=== PATIENT | female | born 1985 | race Caucasian/White ===

== ENCOUNTER 2016-12-08 17:37 | Emergency (ER) | payer MEDICAID ==
[~2016-12-08] VITALS: Ht 160 cm; Wt 86.2 kg
[~2016-12-08 17:37] MED LIST: ALPR0.5T96 PO; NAPR-688 PO; TRAM50TA92 PO
[2016-12-08 17:40] VITALS: BP 120/86; PULSE 65; RESP 16; TEMP 97.2; O2SAT 100
--- NOTE | 2016-12-08 17:49 | NUR ---
Patient to ER bed 3 to [facility] for evaluation. Side rails up. Report given to RADHA INTERIANO. Addendum: 12/08/16 at 1754 by GENESIS report given to Uma INTERIAON
--- NOTE | 2016-12-08 17:55 | NUR ---
Patient in stable condition, alert and oriented x4. Patient was in parking lot last night when tripped on curb in between cars and caught self on cars but left arm swung back due to catching on car. States has pain to left foot and left shoulder. Active range of motion to left foot ankle. Patient can not move left arm without pain. No deformites/bruising/swelling noted. No other complaints/injuries per patient or noted. Addendum: 12/08/16 at 1810 by AYDEE Active range of motion to left foot/ankle.
--- NOTE | 2016-12-08 17:58 | NUR ---
Jimena MEDIA ASSISTANT at bedside examining patient.
[2016-12-08] MEDS ORDERED: KETOROLAC TROMETHAMINE 60 MG/2 ML VIAL IM ONE (18:00)
[2016-12-08 19:10] VITALS: BP 122/76; PULSE 66; RESP 16; TEMP 97.2; O2SAT 100
--- NOTE | 2016-12-08 19:10 | NUR ---
Patient given written and verbal discharge instructions and verbalizes understanding. ER MD Ramirez discussed with patient the results and treatment provided. Patient in stable condition. ID arm band removed. Rx of tramadol, motrin given. Patient educated on pain management and to follow up with PMD. Pain Scale 0/10 Opportunity for questions provided and answered.
== END 2016-12-08 19:10 | disposition home or self-care (01) ==
LOC: SED 17:37
DX: S43.402A Unspecified sprain of left shoulder joint, initial encounter (principal); C53.9 Malignant neoplasm of cervix uteri, unspecified; Z90.710 Acquired absence of both cervix and uterus; Z98.890 Other specified postprocedural states; W19.XXXA Unspecified fall, initial encounter; Y93.89 Activity, other specified; Y99.8 Other external cause status; Y92.89 Other specified places as the place of occurrence of the external cause
CPT/HCPCS: 73030; 81025; 96372; 99284; J1885

== ENCOUNTER 2016-12-13 08:21 | Inpatient (IN) | payer MEDICAID ==
[~2016-12-13] VITALS: Ht 160 cm; Wt 86.2 kg
[2016-12-13 08:30] VITALS: BP 126/75; PULSE 91; RESP 14; TEMP 97.8; O2SAT 100
[2016-12-13] MEDS ORDERED: HYDROmorphone 1 MG INJ. 1 MG/ML AMPUL IVP ONE ×2 (09:15→11:15)
[2016-12-13] MEDS ORDERED: ONDANSETRON HCL 4 MG/2 ML VIAL IVP ONE (09:15)
[2016-12-13 09:29] LABS: BASOPHILS % (AUTO) 0.5 % (0.0-2.0); EOSINOPHILS # (AUTO) 0.1 K/uL (0.0-0.4); EOSINOPHILS % (AUTO) 2.6 % (0.0-4.0); HEMATOCRIT 34.6 % (36-48); HEMOGLOBIN 11.7 g/dL (12.0-16.0); LYMPHOCYTES # (AUTO) 1.8 K/uL (1.0-5.5); LYMPHOCYTES % (AUTO) 35.5 % (20.5-51.5); MEAN CORPUSCULAR HEMOGLOBIN 31 pg (27-31); MEAN CORPUSCULAR HGB CONC 34 % (32-36); MEAN CORPUSCULAR VOLUME 92 fL (79.0-98.0); MONOCYTES # (AUTO) 0.4 K/uL (0.0-1.0); MONOCYTES % (AUTO) 7.5 % (1.7-9.3); NEUTROPHILS # (AUTO) 2.7 K/uL (1.8-7.7); NEUTROPHILS % (AUTO) 53.9 % (40.0-70.0); PLATELET COUNT (AUTO) 282 K/uL (130-430); RED BLOOD CELL COUNT(AUTO) 3.75 MIL/uL (4.2-6.2); RED CELL DISTRIBUTION WIDTH 11.9 % (9.0-15.0)
[2016-12-13 09:49] LABS: CALCIUM 8.9 mg/dL (8.4-11.0); CREATININE 0.74 mg/dL (0.55-1.30); POTASSIUM 3.6 mmol/L (3.5-5.1)
[2016-12-13 10:02] LABS: TOTAL BILIRUBIN 0.4 mg/dL (0.0-1.0)
[2016-12-13 11:17] LABS: BILIRUBIN,URINE NEGATIVE (NEGATIVE); CLARITY/URINE CLEAR (CLEAR); COLOR,URINE YELLOW (YELLOW); GLUCOSE,URINE NEGATIVE (NEGATIVE); KETONES,URINE NEGATIVE (NEGATIVE); LEUKOCYTE ESTERASE ,URINE NEGATIVE (NEGATIVE); NITRITE, URINE NEGATIVE (NEGATIVE); PH,URINE 5.5 (5.0-8.0); PROTEIN URINE NEGATIVE (NEGATIVE); UROBILINOGEN,URINE 0.2 (0.2-1.0)
[2016-12-13 11:39] LABS: BLOOD, URINE TRACE (NEGATIVE)
[2016-12-13 11:58] LABS: BACTERIA,URINE RARE /HPF (None Seen); MUCUS,URINE 1+ /LPF (None Seen); RBC,URINE 0-3 /HPF (0-3)
[2016-12-13 12:10] LABS: PROTHROMBIN TIME 11.2 SECS (9.5-12.5)
[2016-12-13 13:28] VITALS: BP 118/96; PULSE 80; RESP 17; TEMP 98.1; O2SAT 97
[2016-12-13] MEDS ORDERED: IPRATROPIUM BROM 0.5 MG/2.5 ML VIAL.NEB (ATROVENT) INH PRN (13:30)
[2016-12-13] MEDS ORDERED: ACETAMINOPHEN 325 MG TABLET PO PRN (13:30)
[2016-12-13] MEDS ORDERED: ALBUTEROL SULFATE 0.083% 2.5 MG/3 ML VIAL.NEB INH PRN (13:30)
[2016-12-13] MEDS: MORPHINE 4 MG/ML INJ. SYRINGE IVP PRN ×2 (13:42→21:06)
[2016-12-13] MEDS ORDERED: PANTOPRAZOLE SODIUM 40 MG/VIAL (PROTONIX) IVP ONE (13:45)
[2016-12-13] MEDS: D5NS 1,000 ML IV SCH (13:53)
[2016-12-13 14:27] LABS: HEMATOCRIT 32.9 % (36-48); HEMOGLOBIN 11.2 g/dL (12.0-16.0)
[2016-12-13] MEDS ORDERED: IPRATROPIUM BROM 0.5 MG/2.5 ML VIAL.NEB (ATROVENT) INH SCH (15:00)
[2016-12-13] MEDS ORDERED: ALBUTEROL SULFATE 0.083% 2.5 MG/3 ML VIAL.NEB INH SCH (15:00)
[2016-12-13 15:50] VITALS: BP 115/73; PULSE 70
[2016-12-13] MEDS: ONDANSETRON HCL 4 MG/2 ML VIAL IVP PRN ×2 (16:11→22:20)
[2016-12-13] MEDS: MORPHINE 2 MG/ML INJ. SYRINGE IVP PRN (16:12)
[2016-12-13 16:30] VITALS: BP 115/73; PULSE 66; RESP 16; TEMP 97; O2SAT 97
[2016-12-13] MEDS ORDERED: BISACODYL 5 MG TABLET.DR (DULCOLAX) PO ONE (17:00)
[2016-12-13] MEDS ORDERED: GOLYTELY / COLYTE SOLUTION 4 LITERS PO ONE (18:00)
[2016-12-13 19:10] VITALS: BP 134/82; PULSE 74; RESP 19; TEMP 98.2; O2SAT 98
[2016-12-13] MEDS: PANTOPRAZOLE SODIUM 40 MG/VIAL (PROTONIX) IVP SCH (21:02)
[2016-12-13 21:57] LABS: HEMATOCRIT 31.8 % (36-48)
[2016-12-13 22:01] LABS: HEMOGLOBIN 10.7 g/dL (12.0-16.0)
[2016-12-14 00:28] VITALS: BP 120/58; PULSE 63; RESP 16; TEMP 97.3; O2SAT 98
[2016-12-14] MEDS: D5NS 1,000 ML IV SCH ×2 (02:31→11:23)
[2016-12-14] MEDS: ONDANSETRON HCL 4 MG/2 ML VIAL IVP PRN ×2 (04:37→11:13)
[2016-12-14] MEDS: MORPHINE 2 MG/ML INJ. SYRINGE IVP PRN ×2 (04:38→11:14)
[2016-12-14 04:51] VITALS: BP 126/82; PULSE 78; RESP 17; TEMP 98; O2SAT 99
[2016-12-14 07:49] LABS: HEMATOCRIT 32.5 % (36-48)
[2016-12-14] MEDS: PANTOPRAZOLE SODIUM 40 MG/VIAL (PROTONIX) IVP SCH (08:31)
[2016-12-14] MEDS ORDERED: FERR-57 PO (11:41)
[2016-12-14] MEDS ORDERED: PRO40 PO (11:41)
[2016-12-14 12:00] VITALS: BP 118/76; PULSE 74; RESP 16; TEMP 98.9; O2SAT 95
[2016-12-14 12:12] VITALS: BP 118/74; PULSE 74; RESP 18; TEMP 98.9; O2SAT 95
== END 2016-12-14 13:40 | disposition home or self-care (01) | DRG 253 ==
LOC: SED 08:22 → SMU 12:39
PROVIDERS: ADMIT Internal Medicine Hospice and Palliative Medicine; ATTEND Internal Medicine Hospice and Palliative Medicine
DX: K92.2 Gastrointestinal hemorrhage, unspecified (principal); C53.9 Malignant neoplasm of cervix uteri, unspecified; F41.9 Anxiety disorder, unspecified; J45.909 Unspecified asthma, uncomplicated; Z93.3 Colostomy status; Z90.710 Acquired absence of both cervix and uterus
CPT/HCPCS: 36415; 80053; 81000-TC; 82150-TC; 82272; 83605; 83690-TC; 85018-TC; 85025; 85610-TC; 85730-TC; 86886; 86900; 86901; 87040-TC; 96374; 96375; 96376; 99291; C9113; J1170; J2270; J2405; J7030; J7042

== ENCOUNTER 2017-03-18 14:13 | Emergency (ER) | payer MEDICAID ==
[~2017-03-18] VITALS: Ht 160 cm; Wt 70.8 kg
[~2017-03-18 14:13] MED LIST changes: +FERR-57 PO; +PRO40 PO
[2017-03-18 14:16] VITALS: BP 155/56; PULSE 120; RESP 18; TEMP 98.3; O2SAT 98
--- NOTE | 2017-03-18 14:21 | NUR ---
Placed in room [address] on [address] monitor, blood pressure machine and pulse oximeter. To gown for exam. Side rails up. Report given to Patricio
--- NOTE | 2017-03-18 14:22 | NUR ---
Dr Wild at bedside exmaining patient
[2017-03-18] MEDS ORDERED: HYDROmorphone 2 MG/ML VIAL IVP ONE (14:30)
[2017-03-18] MEDS ORDERED: DIPHENHYDRAMINE INJ 50 MG/ML VIAL IVP ONE (14:30)
[2017-03-18] MEDS ORDERED: ONDANSETRON HCL 4 MG/2 ML VIAL IVP ONE (14:30)
--- NOTE | 2017-03-18 14:30 | NUR ---
Pt presenst to Ed c/o SOB. Pt appears anxious and nonrebreather applied for pt's hyperventilation.#20 gauge angiocath placed to . Use of asceptic technique. Opsite placed over site. Blood return noted. Blood for lab drawn from site. Flushed with 10 cc of normal saline. No evidence of infiltration noted. Patient tolerated well.
[2017-03-18 14:51] LABS: BASOPHILS % (AUTO) 0.4 % (0.0-2.0); EOSINOPHILS # (AUTO) 0.4 K/uL (0.0-0.4); EOSINOPHILS % (AUTO) 4.7 % (0.0-4.0); HEMATOCRIT 38.9 % (36-48); HEMOGLOBIN 12.5 g/dL (12.0-16.0); LYMPHOCYTES # (AUTO) 3.8 K/uL (1.0-5.5); LYMPHOCYTES % (AUTO) 44.2 % (20.5-51.5); MEAN CORPUSCULAR HEMOGLOBIN 29 pg (27-31); MEAN CORPUSCULAR HGB CONC 32 % (32-36); MEAN CORPUSCULAR VOLUME 91 fL (79.0-98.0); MONOCYTES # (AUTO) 0.9 K/uL (0.0-1.0); MONOCYTES % (AUTO) 9.9 % (1.7-9.3); NEUTROPHILS # (AUTO) 3.6 K/uL (1.8-7.7); NEUTROPHILS % (AUTO) 40.8 % (40.0-70.0); PLATELET COUNT (AUTO) 321 K/uL (130-430); RED CELL DISTRIBUTION WIDTH 12.8 % (9.0-15.0); WHITE BLOOD COUNT (AUTO) 8.7 K/uL (4.8-10.8)
--- NOTE | 2017-03-18 15:00 | NUR ---
Urine specimen collected and sent.
[2017-03-18 15:25] LABS: ANION GAP 8 (5-15); CALCIUM 8.9 mg/dL (8.4-11.0); CHLORIDE 102 mmol/L (98-107); CREATININE 0.77 mg/dL (0.55-1.30); GLUCOSE 99 mg/dL (70-99); POTASSIUM 3.8 mmol/L (3.5-5.1); SODIUM SERUM 135 mmol/L (136-145); UREA NITROGEN, BLOOD 16 mg/dL (8-21)
[2017-03-18 15:26] LABS: INR 0.9 (0.8-1.2); PROTHROMBIN TIME 10.3 SECS (9.5-12.5)
[2017-03-18 15:29] LABS: ALANINE AMINOTRANSFERASE 20 U/L (12-78); ALBUMIN 4.1 g/dL (3.4-4.8); ASPARTATE AMINOTRANSFERASE 17 U/L (10-37); TOTAL BILIRUBIN 0.3 mg/dL (0.0-1.0); TOTAL PROTEIN, SERUM 8.7 g/dL (6.4-8.3)
[2017-03-18 15:30] LABS: GFR AFRICAN AMERICAN 112 mL/min (>90)
[2017-03-18 15:31] LABS: ALCOHOL, BLOOD < 3 mg/dL (<10)
--- NOTE | 2017-03-18 15:32 | NUR ---
Pt has family at bedside helping to keep pot calm.
[2017-03-18 15:36] LABS: BILIRUBIN,URINE NEGATIVE (NEGATIVE); CLARITY/URINE HAZY (CLEAR); COLOR,URINE YELLOW (YELLOW); GLUCOSE,URINE NEGATIVE (NEGATIVE); KETONES,URINE NEGATIVE (NEGATIVE); LEUKOCYTE ESTERASE ,URINE NEGATIVE (NEGATIVE); NITRITE, URINE NEGATIVE (NEGATIVE); PROTEIN URINE NEGATIVE (NEGATIVE); UROBILINOGEN,URINE 0.2 (0.2-1.0)
[2017-03-18 15:38] LABS: BLOOD, URINE TRACE (NEGATIVE)
--- NOTE | 2017-03-18 15:40 | NUR ---
Pt reports h/o seizures. Pt taking dilantin and
--- NOTE | 2017-03-18 15:40 | NUR ---
seizure pads applied
--- NOTE | 2017-03-18 15:42 | NUR ---
Dr. Wild informed, Dilantin level addwds to labs.
[2017-03-18 15:59] LABS: BACTERIA,URINE FEW /HPF (None Seen); MUCUS,URINE None Seen /LPF (None Seen); RBC,URINE 0-3 /HPF (0-3)
--- NOTE | 2017-03-18 16:20 | NUR ---
Patient given written and verbal discharge instructions and verbalizes understanding. ER MD discussed with patient the results and treatment provided. Patient in stable condition. ID arm band removed. IV catheter removed intact and dressing applied, no active bleeding. Rx of dilantin given. Patient educated on pain management and to follow up with PMD. Pain Scale 2 Opportunity for questions provided and answered.
[2017-03-18 16:30] VITALS: BP 140/62; PULSE 86; RESP 18; TEMP 98.2; O2SAT 98
[2017-03-18 16:35] LABS: BARBITURATE, URINE NEGATIVE (NEG <=200); BENZODIAZEPINE, URINE POSITIVE (NEG <=150); CANNABINOID, URINE NEGATIVE (NEG <=50); COCAINE, URINE NEGATIVE (NEG <=150); METHAMPHETAMINES SCREEN,URINE NEGATIVE (NEG <=500); OPIATE, URINE POSITIVE (NEG <=100); PHENCYCLIDINE SCREEN,URINE NEGATIVE (NEG <=25); UR TRICYCLIC ANTIDEPRESSANTS NEGATIVE (NEG <=300); URINE AMPHETAMINE NEGATIVE (NEG <=500); URINE METHADONE NEGATIVE (NEG <=200); URINE OXYCODONE SCREEN NEGATIVE (NEG <=100); URINE PROPOXYPHENE SCREEN NEGATIVE (NEG <=300)
== END 2017-03-18 16:30 | disposition home or self-care (01) ==
LOC: SED 14:13
DX: S29.012A Strain of muscle and tendon of back wall of thorax, initial encounter (principal); F41.9 Anxiety disorder, unspecified; J44.9 Chronic obstructive pulmonary disease, unspecified; Z85.41 Personal history of malignant neoplasm of cervix uteri; X58.XXXA Exposure to other specified factors, initial encounter; Y93.E1 Activity, personal bathing and showering; Y92.002 Bathroom of unspecified non-institutional (private) residence as the place of occurrence of the external cause; Y99.8 Other external cause status
CPT/HCPCS: 36415; 71010; 80053; 80185; 80307; 81000; 83880; 84484; 85025; 85379; 85610; 93005; 96374; 96375; 99285; G0482; J1170; J1200; J2405

== ENCOUNTER 2017-06-16 08:30 | Emergency (ER) | payer MEDICAID ==
[~2017-06-16] VITALS: Ht 160 cm; Wt 81.6 kg
[~2017-06-16 08:30] MED LIST changes: -NAPR-688 PO
[2017-06-16 08:39] VITALS: BP_SYST 131
--- NOTE | 2017-06-16 08:50 | NUR ---
Patient to ER bed 3 to gown for evaluation. Side rails up. Report given to Patricio INTERIANO.
--- NOTE | 2017-06-16 08:51 | NUR ---
CHALO Leon at bedside examining patient.
--- NOTE | 2017-06-16 08:53 | NUR ---
urine specimen collected and sent.
--- NOTE | 2017-06-16 09:00 | NUR ---
Pt presents to Ed c/o L flank, arm,leg pain x 4 days worsening this AM with c/o nausea. Pt h/o bowel resection and colon ca. No acute distress noted at this time. Will continue monitor.
--- NOTE | 2017-06-16 09:33 | NUR ---
Patient transported to radiology via gurney, accompanied by rad staff.
[2017-06-16 09:37] LABS: BILIRUBIN,URINE NEGATIVE (NEGATIVE); CLARITY/URINE SL HAZY (CLEAR); COLOR,URINE YELLOW (YELLOW); GLUCOSE,URINE NEGATIVE (NEGATIVE); KETONES,URINE NEGATIVE (NEGATIVE); LEUKOCYTE ESTERASE ,URINE NEGATIVE (NEGATIVE); NITRITE, URINE NEGATIVE (NEGATIVE); PROTEIN URINE NEGATIVE (NEGATIVE); UROBILINOGEN,URINE 0.2 (0.2-1.0)
[2017-06-16] MEDS ORDERED: ONDANSETRON 4 MG ODT TAB PO ONE (09:45)
[2017-06-16 09:53] LABS: BLOOD, URINE TRACE (NEGATIVE)
[2017-06-16 09:53] LABS: BASOPHILS % (AUTO) 0.3 % (0.0-2.0); EOSINOPHILS # (AUTO) 0.1 K/uL (0.0-0.4); EOSINOPHILS % (AUTO) 1.8 % (0.0-4.0); HEMOGLOBIN 11.7 g/dL (12.0-16.0); LYMPHOCYTES # (AUTO) 1.4 K/uL (1.0-5.5); LYMPHOCYTES % (AUTO) 32.2 % (20.5-51.5); MEAN CORPUSCULAR HEMOGLOBIN 31 pg (27-31); MEAN CORPUSCULAR HGB CONC 34 % (32-36); MEAN CORPUSCULAR VOLUME 91 fL (79.0-98.0); MONOCYTES # (AUTO) 0.3 K/uL (0.0-1.0); MONOCYTES % (AUTO) 8.1 % (1.7-9.3); NEUTROPHILS # (AUTO) 2.5 K/uL (1.8-7.7); NEUTROPHILS % (AUTO) 57.6 % (40.0-70.0); PLATELET COUNT (AUTO) 275 K/uL (130-430); RED BLOOD CELL COUNT(AUTO) 3.74 MIL/uL (4.2-6.2); RED CELL DISTRIBUTION WIDTH 12.7 % (9.0-15.0); WHITE BLOOD COUNT (AUTO) 4.3 K/uL (4.8-10.8)
[2017-06-16 09:55] LABS: RBC,URINE 0-3 /HPF (0-3); WBC,URINE 0-3 /HPF (0-3)
[2017-06-16 09:56] LABS: BACTERIA,URINE RARE /HPF (None Seen)
[2017-06-16 09:58] LABS: BARBITURATE, URINE POSITIVE (NEG <=200); BENZODIAZEPINE, URINE POSITIVE (NEG <=150); CANNABINOID, URINE NEGATIVE (NEG <=50); COCAINE, URINE NEGATIVE (NEG <=150); METHAMPHETAMINES SCREEN,URINE NEGATIVE (NEG <=500); OPIATE, URINE NEGATIVE (NEG <=100); PHENCYCLIDINE SCREEN,URINE NEGATIVE (NEG <=25); UR TRICYCLIC ANTIDEPRESSANTS NEGATIVE (NEG <=300); URINE AMPHETAMINE NEGATIVE (NEG <=500); URINE METHADONE NEGATIVE (NEG <=200); URINE OXYCODONE SCREEN NEGATIVE (NEG <=100); URINE PROPOXYPHENE SCREEN NEGATIVE (NEG <=300)
[2017-06-16 10:02] LABS: CALCIUM 8.8 mg/dL (8.4-11.0); CREATININE 0.68 mg/dL (0.55-1.30); POTASSIUM 3.8 mmol/L (3.5-5.1)
--- NOTE | 2017-06-16 10:05 | NUR ---
Pt medicated for nausea tolerated well.
[2017-06-16 10:17] LABS: ALBUMIN 3.6 g/dL (3.4-4.8); THYROID STIMULATING HORMONE 0.8 uIu/mL (0.34-4.82); TOTAL BILIRUBIN 0.5 mg/dL (0.0-1.0); TOTAL PROTEIN, SERUM 7.7 g/dL (6.4-8.3)
[2017-06-16 10:55] VITALS: BP_SYST 132
--- NOTE | 2017-06-16 10:55 | NUR ---
Patient given written and verbal discharge instructions and verbalizes understanding. ER MD discussed with patient the results and treatment provided. Patient in stable condition. ID arm band removed. No Rx given. Patient educated on pain management and to follow up with PMD. Pain Scale 0 Opportunity for questions provided and answered.
== END 2017-06-16 10:55 | disposition home or self-care (01) ==
LOC: SED 08:30
DX: R20.0 Anesthesia of skin (principal); R53.1 Weakness; J44.9 Chronic obstructive pulmonary disease, unspecified; Z85.41 Personal history of malignant neoplasm of cervix uteri; Z79.899 Other long term (current) drug therapy
CPT/HCPCS: 36415; 70450; 80053; 80307; 81000; 81025; 84443; 85025; 93005; 99285; Q0162

== ENCOUNTER 2017-10-29 09:23 | Emergency (ER) | payer MEDICAID ==
[~2017-10-29] VITALS: Ht 160 cm; Wt 83.9 kg
[2017-10-29 09:51] VITALS: BP_SYST 149
[2017-10-29 10:21] LABS: BILIRUBIN,URINE NEGATIVE (NEGATIVE); BLOOD, URINE NEGATIVE (NEGATIVE); CLARITY/URINE CLEAR (CLEAR); COLOR,URINE YELLOW (YELLOW); GLUCOSE,URINE NEGATIVE (NEGATIVE); KETONES,URINE NEGATIVE (NEGATIVE); LEUKOCYTE ESTERASE ,URINE NEGATIVE (NEGATIVE); NITRITE, URINE NEGATIVE (NEGATIVE); PH,URINE 5.5 (5.0-8.0); PROTEIN URINE NEGATIVE (NEGATIVE); UROBILINOGEN,URINE 0.2 (0.2-1.0)
[2017-10-29 10:48] LABS: BASOPHILS % (AUTO) 0.5 % (0.0-2.0); EOSINOPHILS # (AUTO) 0.2 K/uL (0.0-0.4); EOSINOPHILS % (AUTO) 3.2 % (0.0-4.0); HEMATOCRIT 39.2 % (36-48); HEMOGLOBIN 12.9 g/dL (12.0-16.0); LYMPHOCYTES # (AUTO) 2.2 K/uL (1.0-5.5); LYMPHOCYTES % (AUTO) 39.4 % (20.5-51.5); MEAN CORPUSCULAR HEMOGLOBIN 30 pg (27-31); MEAN CORPUSCULAR HGB CONC 33 % (32-36); MEAN CORPUSCULAR VOLUME 92 fL (79.0-98.0); MONOCYTES # (AUTO) 0.3 K/uL (0.0-1.0); MONOCYTES % (AUTO) 6.1 % (1.7-9.3); NEUTROPHILS # (AUTO) 2.8 K/uL (1.8-7.7); NEUTROPHILS % (AUTO) 50.8 % (40.0-70.0); PLATELET COUNT (AUTO) 305 K/uL (130-430); RED BLOOD CELL COUNT(AUTO) 4.26 MIL/uL (4.2-6.2); RED CELL DISTRIBUTION WIDTH 12.2 % (9.0-15.0); WHITE BLOOD COUNT (AUTO) 5.5 K/uL (4.8-10.8)
[2017-10-29 11:06] LABS: CREATININE 0.56 mg/dL (0.55-1.30); POTASSIUM 4.2 mmol/L (3.5-5.1)
[2017-10-29 11:12] LABS: ALBUMIN 3.6 g/dL (3.4-4.8); TOTAL BILIRUBIN 0.5 mg/dL (0.0-1.0)
[2017-10-29 11:57] VITALS: BP_SYST 148
== END 2017-10-29 11:57 | disposition home or self-care (01) ==
LOC: SED 09:23
DX: J06.9 Acute upper respiratory infection, unspecified (principal); R10.32 Left lower quadrant pain; J44.9 Chronic obstructive pulmonary disease, unspecified; Z85.41 Personal history of malignant neoplasm of cervix uteri; Z79.899 Other long term (current) drug therapy
CPT/HCPCS: 36415; 80053; 81003; 83690-TC; 85025; 86403; 86710; 87081; 99284

== ENCOUNTER 2017-12-14 09:47 | Emergency (ER) | payer MEDICAID ==
[~2017-12-14] VITALS: Ht 160 cm; Wt 83.9 kg
[2017-12-14 09:47] VITALS: BP_SYST 125
[2017-12-14] MEDS ORDERED: NACL 0.9% 1,000 ML IV ONE (10:05)
[2017-12-14] MEDS ORDERED: MORPHINE 4 MG/ML INJ. SYRINGE IVP ONE (10:15)
[2017-12-14] MEDS ORDERED: ONDANSETRON HCL 4 MG/2 ML VIAL IVP ONE (10:15)
[2017-12-14] MEDS ORDERED: ASPIRIN 325 MG TABLET PO ONE (10:15)
[2017-12-14 10:35] LABS: BILIRUBIN,URINE NEGATIVE (NEGATIVE); BLOOD, URINE 1+ (NEGATIVE); CLARITY/URINE CLEAR (CLEAR); COLOR,URINE YELLOW (YELLOW); GLUCOSE,URINE NEGATIVE (NEGATIVE); KETONES,URINE NEGATIVE (NEGATIVE); LEUKOCYTE ESTERASE ,URINE NEGATIVE (NEGATIVE); NITRITE, URINE NEGATIVE (NEGATIVE); PROTEIN URINE NEGATIVE (NEGATIVE); UROBILINOGEN,URINE 0.2 (0.2-1.0)
[2017-12-14 10:46] LABS: BACTERIA,URINE FEW /HPF (None Seen); MUCUS,URINE 1+ /LPF (None Seen); WBC,URINE 0-3 /HPF (0-3)
[2017-12-14 11:03] LABS: EOSINOPHILS # (AUTO) 0.1 K/uL (0.0-0.4); MEAN CORPUSCULAR VOLUME 92 fL (79.0-98.0); RED CELL DISTRIBUTION WIDTH 11.9 % (9.0-15.0)
[2017-12-14 11:10] LABS: BASOPHILS % (AUTO) 0.7 % (0.0-2.0); EOSINOPHILS % (AUTO) 2.2 % (0.0-4.0); HEMATOCRIT 37.8 % (36-48); HEMOGLOBIN 12.9 g/dL (12.0-16.0); LYMPHOCYTES # (AUTO) 1.5 K/uL (1.0-5.5); LYMPHOCYTES % (AUTO) 35.6 % (20.5-51.5); MEAN CORPUSCULAR HEMOGLOBIN 31 pg (27-31); MEAN CORPUSCULAR HGB CONC 34 % (32-36); MONOCYTES # (AUTO) 0.4 K/uL (0.0-1.0); MONOCYTES % (AUTO) 8.5 % (1.7-9.3); NEUTROPHILS # (AUTO) 2.3 K/uL (1.8-7.7); PLATELET COUNT (AUTO) 300 K/uL (130-430); RED BLOOD CELL COUNT(AUTO) 4.09 MIL/uL (4.2-6.2); WHITE BLOOD COUNT (AUTO) 4.3 K/uL (4.8-10.8)
[2017-12-14 11:18] LABS: CREATININE 0.65 mg/dL (0.55-1.30); POTASSIUM 3.8 mmol/L (3.5-5.1)
[2017-12-14 11:21] LABS: PROTHROMBIN TIME 10.4 SECS (9.5-12.5)
[2017-12-14 11:24] LABS: ALBUMIN 3.6 g/dL (3.4-4.8); TOTAL BILIRUBIN 0.6 mg/dL (0.0-1.0)
[2017-12-14 11:49] VITALS: BP_SYST 115
== END 2017-12-14 11:49 | disposition home or self-care (01) ==
LOC: SED 09:47
DX: R10.32 Left lower quadrant pain (principal); R11.0 Nausea; R51 Headache; J45.909 Unspecified asthma, uncomplicated; Z90.710 Acquired absence of both cervix and uterus; Z85.41 Personal history of malignant neoplasm of cervix uteri; Z98.890 Other specified postprocedural states; Z79.899 Other long term (current) drug therapy
CPT/HCPCS: 36415; 74176; 80053; 81000; 82150; 83690; 84484; 85025; 85610; 85730; 93005; 96361; 96374; 96375; 99285; J2270; J2405; J7030

== ENCOUNTER 2018-01-03 08:58 | Emergency (ER) | payer MEDICAID ==
[~2018-01-03] VITALS: Ht 160 cm; Wt 84.8 kg
[2018-01-03 09:15] VITALS: BP_SYST 125
[2018-01-03 09:38] LABS: BASOPHILS % (AUTO) 0.5 % (0.0-2.0); EOSINOPHILS # (AUTO) 0.1 K/uL (0.0-0.4); EOSINOPHILS % (AUTO) 1.8 % (0.0-4.0); HEMATOCRIT 37.8 % (36-48); HEMOGLOBIN 12.8 g/dL (12.0-16.0); LYMPHOCYTES # (AUTO) 1.8 K/uL (1.0-5.5); MEAN CORPUSCULAR HEMOGLOBIN 31 pg (27-31); MEAN CORPUSCULAR HGB CONC 34 % (32-36); MEAN CORPUSCULAR VOLUME 92 fL (79.0-98.0); MONOCYTES # (AUTO) 0.3 K/uL (0.0-1.0); MONOCYTES % (AUTO) 6.2 % (1.7-9.3); NEUTROPHILS # (AUTO) 3.1 K/uL (1.8-7.7); NEUTROPHILS % (AUTO) 56.5 % (40.0-70.0); PLATELET COUNT (AUTO) 355 K/uL (130-430); RED BLOOD CELL COUNT(AUTO) 4.11 MIL/uL (4.2-6.2); RED CELL DISTRIBUTION WIDTH 12.1 % (9.0-15.0); WHITE BLOOD COUNT (AUTO) 5.3 K/uL (4.8-10.8)
[2018-01-03 09:50] LABS: CALCIUM 9.1 mg/dL (8.4-11.0); CREATININE 0.64 mg/dL (0.55-1.30); POTASSIUM 3.5 mmol/L (3.5-5.1)
--- NOTE | 2018-01-03 10:21 | NUR ---
[facility] ER [facility] Side rails up. Report given to Stephani INTERIANO.
--- NOTE | 2018-01-03 10:28 | NUR ---
ER Dr. Carrasquillo at bedside examining patient.
--- NOTE | 2018-01-03 10:35 | NUR ---
Patient given written and verbal discharge instructions and verbalizes understanding. ER MD discussed with patient the results and treatment provided. Patient in stable condition. ID arm band removed. Rx of Prednisone, tylenol, Robitussin given. Patient educated on pain management and to follow up with PMD. Pain Scale 0/10. Opportunity for questions provided and answered. Medication side effect fact sheet provided.
== END 2018-01-03 10:35 | disposition home or self-care (01) ==
LOC: SED 08:58
DX: J40 Bronchitis, not specified as acute or chronic (principal); R10.30 Lower abdominal pain, unspecified; R03.0 Elevated blood-pressure reading, without diagnosis of hypertension; Z85.41 Personal history of malignant neoplasm of cervix uteri; Z79.899 Other long term (current) drug therapy
CPT/HCPCS: 36415; 71046-TC; 80048; 85025; 99285

== ENCOUNTER 2018-05-08 23:33 | Emergency (ER) | payer MEDICAID ==
[~2018-05-08] VITALS: Ht 160 cm; Wt 83.9 kg
[2018-05-08 23:45] VITALS: BP_SYST 124
[2018-05-09] MEDS ORDERED: NACL 0.9% 1,000 ML IV ONE ×2 (00:37→03:00)
[2018-05-09] MEDS ORDERED: MORPHINE 4 MG/ML INJ. SYRINGE IVP ONE ×2 (00:45→03:00)
[2018-05-09] MEDS ORDERED: ONDANSETRON HCL 4 MG/2 ML VIAL IVP ONE (00:45)
[2018-05-09 01:18] LABS: BASOPHILS % (AUTO) 0.4 % (0.0-2.0); EOSINOPHILS % (AUTO) 0.9 % (0.0-4.0); HEMATOCRIT 34.5 % (36-48); HEMOGLOBIN 11.9 g/dL (12.0-16.0); MEAN CORPUSCULAR HEMOGLOBIN 32 pg (27-31); MEAN CORPUSCULAR HGB CONC 34 % (32-36); MEAN CORPUSCULAR VOLUME 94 fL (79.0-98.0); MONOCYTES # (AUTO) 0.5 K/uL (0.0-1.0); MONOCYTES % (AUTO) 10.1 % (1.7-9.3); NEUTROPHILS # (AUTO) 2.8 K/uL (1.8-7.7); NEUTROPHILS % (AUTO) 50.6 % (40.0-70.0); PLATELET COUNT (AUTO) 274 K/uL (130-430); RED BLOOD CELL COUNT(AUTO) 3.67 MIL/uL (4.2-6.2); RED CELL DISTRIBUTION WIDTH 12.2 % (9.0-15.0); WHITE BLOOD COUNT (AUTO) 5.3 K/uL (4.8-10.8)
[2018-05-09 01:21] LABS: CALCIUM 8.7 mg/dL (8.4-11.0); CREATININE 0.81 mg/dL (0.55-1.30); POTASSIUM 4.3 mmol/L (3.5-5.1)
[2018-05-09 01:26] LABS: ALBUMIN 3.6 g/dL (3.4-4.8); TOTAL BILIRUBIN 0.2 mg/dL (0.0-1.0)
[2018-05-09 01:39] LABS: BILIRUBIN,URINE NEGATIVE (NEGATIVE); BLOOD, URINE 1+ (NEGATIVE); CLARITY/URINE CLEAR (CLEAR); COLOR,URINE YELLOW (YELLOW); GLUCOSE,URINE NEGATIVE (NEGATIVE); KETONES,URINE NEGATIVE (NEGATIVE); LEUKOCYTE ESTERASE ,URINE NEGATIVE (NEGATIVE); NITRITE, URINE NEGATIVE (NEGATIVE); PROTEIN URINE NEGATIVE (NEGATIVE); UROBILINOGEN,URINE 0.2 (0.2-1.0)
[2018-05-09 01:53] LABS: BACTERIA,URINE FEW /HPF (None Seen); WBC,URINE 0-3 /HPF (0-3)
[2018-05-09] MEDS ORDERED: KETOROLAC TROMETHAMINE 30 MG VIAL IVP ONE (03:00)
[2018-05-09] MEDS ORDERED: DIPHENHYDRAMINE INJ 50 MG/ML VIAL IVP ONE (03:00)
[2018-05-09 04:32] VITALS: BP_SYST 112
== END 2018-05-09 04:32 | disposition home or self-care (01) ==
LOC: SED 23:33
DX: N83.201 Unspecified ovarian cyst, right side (principal); R10.32 Left lower quadrant pain; J45.909 Unspecified asthma, uncomplicated; Z90.710 Acquired absence of both cervix and uterus; Z85.41 Personal history of malignant neoplasm of cervix uteri; Z79.899 Other long term (current) drug therapy
CPT/HCPCS: 36415; 74176; 80053; 81000; 85025; 96361; 96374; 96375; 96376; 99285; J1200; J1885; J2270; J2405; J7030 ×2

== ENCOUNTER 2018-05-09 11:50 | Emergency (ER) | payer MEDICAID ==
[~2018-05-09] VITALS: Ht 160 cm; Wt 83.9 kg
[2018-05-09 11:50] VITALS: BP_SYST 117
[2018-05-09] MEDS ORDERED: MORPHINE 4 MG/ML INJ. SYRINGE IM ONE (12:15)
[2018-05-09] MEDS ORDERED: ONDANSETRON 4 MG ODT TAB PO ONE (12:15)
[2018-05-09 13:35] VITALS: BP_SYST 100
== END 2018-05-09 13:30 | disposition home or self-care (01) ==
LOC: SED 11:50
DX: N83.201 Unspecified ovarian cyst, right side (principal); J45.909 Unspecified asthma, uncomplicated; Z85.41 Personal history of malignant neoplasm of cervix uteri; Z90.710 Acquired absence of both cervix and uterus; Z79.899 Other long term (current) drug therapy
CPT/HCPCS: 96372; 99283; J2270; Q0162

== ENCOUNTER 2018-05-16 18:56 | Emergency (ER) | payer MEDICAID ==
[~2018-05-16] VITALS: Ht 160 cm; Wt 83.9 kg
[~2018-05-16 18:56] MED LIST changes: +ALPR0.5T PO; -ALPR0.5T96 PO
[2018-05-16 19:15] VITALS: BP_SYST 123
[2018-05-16] MEDS ORDERED: NACL 0.9% 1,000 ML IV ONE (19:41)
[2018-05-16] MEDS ORDERED: MORPHINE 4 MG/ML INJ. SYRINGE IVP ONE ×2 (19:45→22:00)
[2018-05-16] MEDS ORDERED: ONDANSETRON HCL 4 MG/2 ML VIAL IVP ONE (19:45)
[2018-05-16] MEDS ORDERED: KETOROLAC TROMETHAMINE 30 MG VIAL IVP ONE (19:45)
[2018-05-16 20:23] LABS: BILIRUBIN,URINE NEGATIVE (NEGATIVE); CLARITY/URINE CLEAR (CLEAR); COLOR,URINE YELLOW (YELLOW); GLUCOSE,URINE NEGATIVE (NEGATIVE); KETONES,URINE NEGATIVE (NEGATIVE); LEUKOCYTE ESTERASE ,URINE NEGATIVE (NEGATIVE); NITRITE, URINE NEGATIVE (NEGATIVE); PH,URINE 5.5 (5.0-8.0); PROTEIN URINE NEGATIVE (NEGATIVE); UROBILINOGEN,URINE 0.2 (0.2-1.0)
[2018-05-16 20:25] LABS: CALCIUM 8.4 mg/dL (8.4-11.0); CREATININE 0.73 mg/dL (0.55-1.30); POTASSIUM 3.8 mmol/L (3.5-5.1)
[2018-05-16 20:26] LABS: BASOPHILS % (AUTO) 0.3 % (0.0-2.0); EOSINOPHILS % (AUTO) 0.7 % (0.0-4.0); HEMATOCRIT 33.4 % (36-48); HEMOGLOBIN 11.8 g/dL (12.0-16.0); LYMPHOCYTES # (AUTO) 2.5 K/uL (1.0-5.5); LYMPHOCYTES % (AUTO) 45.6 % (20.5-51.5); MEAN CORPUSCULAR HEMOGLOBIN 33 pg (27-31); MEAN CORPUSCULAR HGB CONC 35 % (32-36); MEAN CORPUSCULAR VOLUME 94 fL (79.0-98.0); MONOCYTES # (AUTO) 0.5 K/uL (0.0-1.0); MONOCYTES % (AUTO) 8.9 % (1.7-9.3); NEUTROPHILS # (AUTO) 2.4 K/uL (1.8-7.7); NEUTROPHILS % (AUTO) 44.5 % (40.0-70.0); PLATELET COUNT (AUTO) 262 K/uL (130-430); RED BLOOD CELL COUNT(AUTO) 3.57 MIL/uL (4.2-6.2); RED CELL DISTRIBUTION WIDTH 12.1 % (9.0-15.0); WHITE BLOOD COUNT (AUTO) 5.4 K/uL (4.8-10.8)
[2018-05-16 20:27] LABS: BLOOD, URINE TRACE (NEGATIVE)
[2018-05-16 20:30] LABS: ALBUMIN 3.5 g/dL (3.4-4.8); TOTAL BILIRUBIN 0.3 mg/dL (0.0-1.0)
[2018-05-16 20:43] LABS: BACTERIA,URINE RARE /HPF (None Seen); WBC,URINE 0-3 /HPF (0-3)
[2018-05-16 22:55] VITALS: BP_SYST 118
== END 2018-05-16 22:55 | disposition home or self-care (01) ==
LOC: SED 18:56
DX: N83.209 Unspecified ovarian cyst, unspecified side (principal); K59.00 Constipation, unspecified; J45.909 Unspecified asthma, uncomplicated; Z90.710 Acquired absence of both cervix and uterus; Z85.41 Personal history of malignant neoplasm of cervix uteri; Z79.899 Other long term (current) drug therapy
CPT/HCPCS: 36415; 74176; 76856; 80053; 81000; 81025; 83690; 85025; 96361; 96374; 96375; 99285; J1885; J2270; J2405; J7030

== ENCOUNTER 2018-09-02 00:34 | Emergency (ER) | payer MEDICAID ==
[2018-09-02] MEDS ORDERED: fentaNYL CITRATE/PF 100 MCG/2 ML AMP IVP ONE (01:20)
[2018-09-02] MEDS ORDERED: methylPREDNISolone SOD SUCC/PF 62.5 MG/ML VIAL IVP ONE (01:20)
[2018-09-02] MEDS ORDERED: methylPREDNISolone SOD SUCC/PF 62.5 MG/ML VIAL ONE (01:34)
[2018-09-02] MEDS ORDERED: fentaNYL CITRATE/PF 100 MCG/2 ML AMP ONE (01:35)
== END 2018-09-02 02:25 | disposition home or self-care (01) ==
LOC: SED 00:34
DX: M79.602 Pain in left arm (principal)
CPT/HCPCS: 96374; 96375; 99284; J2930; J3010; 99281

== ENCOUNTER 2018-09-28 10:18 | Emergency (ER) | payer MEDICAID ==
[~2018-09-28] VITALS: Ht 160 cm; Wt 83.9 kg
[2018-09-28 10:38] VITALS: BP_SYST 126
[2018-09-28] MEDS ORDERED: KETOROLAC TROMETHAMINE 15 MG VIAL IVP ONE (11:00)
[2018-09-28 11:20] LABS: BASOPHILS % (AUTO) 0.9 % (0.0-2.0); EOSINOPHILS % (AUTO) 0.9 % (0.0-4.0); HEMATOCRIT 39.4 % (36-48); HEMOGLOBIN 12.6 g/dL (12.0-16.0); LYMPHOCYTES # (AUTO) 1.9 K/uL (1.0-5.5); LYMPHOCYTES % (AUTO) 35.4 % (20.5-51.5); MEAN CORPUSCULAR HEMOGLOBIN 30 pg (27-31); MEAN CORPUSCULAR HGB CONC 32 % (32-36); MEAN CORPUSCULAR VOLUME 94 fL (79.0-98.0); MONOCYTES # (AUTO) 0.4 K/uL (0.0-1.0); MONOCYTES % (AUTO) 7.4 % (1.7-9.3); NEUTROPHILS % (AUTO) 55.4 % (40.0-70.0); PLATELET COUNT (AUTO) 352 K/uL (130-430); RED BLOOD CELL COUNT(AUTO) 4.17 MIL/uL (4.2-6.2); RED CELL DISTRIBUTION WIDTH 12.1 % (9.0-15.0); WHITE BLOOD COUNT (AUTO) 5.3 K/uL (4.8-10.8)
[2018-09-28] MEDS ORDERED: fentaNYL CITRATE/PF 100 MCG/2 ML AMP IVP ONE (12:30)
[2018-09-28 12:34] LABS: BILIRUBIN,URINE NEGATIVE (NEGATIVE); BLOOD, URINE 1+ (NEGATIVE); CLARITY/URINE CLEAR (CLEAR); COLOR,URINE YELLOW (YELLOW); GLUCOSE,URINE NEGATIVE (NEGATIVE); KETONES,URINE NEGATIVE (NEGATIVE); LEUKOCYTE ESTERASE ,URINE NEGATIVE (NEGATIVE); NITRITE, URINE NEGATIVE (NEGATIVE); PROTEIN URINE NEGATIVE (NEGATIVE); UROBILINOGEN,URINE 0.2 (0.2-1.0)
[2018-09-28] MEDS ORDERED: ONDANSETRON HCL 4 MG/2 ML VIAL IVP ONE (12:45)
[2018-09-28 13:05] VITALS: BP_SYST 126
[2018-09-28 13:09] LABS: BACTERIA,URINE FEW /HPF (None Seen); WBC,URINE 0-3 /HPF (0-3)
[2018-09-30 00:49] LABS: CHLAMYDIA TRACHOMATIS NAA Negative (Negative); NEISSERIA GONORRHOEAE NAA Negative (Negative)
== END 2018-09-28 13:05 | disposition home or self-care (01) ==
LOC: SED 10:18
DX: O34.81 Maternal care for other abnormalities of pelvic organs, first trimester (principal); O26.891 Other specified pregnancy related conditions, first trimester; R10.2 Pelvic and perineal pain; R03.0 Elevated blood-pressure reading, without diagnosis of hypertension; J45.909 Unspecified asthma, uncomplicated; Z85.41 Personal history of malignant neoplasm of cervix uteri; Z90.710 Acquired absence of both cervix and uterus; Z79.899 Other long term (current) drug therapy; Z3A.01 Less than 8 weeks gestation of pregnancy
CPT/HCPCS: 36415; 74176; 81000; 81025; 84702; 85025; 87491; 87591; 96374; 96375; 99284; J1885; J3010

== ENCOUNTER 2018-10-02 20:27 | Emergency (ER) | payer MEDICAID ==
[~2018-10-02] VITALS: Ht 160 cm; Wt 83.9 kg
[2018-10-02 20:45] VITALS: BP_SYST 128
[2018-10-02] MEDS ORDERED: NACL 0.9% 1,000 ML IV ONE (21:44)
[2018-10-02] MEDS ORDERED: DIPHENHYDRAMINE INJ 50 MG/ML VIAL IVP ONE (21:45)
[2018-10-02] MEDS ORDERED: KETOROLAC TROMETHAMINE 30 MG VIAL IVP ONE (21:45)
[2018-10-02 21:56] LABS: BILIRUBIN,URINE NEGATIVE (NEGATIVE); BLOOD, URINE 1+ (NEGATIVE); CLARITY/URINE CLEAR (CLEAR); COLOR,URINE YELLOW (YELLOW); GLUCOSE,URINE NEGATIVE (NEGATIVE); KETONES,URINE 1+ (NEGATIVE); LEUKOCYTE ESTERASE ,URINE NEGATIVE (NEGATIVE); NITRITE, URINE NEGATIVE (NEGATIVE); PROTEIN URINE NEGATIVE (NEGATIVE); UROBILINOGEN,URINE 0.2 (0.2-1.0)
[2018-10-02 22:05] LABS: BACTERIA,URINE FEW /HPF (None Seen); MUCUS,URINE 1+ /LPF (None Seen); RBC,URINE 0-3 /HPF (0-3); WBC,URINE 0-3 /HPF (0-3)
[2018-10-02] MEDS ORDERED: ONDANSETRON HCL 4 MG/2 ML VIAL ONE (22:05)
[2018-10-02 22:06] LABS: BASOPHILS # (AUTO) 0.1 K/uL (0.0-0.2); BASOPHILS % (AUTO) 0.8 % (0.0-2.0); EOSINOPHILS # (AUTO) 0.1 K/uL (0.0-0.4); EOSINOPHILS % (AUTO) 0.8 % (0.0-4.0); HEMATOCRIT 36.1 % (36-48); HEMOGLOBIN 11.2 g/dL (12.0-16.0); LYMPHOCYTES # (AUTO) 2.4 K/uL (1.0-5.5); LYMPHOCYTES % (AUTO) 36.3 % (20.5-51.5); MEAN CORPUSCULAR HEMOGLOBIN 29 pg (27-31); MEAN CORPUSCULAR HGB CONC 31 % (32-36); MEAN CORPUSCULAR VOLUME 95 fL (79.0-98.0); MONOCYTES # (AUTO) 0.5 K/uL (0.0-1.0); MONOCYTES % (AUTO) 8.1 % (1.7-9.3); NEUTROPHILS # (AUTO) 3.5 K/uL (1.8-7.7); PLATELET COUNT (AUTO) 335 K/uL (130-430); RED BLOOD CELL COUNT(AUTO) 3.81 MIL/uL (4.2-6.2); WHITE BLOOD COUNT (AUTO) 6.6 K/uL (4.8-10.8)
[2018-10-02 22:14] LABS: CALCIUM 8.7 mg/dL (8.4-11.0); CREATININE 0.6 mg/dL (0.55-1.30); POTASSIUM 3.6 mmol/L (3.5-5.1)
[2018-10-02] MEDS ORDERED: ONDANSETRON HCL 4 MG/2 ML VIAL IVP ONE (22:15)
[2018-10-02 22:19] LABS: ALBUMIN 3.5 g/dL (3.4-4.8); TOTAL BILIRUBIN 0.4 mg/dL (0.0-1.0)
[2018-10-02] MEDS ORDERED: MORPHINE 4 MG/ML INJ. SYRINGE IVP ONE (23:00)
[2018-10-03 01:15] VITALS: BP_SYST 125
== END 2018-10-03 04:05 | disposition home or self-care (01) ==
LOC: SED 20:27
DX: N83.201 Unspecified ovarian cyst, right side (principal); Z85.41 Personal history of malignant neoplasm of cervix uteri; Z90.710 Acquired absence of both cervix and uterus; Z79.899 Other long term (current) drug therapy
CPT/HCPCS: 76830; 36415; 76857; 80053; 81000; 81025; 85025; 96361; 96374; 96375; 99284; J1200; J1885; J2270; J2405; J7030; 99285

== ENCOUNTER 2019-01-21 20:56 | Inpatient (IN) | payer MEDICAID ==
[~2019-01-21] VITALS: Ht 160 cm; Wt 89.5 kg
[2019-01-21 21:04] VITALS: BP_SYST 130
[2019-01-21] MEDS ORDERED: NACL 0.9% 1,000 ML IV ONE (21:19)
[2019-01-21] MEDS ORDERED: ONDANSETRON HCL 4 MG/2 ML VIAL IVP ONE (21:30)
[2019-01-21] MEDS ORDERED: MORPHINE 4 MG/ML INJ. SYRINGE IVP ONE ×2 (21:30→23:15)
[2019-01-21] MEDS ORDERED: DIPHENHYDRAMINE INJ 50 MG/ML VIAL IVP ONE ×2 (21:30→23:15)
[2019-01-21 21:35] LABS: BILIRUBIN,URINE NEGATIVE (NEGATIVE); BLOOD, URINE 1+ (NEGATIVE); CLARITY/URINE CLEAR (CLEAR); COLOR,URINE YELLOW (YELLOW); GLUCOSE,URINE NEGATIVE (NEGATIVE); KETONES,URINE NEGATIVE (NEGATIVE); LEUKOCYTE ESTERASE ,URINE NEGATIVE (NEGATIVE); NITRITE, URINE NEGATIVE (NEGATIVE); PH,URINE 5.5 (5.0-8.0); PROTEIN URINE NEGATIVE (NEGATIVE); UROBILINOGEN,URINE 0.2 (0.2-1.0)
[2019-01-21] MEDS ORDERED: IOHEXOL 350 mgI/mL, 150 ML INFUS..BTL IV ONE (21:37)
[2019-01-21] MEDS ORDERED: IOHEXOL 100 ML IV ONE (21:37)
[2019-01-21 21:40] LABS: BACTERIA,URINE FEW /HPF (None Seen); WBC,URINE 0-3 /HPF (0-3)
[2019-01-21 22:01] LABS: HEMATOCRIT 37.4 % (36-48); HEMOGLOBIN 12.6 g/dL (12.0-16.0); RED BLOOD CELL COUNT(AUTO) 4.03 MIL/uL (4.2-6.2); WHITE BLOOD COUNT (AUTO) 6.5 K/uL (4.8-10.8)
[2019-01-21 22:02] LABS: BASOPHILS % (AUTO) 0.3 % (0.0-2.0); CALCIUM 9.2 mg/dL (8.4-11.0); CREATININE 0.68 mg/dL (0.55-1.30); MEAN CORPUSCULAR HEMOGLOBIN 31 pg (27-31); MEAN CORPUSCULAR HGB CONC 34 % (32-36); MEAN CORPUSCULAR VOLUME 93 fL (79.0-98.0); MONOCYTES % (AUTO) 9.4 % (1.7-9.3); NEUTROPHILS % (AUTO) 52.7 % (40.0-70.0); PLATELET COUNT (AUTO) 326 K/uL (130-430); POTASSIUM 3.4 mmol/L (3.5-5.1); RED CELL DISTRIBUTION WIDTH 12.8 % (9.0-15.0)
[2019-01-21 22:03] LABS: EOSINOPHILS # (AUTO) 0.1 K/uL (0.0-0.4); LYMPHOCYTES # (AUTO) 2.4 K/uL (1.0-5.5); LYMPHOCYTES % (AUTO) 36.6 % (20.5-51.5); MONOCYTES # (AUTO) 0.6 K/uL (0.0-1.0); NEUTROPHILS # (AUTO) 3.4 K/uL (1.8-7.7)
[2019-01-21 22:06] LABS: ALBUMIN 3.7 g/dL (3.4-4.8); TOTAL BILIRUBIN 0.4 mg/dL (0.0-1.0)
[2019-01-21] MEDS ORDERED: KETOROLAC TROMETHAMINE 30 MG VIAL IVP ONE (23:15)
[2019-01-21] MEDS ORDERED: CYCL-10 PO (23:43)
[2019-01-21] MEDS ORDERED: AMIT10TA6 PO (23:43)
[2019-01-21] MEDS ORDERED: ALPR0.5T PO (23:43)
[2019-01-22 00:47] VITALS: BP_SYST 125
[2019-01-22] MEDS: D5NS 1,000 ML IV SCH ×3 (01:01→22:40)
[2019-01-22] MEDS: MORPHINE 4 MG/ML INJ. SYRINGE IVP PRN ×5 (03:39→22:41)
[2019-01-22 06:59] VITALS: BP_SYST 128
[2019-01-22 08:00] VITALS: BP_SYST 95
[2019-01-22 13:02] VITALS: BP_SYST 105
[2019-01-22 16:47] VITALS: BP_SYST 106
[2019-01-22 20:37] VITALS: BP_SYST 124
[2019-01-22] MEDS: ONDANSETRON HCL 4 MG/2 ML VIAL IVP PRN (22:41)
[2019-01-23 03:26] VITALS: BP_SYST 107
[2019-01-23 05:07] LABS: BILIRUBIN,URINE NEGATIVE (NEGATIVE); BLOOD, URINE NEGATIVE (NEGATIVE); CLARITY/URINE CLEAR (CLEAR); COLOR,URINE YELLOW (YELLOW); GLUCOSE,URINE NEGATIVE (NEGATIVE); KETONES,URINE NEGATIVE (NEGATIVE); LEUKOCYTE ESTERASE ,URINE NEGATIVE (NEGATIVE); NITRITE, URINE NEGATIVE (NEGATIVE); PROTEIN URINE NEGATIVE (NEGATIVE); UROBILINOGEN,URINE 0.2 (0.2-1.0)
[2019-01-23 07:46] LABS: ALBUMIN 2.8 g/dL (3.4-4.8); CALCIUM 8.4 mg/dL (8.4-11.0); CREATININE 0.72 mg/dL (0.55-1.30); POTASSIUM 3.8 mmol/L (3.5-5.1); TOTAL BILIRUBIN 0.4 mg/dL (0.0-1.0)
[2019-01-23 07:58] VITALS: BP_SYST 105
[2019-01-23] MEDS: MORPHINE 4 MG/ML INJ. SYRINGE IVP PRN (08:09)
[2019-01-23] MEDS: ONDANSETRON HCL 4 MG/2 ML VIAL IVP PRN (08:10)
[2019-01-23 08:51] LABS: HEMATOCRIT 34.7 % (36-48); HEMOGLOBIN 11.7 g/dL (12.0-16.0); MEAN CORPUSCULAR HEMOGLOBIN 32 pg (27-31); MEAN CORPUSCULAR VOLUME 93 fL (79.0-98.0); RED BLOOD CELL COUNT(AUTO) 3.72 MIL/uL (4.2-6.2); WHITE BLOOD COUNT (AUTO) 6.1 K/uL (4.8-10.8)
[2019-01-23 08:52] LABS: BASOPHILS % (AUTO) 0.4 % (0.0-2.0); EOSINOPHILS # (AUTO) 0.1 K/uL (0.0-0.4); EOSINOPHILS % (AUTO) 1.2 % (0.0-4.0); LYMPHOCYTES % (AUTO) 32.3 % (20.5-51.5); MEAN CORPUSCULAR HGB CONC 34 % (32-36); MONOCYTES # (AUTO) 0.6 K/uL (0.0-1.0); MONOCYTES % (AUTO) 9.5 % (1.7-9.3); NEUTROPHILS # (AUTO) 3.4 K/uL (1.8-7.7); NEUTROPHILS % (AUTO) 56.6 % (40.0-70.0); PLATELET COUNT (AUTO) 283 K/uL (130-430); RED CELL DISTRIBUTION WIDTH 12.9 % (9.0-15.0)
[2019-01-23 10:33] VITALS: BP_SYST 108
== END 2019-01-23 11:32 | disposition home or self-care (01) | DRG 532 ==
LOC: SED 20:56 → SMU 01-22 00:15
PROVIDERS: ADMIT Internal Medicine Hospice and Palliative Medicine; ATTEND Internal Medicine Hospice and Palliative Medicine
DX: N83.202 Unspecified ovarian cyst, left side (principal); F41.9 Anxiety disorder, unspecified; M79.7 Fibromyalgia; J45.909 Unspecified asthma, uncomplicated; Z85.41 Personal history of malignant neoplasm of cervix uteri; Z90.710 Acquired absence of both cervix and uterus; Z90.49 Acquired absence of other specified parts of digestive tract
CPT/HCPCS: 36415; 80053; 81000-TC; 81003; 83605; 83690-TC; 84702-TC; 85025; 87040-TC; 96361; 96374; 96375; 96376; 99285; J1200; J1885; J2270; J2405; J7030; J7042; Q9967

== ENCOUNTER 2019-03-21 10:45 | Emergency (ER) | payer MEDICAID ==
[~2019-03-21] VITALS: Ht 160 cm; Wt 90.7 kg
[~2019-03-21 10:45] MED LIST changes: +AMIT10TA6 PO; +CYCL-10 PO
[2019-03-21 10:50] VITALS: BP_SYST 119
[2019-03-21] MEDS ORDERED: NACL 0.9% 1,000 ML IV ONE (11:13)
[2019-03-21 11:24] LABS: BILIRUBIN,URINE NEGATIVE (NEGATIVE); BLOOD, URINE 1+ (NEGATIVE); CLARITY/URINE CLEAR (CLEAR); COLOR,URINE YELLOW (YELLOW); GLUCOSE,URINE NEGATIVE (NEGATIVE); KETONES,URINE NEGATIVE (NEGATIVE); LEUKOCYTE ESTERASE ,URINE TRACE (NEGATIVE); NITRITE, URINE NEGATIVE (NEGATIVE); PROTEIN URINE TRACE (NEGATIVE); UROBILINOGEN,URINE 0.2 (0.2-1.0)
[2019-03-21 11:32] LABS: BASOPHILS % (AUTO) 0.4 % (0.0-2.0); EOSINOPHILS % (AUTO) 0.3 % (0.0-4.0); HEMATOCRIT 38.1 % (36-48); LYMPHOCYTES # (AUTO) 2.5 K/uL (1.0-5.5); LYMPHOCYTES % (AUTO) 31.1 % (20.5-51.5); MEAN CORPUSCULAR HEMOGLOBIN 31 pg (27-31); MEAN CORPUSCULAR HGB CONC 34 % (32-36); MEAN CORPUSCULAR VOLUME 92 fL (79.0-98.0); MONOCYTES # (AUTO) 0.7 K/uL (0.0-1.0); MONOCYTES % (AUTO) 8.2 % (1.7-9.3); NEUTROPHILS # (AUTO) 4.8 K/uL (1.8-7.7); PLATELET COUNT (AUTO) 346 K/uL (130-430); RED BLOOD CELL COUNT(AUTO) 4.14 MIL/uL (4.2-6.2); RED CELL DISTRIBUTION WIDTH 13.2 % (9.0-15.0)
[2019-03-21 11:37] LABS: BACTERIA,URINE FEW /HPF (None Seen); MUCUS,URINE 1+ /LPF (None Seen)
[2019-03-21 12:00] LABS: CALCIUM 8.6 mg/dL (8.4-11.0); CREATININE 0.7 mg/dL (0.55-1.30); POTASSIUM 3.8 mmol/L (3.5-5.1)
[2019-03-21 12:06] LABS: ALBUMIN 3.4 g/dL (3.4-4.8); TOTAL BILIRUBIN 0.2 mg/dL (0.0-1.0)
[2019-03-21] MEDS ORDERED: MORPHINE 4 MG/ML INJ. SYRINGE IVP ONE ×3 (12:30→15:45)
[2019-03-21] MEDS ORDERED: cefTRIAXone 1 GM in D5W 50 ML IV ONE (12:30)
[2019-03-21] MEDS ORDERED: VANCOMYCIN HCL 1,000 MG in NS 250 ML IV ONE (12:45)
[2019-03-21] MEDS ORDERED: cefTRIAXone 1 GM VIAL ONE ×2 (13:00→13:03)
[2019-03-21] MEDS ORDERED: KETOROLAC TROMETHAMINE 30 MG VIAL IVP ONE (14:00)
[2019-03-21 16:25] VITALS: BP_SYST 120
== END 2019-03-21 16:25 | disposition home or self-care (01) ==
LOC: SED 10:45
DX: N83.201 Unspecified ovarian cyst, right side (principal); J45.909 Unspecified asthma, uncomplicated; F41.9 Anxiety disorder, unspecified; M79.7 Fibromyalgia; Z85.41 Personal history of malignant neoplasm of cervix uteri; Z90.710 Acquired absence of both cervix and uterus; Z79.899 Other long term (current) drug therapy
CPT/HCPCS: 36415; 74176; 76830; 76857; 80053; 81000; 83690; 85025; 87040; 87086; 96365; 96375; 96376; 99284; J0696; J1885; J2270; J7030

== ENCOUNTER 2019-04-12 08:59 | Emergency (ER) | payer MEDICAID ==
[~2019-04-12] VITALS: Ht 160 cm; Wt 92.5 kg
[2019-04-12 09:00] VITALS: BP_SYST 133
--- NOTE | 2019-04-12 09:00 | NUR ---
BROUGHT BACK TO BED #8 AND TRIAGED. REPORT GIVEN TO DWIGHT
--- NOTE | 2019-04-12 09:20 | NUR ---
Pt presents to ED c/o pelvic pain and flank pain since this AM.
--- NOTE | 2019-04-12 09:31 | NUR ---
ER at bedside examining patient.
[2019-04-12] MEDS ORDERED: KETOROLAC TROMETHAMINE 60 MG/2 ML VIAL IM ONE (09:45)
[2019-04-12 10:11] LABS: BASOPHILS % (AUTO) 0.4 % (0.0-2.0); EOSINOPHILS # (AUTO) 0.1 K/uL (0.0-0.4); EOSINOPHILS % (AUTO) 0.7 % (0.0-4.0); HEMOGLOBIN 12.1 g/dL (12.0-16.0); MEAN CORPUSCULAR HEMOGLOBIN 31 pg (27-31); MEAN CORPUSCULAR HGB CONC 34 % (32-36); MEAN CORPUSCULAR VOLUME 93 fL (79.0-98.0); MONOCYTES # (AUTO) 0.6 K/uL (0.0-1.0); MONOCYTES % (AUTO) 7.3 % (1.7-9.3); NEUTROPHILS # (AUTO) 4.3 K/uL (1.8-7.7); NEUTROPHILS % (AUTO) 53.6 % (40.0-70.0); PLATELET COUNT (AUTO) 304 K/uL (130-430); RED BLOOD CELL COUNT(AUTO) 3.88 MIL/uL (4.2-6.2)
[2019-04-12 10:21] LABS: CALCIUM 8.4 mg/dL (8.4-11.0); CREATININE 0.7 mg/dL (0.55-1.30); POTASSIUM 3.7 mmol/L (3.5-5.1)
[2019-04-12 10:26] LABS: ALBUMIN 3.2 g/dL (3.4-4.8); TOTAL BILIRUBIN 0.4 mg/dL (0.0-1.0)
--- NOTE | 2019-04-12 10:35 | NUR ---
Patient transported to radiology via gurney, accompanied by rad staff.
--- NOTE | 2019-04-12 10:45 | NUR ---
Returned from radiology, back to [facility].
--- NOTE | 2019-04-12 11:31 | NUR ---
Patient given written and verbal discharge instructions and verbalizes understanding. ER MD Antoine discussed with patient the results and treatment provided. Patient in stable condition. ID arm band removed. IV catheter removed intact and dressing applied, no active bleeding. Rx of Lactulose given. Patient educated on pain management and to follow up with PMD. Pain Scale 0. Opportunity for questions provided and answered. Medication side effect fact sheet provided.
[2019-04-12 11:32] VITALS: BP_SYST 138
== END 2019-04-12 11:32 | disposition home or self-care (01) ==
LOC: SED 08:59
DX: K59.00 Constipation, unspecified (principal); J45.909 Unspecified asthma, uncomplicated; F41.9 Anxiety disorder, unspecified; M79.7 Fibromyalgia; Z85.41 Personal history of malignant neoplasm of cervix uteri; Z79.899 Other long term (current) drug therapy
CPT/HCPCS: 36415; 74021; 80053; 81002; 83690; 85025; 96372; 99284; J1885

== ENCOUNTER 2019-05-04 20:31 | Emergency (ER) | payer MEDICAID ==
[~2019-05-04] VITALS: Ht 160 cm; Wt 95.3 kg
[2019-05-04] MEDS ORDERED: NACL 0.9% 1,000 ML IV ONE (20:35)
[2019-05-04 20:38] VITALS: BP_SYST 120
[2019-05-04] MEDS ORDERED: MORPHINE 4 MG/ML INJ. SYRINGE IVP ONE ×2 (20:45→22:15)
[2019-05-04] MEDS ORDERED: ONDANSETRON HCL 4 MG/2 ML VIAL IVP ONE (20:45)
[2019-05-04 21:01] LABS: BASOPHILS % (AUTO) 0.4 % (0.0-2.0); EOSINOPHILS # (AUTO) 0.1 K/uL (0.0-0.4); EOSINOPHILS % (AUTO) 1.1 % (0.0-4.0); HEMATOCRIT 37.7 % (36-48); HEMOGLOBIN 12.7 g/dL (12.0-16.0); LYMPHOCYTES # (AUTO) 1.9 K/uL (1.0-5.5); LYMPHOCYTES % (AUTO) 34.6 % (20.5-51.5); MEAN CORPUSCULAR HEMOGLOBIN 32 pg (27-31); MEAN CORPUSCULAR HGB CONC 34 % (32-36); MEAN CORPUSCULAR VOLUME 94 fL (79.0-98.0); MONOCYTES # (AUTO) 0.6 K/uL (0.0-1.0); MONOCYTES % (AUTO) 11.6 % (1.7-9.3); NEUTROPHILS # (AUTO) 2.9 K/uL (1.8-7.7); NEUTROPHILS % (AUTO) 52.3 % (40.0-70.0); PLATELET COUNT (AUTO) 324 K/uL (130-430); RED BLOOD CELL COUNT(AUTO) 4.03 MIL/uL (4.2-6.2); RED CELL DISTRIBUTION WIDTH 12.8 % (9.0-15.0); WHITE BLOOD COUNT (AUTO) 5.5 K/uL (4.8-10.8)
[2019-05-04 21:13] LABS: CALCIUM 8.9 mg/dL (8.4-11.0); CREATININE 0.64 mg/dL (0.55-1.30); POTASSIUM 3.9 mmol/L (3.5-5.1)
[2019-05-04 21:16] LABS: INR 0.9 (0.8-1.2); PROTHROMBIN TIME 9.7 SECS (9.5-12.5)
[2019-05-04 21:18] LABS: ALBUMIN 3.2 g/dL (3.4-4.8); TOTAL BILIRUBIN 0.2 mg/dL (0.0-1.0)
[2019-05-04 21:34] LABS: BILIRUBIN,URINE NEGATIVE (NEGATIVE); BLOOD, URINE NEGATIVE (NEGATIVE); CLARITY/URINE CLEAR (CLEAR); COLOR,URINE YELLOW (YELLOW); GLUCOSE,URINE NEGATIVE (NEGATIVE); KETONES,URINE TRACE (NEGATIVE); LEUKOCYTE ESTERASE ,URINE NEGATIVE (NEGATIVE); NITRITE, URINE NEGATIVE (NEGATIVE); PROTEIN URINE NEGATIVE (NEGATIVE); UROBILINOGEN,URINE 0.2 (0.2-1.0)
[2019-05-04] MEDS ORDERED: metroNIDAZOLE 500 MG TABLET PO ONE (22:30)
[2019-05-04] MEDS ORDERED: CIPROFLOXACIN HCL 500 MG TABLET PO ONE (22:30)
[2019-05-04 22:55] VITALS: BP_SYST 106
== END 2019-05-04 22:55 | disposition home or self-care (01) ==
LOC: SED 20:31
DX: R10.32 Left lower quadrant pain (principal); F41.9 Anxiety disorder, unspecified; M79.7 Fibromyalgia; Z87.19 Personal history of other diseases of the digestive system; Z93.3 Colostomy status; J45.909 Unspecified asthma, uncomplicated; Z85.41 Personal history of malignant neoplasm of cervix uteri; Z79.899 Other long term (current) drug therapy
CPT/HCPCS: 36415; 71045; 80053; 81003; 82150; 82550; 83605; 83690; 85025; 85610; 85730; 87040; 93005; 96361; 96374; 96375; 96376; 99284; J2270; J2405; J7030

== ENCOUNTER 2019-05-06 23:24 | Emergency (ER) | payer MEDICAID ==
[~2019-05-06] VITALS: Ht 160 cm; Wt 95.3 kg
[2019-05-06 23:30] VITALS: BP_SYST 112
--- NOTE | 2019-05-06 23:35 | NUR ---
Patient to ER bed 3 to gown for evaluation. Side rails up. Report given to PORTIA INTERIANO.
--- NOTE | 2019-05-06 23:40 | NUR ---
Pt complains of abdominal pain for the past week. Pt states she was seen in ED a few days ago for same problem. Pt reports diarrhea and vomiting. No fever. No other injuries/complaints per patient or noted.
--- NOTE | 2019-05-06 23:52 | NUR ---
CHALO Leon at bedside examining patient.
[2019-05-07] MEDS ORDERED: LACTULOSE 20 GM/30 ML UDC PO ONE (00:45)
[2019-05-07] MEDS ORDERED: KETOROLAC TROMETHAMINE 15 MG VIAL IM ONE (00:45)
--- NOTE | 2019-05-07 01:02 | NUR ---
Per Dr. Leon, hold off on the lactulose until CT results come back.
[2019-05-07 01:31] VITALS: BP_SYST 118
--- NOTE | 2019-05-07 01:31 | NUR ---
Patient given written and verbal discharge instructions and verbalizes understanding. ER MD discussed with patient the results and treatment provided. Patient in stable condition. ID arm band removed.IV catheter removed intact and dressing applied, no active bleeding. Rx of Lactulose given. Patient educated on pain management and to follow up with PMD. Pain Scale 0. Opportunity for questions provided and answered. Medication side effect fact sheet provided.
== END 2019-05-07 01:31 | disposition home or self-care (01) ==
LOC: SED 23:24
DX: K59.00 Constipation, unspecified (principal); M79.7 Fibromyalgia; F41.9 Anxiety disorder, unspecified; J45.909 Unspecified asthma, uncomplicated; Z85.41 Personal history of malignant neoplasm of cervix uteri; Z79.899 Other long term (current) drug therapy
CPT/HCPCS: 74176; 96372; 99284; J1885

== ENCOUNTER 2019-05-08 18:32 | Emergency (ER) | payer MEDICAID ==
[~2019-05-08] VITALS: Ht 160 cm; Wt 95.3 kg
[2019-05-08 18:37] VITALS: BP_SYST 121
[2019-05-08] MEDS ORDERED: NACL 0.9% 1,000 ML IV ONE (18:50)
[2019-05-08] MEDS ORDERED: KETOROLAC TROMETHAMINE 30 MG VIAL IVP ONE (19:00)
[2019-05-08] MEDS ORDERED: ONDANSETRON HCL 4 MG/2 ML VIAL IVP ONE (19:00)
[2019-05-08] MEDS ORDERED: MORPHINE 4 MG/ML INJ. SYRINGE IVP ONE (19:00)
[2019-05-08 19:15] LABS: BILIRUBIN,URINE NEGATIVE (NEGATIVE); BLOOD, URINE NEGATIVE (NEGATIVE); CLARITY/URINE SL HAZY (CLEAR); COLOR,URINE YELLOW (YELLOW); GLUCOSE,URINE NEGATIVE (NEGATIVE); KETONES,URINE NEGATIVE (NEGATIVE); LEUKOCYTE ESTERASE ,URINE NEGATIVE (NEGATIVE); NITRITE, URINE NEGATIVE (NEGATIVE); PH,URINE 7.5 (5.0-8.0); PROTEIN URINE NEGATIVE (NEGATIVE); UROBILINOGEN,URINE 0.2 (0.2-1.0)
[2019-05-08 19:24] LABS: EOSINOPHILS # (AUTO) 0.1 K/uL (0.0-0.4); EOSINOPHILS % (AUTO) 1.3 % (0.0-4.0); LYMPHOCYTES # (AUTO) 1.9 K/uL (1.0-5.5); MEAN CORPUSCULAR HEMOGLOBIN 32 pg (27-31); MONOCYTES # (AUTO) 0.6 K/uL (0.0-1.0); NEUTROPHILS # (AUTO) 3.3 K/uL (1.8-7.7); NEUTROPHILS % (AUTO) 55.7 % (40.0-70.0); RED BLOOD CELL COUNT(AUTO) 4.23 MIL/uL (4.2-6.2); WHITE BLOOD COUNT (AUTO) 5.9 K/uL (4.8-10.8)
[2019-05-08 19:29] LABS: BASOPHILS % (AUTO) 0.4 % (0.0-2.0); HEMATOCRIT 39.8 % (36-48); HEMOGLOBIN 13.4 g/dL (12.0-16.0); LYMPHOCYTES % (AUTO) 32.3 % (20.5-51.5); MEAN CORPUSCULAR HGB CONC 34 % (32-36); MEAN CORPUSCULAR VOLUME 94 fL (79.0-98.0); MONOCYTES % (AUTO) 10.3 % (1.7-9.3); PLATELET COUNT (AUTO) 326 K/uL (130-430)
[2019-05-08 19:29] LABS: BENZODIAZEPINE, URINE POSITIVE (NEG <=150); OPIATE, URINE POSITIVE (NEG <=100); UR TRICYCLIC ANTIDEPRESSANTS POSITIVE (NEG <=300)
[2019-05-08 19:37] LABS: CREATININE 0.77 mg/dL (0.55-1.30); POTASSIUM 3.7 mmol/L (3.5-5.1)
[2019-05-08 19:42] LABS: ALBUMIN 3.6 g/dL (3.4-4.8); TOTAL BILIRUBIN 0.3 mg/dL (0.0-1.0)
[2019-05-08] MEDS ORDERED: IOHEXOL 100 ML IV ONE (19:42)
[2019-05-08 19:49] LABS: BARBITURATE, URINE NEGATIVE (NEG <=200); CANNABINOID, URINE NEGATIVE (NEG <=50); COCAINE, URINE NEGATIVE (NEG <=150); METHAMPHETAMINES SCREEN,URINE NEGATIVE (NEG <=500); PHENCYCLIDINE SCREEN,URINE NEGATIVE (NEG <=25); URINE AMPHETAMINE NEGATIVE (NEG <=500); URINE METHADONE NEGATIVE (NEG <=200); URINE OXYCODONE SCREEN NEGATIVE (NEG <=100); URINE PROPOXYPHENE SCREEN NEGATIVE (NEG <=300)
[2019-05-08] MEDS ORDERED: ACETAMINOPHEN 500 MG TABLET PO ONE (20:30)
[2019-05-08] MEDS ORDERED: MORPHINE 2 MG/ML INJ. SYRINGE IVP ONE (21:00)
[2019-05-08 22:13] VITALS: BP_SYST 126
== END 2019-05-08 22:13 | disposition home or self-care (01) ==
LOC: SED 18:32
DX: N83.202 Unspecified ovarian cyst, left side (principal); F41.9 Anxiety disorder, unspecified; M79.7 Fibromyalgia; J45.909 Unspecified asthma, uncomplicated; Z85.41 Personal history of malignant neoplasm of cervix uteri; Z79.899 Other long term (current) drug therapy
CPT/HCPCS: 36415; 74177; 80053; 80307; 81003; 83690; 85025; 96361; 96374; 96375; 96376; 99284; J1885; J2270 ×2; J2405; J7030; Q9967

== ENCOUNTER 2019-06-06 10:10 | Emergency (ER) | payer MEDICAID ==
[~2019-06-06] VITALS: Ht 160 cm; Wt 95.3 kg
[2019-06-06] MEDS ORDERED: NACL 0.9% 1,000 ML IV ONE (10:16)
[2019-06-06 10:21] VITALS: BP_SYST 126
[2019-06-06] MEDS ORDERED: ONDANSETRON HCL 4 MG/2 ML VIAL IVP ONE (10:30)
[2019-06-06] MEDS ORDERED: MORPHINE 4 MG/ML INJ. SYRINGE IVP ONE ×2 (10:30→12:45)
[2019-06-06 11:00] LABS: BASOPHILS % (AUTO) 0.4 % (0.0-2.0); EOSINOPHILS % (AUTO) 0.6 % (0.0-4.0); HEMATOCRIT 40.3 % (36-48); HEMOGLOBIN 13.8 g/dL (12.0-16.0); LYMPHOCYTES # (AUTO) 1.9 K/uL (1.0-5.5); LYMPHOCYTES % (AUTO) 37.1 % (20.5-51.5); MEAN CORPUSCULAR HEMOGLOBIN 32 pg (27-31); MEAN CORPUSCULAR HGB CONC 34 % (32-36); MEAN CORPUSCULAR VOLUME 93 fL (79.0-98.0); MONOCYTES # (AUTO) 0.4 K/uL (0.0-1.0); MONOCYTES % (AUTO) 8.7 % (1.7-9.3); NEUTROPHILS # (AUTO) 2.7 K/uL (1.8-7.7); NEUTROPHILS % (AUTO) 53.2 % (40.0-70.0); PLATELET COUNT (AUTO) 315 K/uL (130-430); RED BLOOD CELL COUNT(AUTO) 4.33 MIL/uL (4.2-6.2); RED CELL DISTRIBUTION WIDTH 13.1 % (9.0-15.0); WHITE BLOOD COUNT (AUTO) 5.1 K/uL (4.8-10.8)
[2019-06-06 11:06] LABS: BILIRUBIN,URINE NEGATIVE (NEGATIVE); BLOOD, URINE TRACE (NEGATIVE); CLARITY/URINE SL CLOUDY (CLEAR); COLOR,URINE YELLOW (YELLOW); GLUCOSE,URINE NEGATIVE (NEGATIVE); KETONES,URINE NEGATIVE (NEGATIVE); LEUKOCYTE ESTERASE ,URINE TRACE (NEGATIVE); NITRITE, URINE NEGATIVE (NEGATIVE); PH,URINE 6.5 (5.0-8.0); PROTEIN URINE NEGATIVE (NEGATIVE); UROBILINOGEN,URINE 0.2 (0.2-1.0)
[2019-06-06 11:10] LABS: BACTERIA,URINE FEW /HPF (None Seen)
[2019-06-06 11:10] LABS: INR 0.9 (0.8-1.2); PROTHROMBIN TIME 9.6 SECS (9.5-12.5)
[2019-06-06 11:11] LABS: ANION GAP 9 (5-15); CALCIUM 8.6 mg/dL (8.4-11.0); CHLORIDE 100 mmol/L (98-107); CREATININE 0.72 mg/dL (0.55-1.30); GLUCOSE 85 mg/dL (70-99); POTASSIUM 3.6 mmol/L (3.5-5.1); SODIUM SERUM 137 mmol/L (136-145); UREA NITROGEN, BLOOD 17 mg/dL (8-21)
[2019-06-06 11:11] LABS: BARBITURATE, URINE NEGATIVE (NEG <=200); BENZODIAZEPINE, URINE POSITIVE (NEG <=150); CANNABINOID, URINE NEGATIVE (NEG <=50); COCAINE, URINE NEGATIVE (NEG <=150); METHAMPHETAMINES SCREEN,URINE NEGATIVE (NEG <=500); OPIATE, URINE NEGATIVE (NEG <=100); PHENCYCLIDINE SCREEN,URINE NEGATIVE (NEG <=25); UR TRICYCLIC ANTIDEPRESSANTS POSITIVE (NEG <=300); URINE AMPHETAMINE NEGATIVE (NEG <=500); URINE METHADONE NEGATIVE (NEG <=200); URINE OXYCODONE SCREEN NEGATIVE (NEG <=100); URINE PROPOXYPHENE SCREEN NEGATIVE (NEG <=300)
[2019-06-06 11:13] LABS: GFR AFRICAN AMERICAN 119 mL/min (>90)
[2019-06-06 11:16] LABS: ALANINE AMINOTRANSFERASE 31 U/L (12-78); ALBUMIN 3.8 g/dL (3.4-4.8); AMYLASE 61 U/L (0-100); ASPARTATE AMINOTRANSFERASE 23 U/L (10-37); LIPASE 97 U/L (73-393); TOTAL BILIRUBIN 0.4 mg/dL (0.0-1.0)
[2019-06-06 11:18] LABS: ACETAMINOPHEN < 1 ug/mL (1-30); ALCOHOL, BLOOD < 3 mg/dL (<10)
[2019-06-06 13:36] VITALS: BP_SYST 116
== END 2019-06-06 13:36 | disposition home or self-care (01) ==
LOC: SED 10:10
DX: N83.201 Unspecified ovarian cyst, right side (principal); R11.2 Nausea with vomiting, unspecified; J45.909 Unspecified asthma, uncomplicated; F41.9 Anxiety disorder, unspecified; M79.7 Fibromyalgia; Z90.710 Acquired absence of both cervix and uterus; Z79.899 Other long term (current) drug therapy; Z85.41 Personal history of malignant neoplasm of cervix uteri
CPT/HCPCS: 36415; 74176; 80053; 80307; 81000; 81025; 82150; 82272; 83605; 83690; 85025; 85610; 85730; 87040; 96361; 96374; 96375; 96376; 99284; G0480; G0481; G0482; J2270; J2405; J7030

== ENCOUNTER 2019-06-19 00:28 | Emergency (ER) | payer MEDICAID ==
[~2019-06-19] VITALS: Ht 160 cm; Wt 93.9 kg
[2019-06-19 00:34] VITALS: BP_SYST 122
--- NOTE | 2019-06-19 00:45 | NUR ---
Patient to ER bed 5 to gown for evaluation. Side rails up. Report given to BRENNA INTERIANO.
[2019-06-19] MEDS ORDERED: KETOROLAC TROMETHAMINE 60 MG/2 ML VIAL IM ONE (01:00)
--- NOTE | 2019-06-19 01:00 | NUR ---
ER at bedside examining patient.
[2019-06-19] MEDS ORDERED: MORPHINE 4 MG/ML INJ. SYRINGE IM ONE (01:15)
[2019-06-19] MEDS ORDERED: ONDANSETRON 4 MG ODT TAB PO ONE (01:15)
--- NOTE | 2019-06-19 01:44 | NUR ---
patient AOx4 from home with complaint of abd paint 08/05 since last night. patient denies vomiting. patient states she has had this problem in the past and does not treat it with anything at home. patient is nontender to abd at this time. patient denies loose stool, painful urination or changes in eating habits. no other complatin or injury at this time.
[2019-06-19 01:59] VITALS: BP_SYST 122
--- NOTE | 2019-06-19 02:01 | NUR ---
Patient given written and verbal discharge instructions and verbalizes understanding. ER MD discussed with patient the results and treatment provided. Patient in stable condition. ID arm band removed. Rx of Zofran, Motrin, [place] given. Patient educated on pain management and to follow up with PMD. Pain Scale 0/10. Opportunity for questions provided and answered. Medication side effect fact sheet provided.
== END 2019-06-19 02:01 | disposition home or self-care (01) ==
LOC: SED 00:28
DX: M25.512 Pain in left shoulder (principal); R03.0 Elevated blood-pressure reading, without diagnosis of hypertension; F41.9 Anxiety disorder, unspecified; M79.7 Fibromyalgia; Z90.710 Acquired absence of both cervix and uterus; Z79.899 Other long term (current) drug therapy
CPT/HCPCS: 81002; 81025; 96372; 99283; J2270; Q0162

== ENCOUNTER 2019-06-20 02:31 | Emergency (ER) | payer MEDICAID ==
[~2019-06-20] VITALS: Ht 160 cm; Wt 93.9 kg
[2019-06-20 02:55] VITALS: BP_SYST 126
--- NOTE | 2019-06-20 03:00 | NUR ---
Pt placed to ER bed 06, to chava, report given to JAYDON Bourgeois.
--- NOTE | 2019-06-20 03:20 | NUR ---
Dr. Tello bedside for Pt eval
[2019-06-20 03:24] LABS: BASOPHILS % (AUTO) 0.5 % (0.0-2.0); EOSINOPHILS % (AUTO) 0.1 % (0.0-4.0); HEMATOCRIT 37.1 % (36-48); LYMPHOCYTES # (AUTO) 0.9 K/uL (1.0-5.5); LYMPHOCYTES % (AUTO) 9.1 % (20.5-51.5); MEAN CORPUSCULAR HEMOGLOBIN 32 pg (27-31); MEAN CORPUSCULAR HGB CONC 35 % (32-36); MEAN CORPUSCULAR VOLUME 93 fL (79.0-98.0); MONOCYTES # (AUTO) 0.5 K/uL (0.0-1.0); MONOCYTES % (AUTO) 5.5 % (1.7-9.3); NEUTROPHILS # (AUTO) 7.9 K/uL (1.8-7.7); NEUTROPHILS % (AUTO) 84.8 % (40.0-70.0); PLATELET COUNT (AUTO) 272 K/uL (130-430); RED BLOOD CELL COUNT(AUTO) 4.01 MIL/uL (4.2-6.2); RED CELL DISTRIBUTION WIDTH 13.1 % (9.0-15.0); WHITE BLOOD COUNT (AUTO) 9.4 K/uL (4.8-10.8)
--- NOTE | 2019-06-20 03:30 | NUR ---
Pt BIB family to ED C/O LLQ abdominal and diarrhea x 1 hour and Nausea and Vomiting since 2229. Pt tried self medicating without relief. No other complaints and or injuries noted. VSS no s/s of acute distress. Resting on gurney with rails up
[2019-06-20 03:35] LABS: CALCIUM 8.8 mg/dL (8.4-11.0); CREATININE 0.74 mg/dL (0.55-1.30); POTASSIUM 3.8 mmol/L (3.5-5.1)
[2019-06-20 03:40] LABS: ALBUMIN 3.4 g/dL (3.4-4.8); TOTAL BILIRUBIN 0.4 mg/dL (0.0-1.0)
[2019-06-20] MEDS ORDERED: NACL 0.9% 1,000 ML IV ONE (04:26)
[2019-06-20] MEDS ORDERED: KETOROLAC TROMETHAMINE 30 MG VIAL IVP ONE (04:30)
--- NOTE | 2019-06-20 04:49 | NUR ---
Pt to CT via stretcher in stable condition.
--- NOTE | 2019-06-20 04:55 | NUR ---
Pt returns from CT.
[2019-06-20 05:20] LABS: BILIRUBIN,URINE 1+ (NEGATIVE); BLOOD, URINE 1+ (NEGATIVE); CLARITY/URINE CLEAR (CLEAR); COLOR,URINE ORANGE (YELLOW); GLUCOSE,URINE NEGATIVE (NEGATIVE); KETONES,URINE 1+ (NEGATIVE); LEUKOCYTE ESTERASE ,URINE NEGATIVE (NEGATIVE); NITRITE, URINE NEGATIVE (NEGATIVE); PROTEIN URINE NEGATIVE (NEGATIVE); UROBILINOGEN,URINE 0.2 (0.2-1.0)
[2019-06-20 05:35] LABS: BACTERIA,URINE FEW /HPF (None Seen); WBC,URINE 0-3 /HPF (0-3)
--- NOTE | 2019-06-20 05:35 | NUR ---
# 22 gauge angiocath placed to RT Forearm. Use of asceptic technique. Opsite placed over site. Blood return noted. Blood for lab drawn from site. Flushed with 10 cc of normal saline. No evidence of infiltration noted. Patient tolerated well.
--- NOTE | 2019-06-20 06:34 | NUR ---
Patient given written and verbal discharge instructions and verbalizes understanding. ER MD discussed with patient the results and treatment provided. Patient in stable condition. ID arm band removed. IV catheter removed intact and dressing applied, no active bleeding. Rx of tramadol,reglan given. Patient educated on pain management and to follow up with PMD. Pain Scale 0/10. Opportunity for questions provided and answered. Medication side effect fact sheet provided.
[2019-06-20 06:35] VITALS: BP_SYST 120
== END 2019-06-20 06:35 | disposition home or self-care (01) ==
LOC: SED 02:31
DX: R10.32 Left lower quadrant pain (principal); R19.7 Diarrhea, unspecified; R11.2 Nausea with vomiting, unspecified; J45.909 Unspecified asthma, uncomplicated; Z79.899 Other long term (current) drug therapy
CPT/HCPCS: 36415; 74176; 80053; 81000; 81025; 85025; 96361; 96374; 99284; J1885; J7030

== ENCOUNTER 2019-08-27 07:18 | Emergency (ER) | payer MEDICAID ==
[~2019-08-27] VITALS: Ht 160 cm; Wt 84.8 kg
[2019-08-27] MEDS ORDERED: NACL 0.9% 1,000 ML IV ONE (08:30)
[2019-08-27] MEDS ORDERED: ONDANSETRON HCL 4 MG/2 ML VIAL IVP ONE (08:30)
[2019-08-27] MEDS ORDERED: MORPHINE 2 MG/ML INJ. SYRINGE IVP ONE ×2 (08:30→09:30)
--- NOTE | 2019-08-27 08:30 | NUR ---
Patient to ER bed 8 to gown for evaluation. Side rails up
[2019-08-27 08:39] LABS: BASOPHILS % (AUTO) 0.5 % (0.0-2.0); EOSINOPHILS # (AUTO) 0.1 K/uL (0.0-0.4); EOSINOPHILS % (AUTO) 1.1 % (0.0-4.0); HEMATOCRIT 38.8 % (36-48); HEMOGLOBIN 13.4 g/dL (12.0-16.0); LYMPHOCYTES % (AUTO) 35.2 % (20.5-51.5); MEAN CORPUSCULAR HEMOGLOBIN 32 pg (27-31); MEAN CORPUSCULAR HGB CONC 35 % (32-36); MEAN CORPUSCULAR VOLUME 92 fL (79.0-98.0); MONOCYTES # (AUTO) 0.4 K/uL (0.0-1.0); NEUTROPHILS # (AUTO) 3.3 K/uL (1.8-7.7); NEUTROPHILS % (AUTO) 56.2 % (40.0-70.0); PLATELET COUNT (AUTO) 346 K/uL (130-430); RED CELL DISTRIBUTION WIDTH 13.3 % (9.0-15.0); WHITE BLOOD COUNT (AUTO) 5.8 K/uL (4.8-10.8)
--- NOTE | 2019-08-27 08:40 | NUR ---
Patient transported to radiology via gurney, accompanied by froilan.
[2019-08-27 08:42] VITALS: BP_SYST 115
--- NOTE | 2019-08-27 08:50 | NUR ---
ER at bedside examining patient.
[2019-08-27 08:54] LABS: CALCIUM 9.3 mg/dL (8.4-11.0); CREATININE 0.72 mg/dL (0.55-1.30); POTASSIUM 3.8 mmol/L (3.5-5.1)
[2019-08-27 09:00] LABS: PROTHROMBIN TIME 9.9 SECS (9.5-12.5)
--- NOTE | 2019-08-27 09:00 | NUR ---
# 20 gauge angiocath placed to LAC. Use of asceptic technique. Opsite placed over site. Blood return noted. Blood for lab drawn from site. Flushed with 10 cc of normal saline. No evidence of infiltration noted. Patient tolerated well.
[2019-08-27 09:01] LABS: ALBUMIN 3.7 g/dL (3.4-4.8); TOTAL BILIRUBIN 0.4 mg/dL (0.0-1.0)
--- NOTE | 2019-08-27 09:23 | NUR ---
medicated the pt w/ Morphine per MD order
[2019-08-27 09:51] LABS: BILIRUBIN,URINE NEGATIVE (NEGATIVE); CLARITY/URINE CLEAR (CLEAR); COLOR,URINE YELLOW (YELLOW); GLUCOSE,URINE NEGATIVE (NEGATIVE); KETONES,URINE NEGATIVE (NEGATIVE); LEUKOCYTE ESTERASE ,URINE 2+ (NEGATIVE); NITRITE, URINE NEGATIVE (NEGATIVE); PROTEIN URINE NEGATIVE (NEGATIVE); UROBILINOGEN,URINE 0.2 (0.2-1.0)
[2019-08-27 09:54] LABS: BLOOD, URINE TRACE (NEGATIVE)
[2019-08-27 10:03] LABS: BACTERIA,URINE FEW /HPF (None Seen)
--- NOTE | 2019-08-27 11:00 | NUR ---
pt taken to US accompanied by tech
--- NOTE | 2019-08-27 11:57 | NUR ---
pt returned from US.
[2019-08-27] MEDS ORDERED: LORazepam 2 MG/ML VIAL IVP ONE (12:45)
--- NOTE | 2019-08-27 12:50 | NUR ---
medicated the pt w/ Moprphine per MD order.
--- NOTE | 2019-08-27 13:00 | NUR ---
pt reports feeling better
[2019-08-27 13:30] VITALS: BP_SYST 115
--- NOTE | 2019-08-27 13:30 | NUR ---
Patient given written and verbal discharge instructions and verbalizes understanding. ER MD discussed with patient the results and treatment provided. Patient in stable condition. ID arm band removed. IV catheter removed intact and dressing applied, no active bleeding. Rx of mineral oil given. Patient educated on pain management and to follow up with PMD. Pain Scale . Opportunity for questions provided and answered. Medication side effect fact sheet provided.
== END 2019-08-27 13:30 | disposition home or self-care (01) ==
LOC: SED 07:18
DX: K59.00 Constipation, unspecified (principal); N94.89 Other specified conditions associated with female genital organs and menstrual cycle; J45.909 Unspecified asthma, uncomplicated; Z79.899 Other long term (current) drug therapy; Z90.89 Acquired absence of other organs
CPT/HCPCS: 36415; 71045; 74176; 76830; 76857; 80053; 81000; 83605; 85025; 85610; 85730; 87040; 87086; 96374; 96375; 96376; 99284; J2270; J2405; J7030

== ENCOUNTER 2019-11-04 07:18 | Inpatient (IN) | payer MEDICAID ==
[~2019-11-04] VITALS: Ht 160 cm; Wt 97.5 kg
[2019-11-04 07:18] VITALS: BP_SYST 108
[2019-11-04] MEDS ORDERED: NACL 0.9% 1,000 ML IV ONE (07:51)
[2019-11-04] MEDS ORDERED: ASPIRIN 81 MG TAB.CHEW PO ONE (08:00)
[2019-11-04] MEDS ORDERED: ONDANSETRON HCL 4 MG/2 ML VIAL IVP ONE (08:00)
[2019-11-04] MEDS ORDERED: MORPHINE 4 MG/ML INJ. SYRINGE IVP ONE ×2 (08:00→11:30)
[2019-11-04 08:22] LABS: BASOPHILS % (AUTO) 0.5 % (0.0-2.0); EOSINOPHILS % (AUTO) 0.3 % (0.0-4.0); HEMATOCRIT 35.9 % (36-48); HEMOGLOBIN 12.3 g/dL (12.0-16.0); LYMPHOCYTES % (AUTO) 32.5 % (20.5-51.5); MEAN CORPUSCULAR HEMOGLOBIN 32 pg (27-31); MEAN CORPUSCULAR HGB CONC 34 % (32-36); MEAN CORPUSCULAR VOLUME 93 fL (79.0-98.0); MONOCYTES # (AUTO) 0.4 K/uL (0.0-1.0); MONOCYTES % (AUTO) 6.5 % (1.7-9.3); NEUTROPHILS # (AUTO) 3.8 K/uL (1.8-7.7); NEUTROPHILS % (AUTO) 60.2 % (40.0-70.0); PLATELET COUNT (AUTO) 286 K/uL (130-430); RED BLOOD CELL COUNT(AUTO) 3.86 MIL/uL (4.2-6.2); RED CELL DISTRIBUTION WIDTH 13.2 % (9.0-15.0); WHITE BLOOD COUNT (AUTO) 6.3 K/uL (4.8-10.8)
[2019-11-04 08:33] LABS: CALCIUM 8.7 mg/dL (8.4-11.0); CREATININE 0.55 mg/dL (0.55-1.30); POTASSIUM 3.7 mmol/L (3.5-5.1)
[2019-11-04 08:38] LABS: PROTHROMBIN TIME 9.9 SECS (9.5-12.5)
[2019-11-04 08:47] LABS: ALBUMIN 3.7 g/dL (3.4-4.8); TOTAL BILIRUBIN 0.3 mg/dL (0.0-1.0)
[2019-11-04 09:10] LABS: BILIRUBIN,URINE NEGATIVE (NEGATIVE); CLARITY/URINE CLEAR (CLEAR); COLOR,URINE YELLOW (YELLOW); GLUCOSE,URINE NEGATIVE (NEGATIVE); KETONES,URINE NEGATIVE (NEGATIVE); LEUKOCYTE ESTERASE ,URINE TRACE (NEGATIVE); NITRITE, URINE NEGATIVE (NEGATIVE); PROTEIN URINE NEGATIVE (NEGATIVE); UROBILINOGEN,URINE 0.2 (0.2-1.0)
[2019-11-04 09:16] LABS: BLOOD, URINE TRACE (NEGATIVE)
[2019-11-04 09:21] LABS: BACTERIA,URINE RARE /HPF (None Seen)
[2019-11-04] MEDS: D5/0.45 NS 1,000 ML IV SCH ×2 (12:29→22:28)
[2019-11-04] MEDS: HYDROmorphone 2 MG/ML VIAL IVP PRN ×2 (15:13→20:35)
[2019-11-04] MEDS: ONDANSETRON HCL 4 MG/2 ML VIAL IVP SCH ×3 (15:15→23:39)
[2019-11-04] MEDS ORDERED: LEVE500T9 PO (15:39)
[2019-11-04] MEDS ORDERED: GABA-776 PO (15:39)
[2019-11-04] MEDS ORDERED: CARI350T27 PO (15:39)
[2019-11-04] MEDS ORDERED: LISI1TAB28 PO (15:39)
[2019-11-04 15:57] VITALS: BP_SYST 116
[2019-11-04 20:36] VITALS: BP_SYST 103
[2019-11-04] MEDS ORDERED: KETOROLAC TROMETHAMINE 30 MG VIAL IVP PRN (20:45)
[2019-11-04] MEDS ORDERED: CIPROFLOXACIN LACT 200 MG/D5W 100 ML IV SCH (21:00)
[2019-11-05 00:06] VITALS: BP_SYST 113
[2019-11-05] MEDS ORDERED: metroNIDAZOLE 500 mg/NS 200 ML IV ONE (00:45)
[2019-11-05] MEDS ORDERED: CIPROFLOXACIN LACT 400 MG/D5W 200 ML IV ONE (00:45)
[2019-11-05] MEDS: HYDROmorphone 2 MG/ML VIAL IVP PRN ×4 (01:17→13:06)
[2019-11-05] MEDS: metroNIDAZOLE 500 mg/NS 100 ML IV SCH ×4 (01:20→21:29)
[2019-11-05] MEDS: ONDANSETRON HCL 4 MG/2 ML VIAL IVP SCH ×6 (03:43→22:01)
[2019-11-05 08:26] VITALS: BP_SYST 116
[2019-11-05] MEDS ORDERED: DIPHENHYDRAMINE INJ 50 MG/ML VIAL IVP ONE (09:15)
[2019-11-05] MEDS ORDERED: DIPHENHYDRAMINE HCL 50 MG CAPSULE PO PRN (09:15)
[2019-11-05] MEDS: D5/0.45 NS 1,000 ML IV SCH (09:17)
[2019-11-05 12:25] VITALS: BP_SYST 109
[2019-11-05 16:15] VITALS: BP_SYST 99
[2019-11-05] MEDS ORDERED: TEMAZEPAM 15 MG CAPSULE PO PRN (20:00)
[2019-11-05 20:33] VITALS: BP_SYST 121
[2019-11-05] MEDS: LORazepam 1 MG TABLET PO PRN (20:35)
[2019-11-05] MEDS: CIPROFLOXACIN LACT 200 MG/D5W 100 ML IV SCH (20:36)
[2019-11-06 00:14] VITALS: BP_SYST 101
[2019-11-06] MEDS: ONDANSETRON HCL 4 MG/2 ML VIAL IVP SCH ×2 (03:00→06:23)
[2019-11-06] MEDS: metroNIDAZOLE 500 mg/NS 100 ML IV SCH (05:16)
[2019-11-06 08:00] VITALS: BP_SYST 104
[2019-11-06] MEDS: LORazepam 1 MG TABLET PO PRN (09:57)
[2019-11-06] MEDS: CIPROFLOXACIN LACT 200 MG/D5W 100 ML IV SCH (09:57)
[2019-11-06 12:13] VITALS: BP_SYST 105
== END 2019-11-06 12:00 | disposition home or self-care (01) | DRG 244 ==
LOC: SED 07:18 → SMU 11:23
PROVIDERS: ADMIT Specialist; ATTEND Specialist
DX: K57.92 Diverticulitis of intestine, part unspecified, without perforation or abscess without bleeding (principal); R65.10 Systemic inflammatory response syndrome (SIRS) of non-infectious origin without acute organ dysfunction; E87.1 Hypo-osmolality and hyponatremia; F17.210 Nicotine dependence, cigarettes, uncomplicated; N83.292 Other ovarian cyst, left side; I10 Essential (primary) hypertension; M79.7 Fibromyalgia; F41.9 Anxiety disorder, unspecified; Z85.41 Personal history of malignant neoplasm of cervix uteri; Z90.49 Acquired absence of other specified parts of digestive tract; Z90.710 Acquired absence of both cervix and uterus; Z93.3 Colostomy status; Z79.899 Other long term (current) drug therapy; Z80.8 Family history of malignant neoplasm of other organs or systems; Z82.49 Family history of ischemic heart disease and other diseases of the circulatory system
CPT/HCPCS: 36415; 71045; 80053; 81000-TC; 82550-TC; 83605; 83690-TC; 84484; 85025; 85610-TC; 85730-TC; 87040-TC; 93005; 96374; 96375; 96376; 99285; J0744; J1170; J1200; J1885; J2270; J2405; J3490; J7030

== ENCOUNTER 2019-12-04 09:09 | Emergency (ER) | payer MEDICAID ==
[~2019-12-04] VITALS: Ht 160 cm; Wt 97.5 kg
[~2019-12-04 09:09] MED LIST changes: -AMIT10TA6 PO; +CARI350T27 PO; -CYCL-10 PO; -FERR-57 PO; +GABA-776 PO; +LEVE500T9 PO; +LISI1TAB28 PO; -PRO40 PO; -TRAM50TA92 PO
[2019-12-04 09:15] VITALS: BP_SYST 111
--- NOTE | 2019-12-04 09:20 | NUR ---
Patient to ER bed 3 to gown for evaluation. Side rails up. Report given to Palmira INTERIANO.
--- NOTE | 2019-12-04 09:32 | NUR ---
ER at bedside examining patient.
--- NOTE | 2019-12-04 09:35 | NUR ---
Patient arrived via POV, AAOx4, and ambulatory with steady gait. Patient c/c of left anterior lower abdominal pain. Patient states pain onset was yesterday, and patient has had nausea. Patient states she was here last month with a diverticulitis and given antibiotics. Patient states she followed up with her oncologist because on the CT scan here it showed a mass to left lower abdomen, more than likely on the lymphnode. Patient states her oncologist stated that if her abdominal pain came back to return to ED for another CT. Patient states she is concerned regarding the pain and where it is located. Patient states she still has her gallbladder and appendix. Patient states pain is 10/10, and sharp and pressure pain. Patient states she has been watching her diet and has not ate anything that could potentially cause another flair up. Will continue to follow up and monitor.
[2019-12-04 09:43] LABS: BILIRUBIN,URINE NEGATIVE (NEGATIVE); BLOOD, URINE TRACE (NEGATIVE); CLARITY/URINE CLEAR (CLEAR); COLOR,URINE YELLOW (YELLOW); GLUCOSE,URINE NEGATIVE (NEGATIVE); KETONES,URINE NEGATIVE (NEGATIVE); LEUKOCYTE ESTERASE ,URINE 2+ (NEGATIVE); NITRITE, URINE NEGATIVE (NEGATIVE); PH,URINE 6.5 (5.0-8.0); PROTEIN URINE NEGATIVE (NEGATIVE); UROBILINOGEN,URINE 0.2 (0.2-1.0)
[2019-12-04] MEDS ORDERED: ONDANSETRON HCL 4 MG/2 ML VIAL IVP ONE ×2 (09:45→11:45)
[2019-12-04] MEDS ORDERED: MORPHINE 4 MG/ML INJ. SYRINGE IVP ONE ×2 (09:45→11:45)
[2019-12-04 09:48] LABS: BACTERIA,URINE MODERATE /HPF (None Seen)
[2019-12-04 10:16] LABS: EOSINOPHILS % (AUTO) 0.9 % (0.0-4.0); HEMATOCRIT 34.4 % (36-48); HEMOGLOBIN 11.7 g/dL (12.0-16.0); LYMPHOCYTES # (AUTO) 2.2 K/uL (1.0-5.5); LYMPHOCYTES % (AUTO) 45.3 % (20.5-51.5); MEAN CORPUSCULAR HEMOGLOBIN 32 pg (27-31); MEAN CORPUSCULAR HGB CONC 34 % (32-36); MEAN CORPUSCULAR VOLUME 94 fL (79.0-98.0); MONOCYTES # (AUTO) 0.5 K/uL (0.0-1.0); MONOCYTES % (AUTO) 9.4 % (1.7-9.3); NEUTROPHILS # (AUTO) 2.1 K/uL (1.8-7.7); NEUTROPHILS % (AUTO) 43.4 % (40.0-70.0); PLATELET COUNT (AUTO) 325 K/uL (130-430); RED BLOOD CELL COUNT(AUTO) 3.65 MIL/uL (4.2-6.2); RED CELL DISTRIBUTION WIDTH 13.1 % (9.0-15.0); WHITE BLOOD COUNT (AUTO) 4.9 K/uL (4.8-10.8)
[2019-12-04] MEDS ORDERED: cefTRIAXone 1 GM IVPB PREMIX 50 ML IV ONE (10:30)
[2019-12-04 10:31] LABS: CALCIUM 8.8 mg/dL (8.4-11.0); CREATININE 0.54 mg/dL (0.55-1.30); POTASSIUM 4.2 mmol/L (3.5-5.1)
[2019-12-04 10:35] LABS: ALBUMIN 3.7 g/dL (3.4-4.8); PROTHROMBIN TIME 9.9 SECS (9.5-12.5); TOTAL BILIRUBIN 0.5 mg/dL (0.0-1.0)
--- NOTE | 2019-12-04 10:35 | NUR ---
Patient taken to CT scan via gurney. Escorted by radiology staff. Will continue to follow up upon return.
--- NOTE | 2019-12-04 11:04 | NUR ---
Patient resting, on cardiac nurse practitioner. VSS. Patient needs are met at this time. Will continue to follow up and monitor.
--- NOTE | 2019-12-04 12:34 | NUR ---
Patient taken to ultrasound ambulatory. Patient in stable condition, medicated for pain and nausea prior to exam.
--- NOTE | 2019-12-04 13:00 | NUR ---
Patient returned from ultrasound ambulatory. Will continue to follow up and monitor.
--- NOTE | 2019-12-04 14:05 | NUR ---
Patient given written and verbal discharge instructions and verbalizes understanding. ER MD discussed with patient the results and treatment provided. Patient in stable condition. ID arm band removed. IV catheter removed intact and dressing applied, no active bleeding. Rx of Zofran, Cipro, Motrin, Tramadol, Flagyl given. Patient educated on pain management and to follow up with PMD. Pain Scale 0/10. Opportunity for questions provided and answered. Medication side effect fact sheet provided.
[2019-12-04 14:12] VITALS: BP_SYST 105
== END 2019-12-04 14:12 | disposition home or self-care (01) ==
LOC: SED 09:09
DX: N39.0 Urinary tract infection, site not specified (principal); R10.32 Left lower quadrant pain; J45.909 Unspecified asthma, uncomplicated; F41.9 Anxiety disorder, unspecified; Z93.3 Colostomy status; Z85.41 Personal history of malignant neoplasm of cervix uteri; Z79.899 Other long term (current) drug therapy
CPT/HCPCS: 36415; 74176; 76830; 76857; 80053; 81000; 83605; 83690; 84703; 85025; 85610; 85730; 87040; 87086; 96365; 96375; 96376; 99284; J0696; J2270; J2405

== ENCOUNTER 2019-12-08 08:53 | Emergency (ER) | payer MEDICAID ==
[~2019-12-08] VITALS: Ht 160 cm; Wt 99.8 kg
[2019-12-08 08:53] VITALS: BP_SYST 107
[2019-12-08] MEDS: MORPHINE 4 MG/ML INJ. SYRINGE IVP ONE (10:48)
[2019-12-08 10:50] LABS: BASOPHILS % (AUTO) 0.4 % (0.0-2.0); EOSINOPHILS # (AUTO) 0.1 K/uL (0.0-0.4); EOSINOPHILS % (AUTO) 1.2 % (0.0-4.0); HEMATOCRIT 35.2 % (36-48); HEMOGLOBIN 11.9 g/dL (12.0-16.0); LYMPHOCYTES # (AUTO) 2.2 K/uL (1.0-5.5); LYMPHOCYTES % (AUTO) 37.3 % (20.5-51.5); MEAN CORPUSCULAR HEMOGLOBIN 32 pg (27-31); MEAN CORPUSCULAR HGB CONC 34 % (32-36); MEAN CORPUSCULAR VOLUME 95 fL (79.0-98.0); MONOCYTES # (AUTO) 0.4 K/uL (0.0-1.0); MONOCYTES % (AUTO) 7.2 % (1.7-9.3); NEUTROPHILS # (AUTO) 3.2 K/uL (1.8-7.7); NEUTROPHILS % (AUTO) 53.9 % (40.0-70.0); PLATELET COUNT (AUTO) 319 K/uL (130-430); RED BLOOD CELL COUNT(AUTO) 3.71 MIL/uL (4.2-6.2); RED CELL DISTRIBUTION WIDTH 13.1 % (9.0-15.0); WHITE BLOOD COUNT (AUTO) 5.9 K/uL (4.8-10.8)
[2019-12-08] MEDS ORDERED: KETAMINE 30 MG/3 ML SYRINGE ONE (10:51)
[2019-12-08] MEDS: KETAMINE 30 MG/3 ML SYRINGE 30 MG in NS 100 ML IV ONE (10:55)
[2019-12-08 10:57] LABS: BILIRUBIN,URINE NEGATIVE (NEGATIVE); BLOOD, URINE NEGATIVE (NEGATIVE); CLARITY/URINE CLEAR (CLEAR); COLOR,URINE YELLOW (YELLOW); GLUCOSE,URINE NEGATIVE (NEGATIVE); KETONES,URINE NEGATIVE (NEGATIVE); LEUKOCYTE ESTERASE ,URINE 1+ (NEGATIVE); NITRITE, URINE NEGATIVE (NEGATIVE); PH,URINE 5.5 (5.0-8.0); PROTEIN URINE NEGATIVE (NEGATIVE); UROBILINOGEN,URINE 0.2 (0.2-1.0)
[2019-12-08 11:01] LABS: CALCIUM 8.8 mg/dL (8.4-11.0); CREATININE 1.11 mg/dL (0.55-1.30); POTASSIUM 3.8 mmol/L (3.5-5.1)
[2019-12-08 11:07] LABS: ALBUMIN 3.6 g/dL (3.4-4.8); TOTAL BILIRUBIN 0.2 mg/dL (0.0-1.0)
[2019-12-08 11:16] LABS: BACTERIA,URINE FEW /HPF (None Seen); RBC,URINE 0-3 /HPF (0-3)
[2019-12-08 11:17] LABS: MUCUS,URINE 1+ /LPF (None Seen)
[2019-12-08] MEDS: ONDANSETRON HCL 4 MG/2 ML VIAL IVP ONE (11:20)
[2019-12-08 13:10] VITALS: BP_SYST 95
== END 2019-12-08 09:50 | disposition home or self-care (01) ==
LOC: SED 08:53
DX: R10.84 Generalized abdominal pain (principal); J45.909 Unspecified asthma, uncomplicated; F41.9 Anxiety disorder, unspecified; Z85.41 Personal history of malignant neoplasm of cervix uteri; Z90.49 Acquired absence of other specified parts of digestive tract; Z90.710 Acquired absence of both cervix and uterus; Z79.899 Other long term (current) drug therapy
CPT/HCPCS: 36415; 74018; 80053; 81000; 83690; 85025; 87086; 96374; 96375; 99284; J2270; J2405

== ENCOUNTER 2019-12-28 15:08 | Inpatient (IN) | payer MEDICAID ==
[~2019-12-28] VITALS: Ht 160 cm; Wt 96.6 kg
[2019-12-28 15:22] VITALS: BP_SYST 100
--- NOTE | 2019-12-28 17:25 | NUR ---
Patient to ER bed 03 to gown for evaluation. Side rails up. Report given to Emy INTERIANO.
--- NOTE | 2019-12-28 17:30 | NUR ---
Patient arrived in the ED c/o abdominal pain that started 2 days ago. Patient denied any chest pain or shortness of breath. Denied any fevers, chills, nausea, or vomiting. Patient is alert and oriented x4, respirations even and unlabored, speaking in full sentences, ambulating with a steady gait. VSS, pain level 8/10. Informed of approximate wait time. Instructed to notify ED staff for any changes in condition or worsening of symptoms. Patient verbalized understanding.
[2019-12-28] MEDS ORDERED: NACL 0.9% 1,000 ML IV ONE (17:41)
--- NOTE | 2019-12-28 17:43 | NUR ---
ER Dr. Stephen at bedside examining patient.
[2019-12-28] MEDS ORDERED: KETOROLAC TROMETHAMINE 30 MG VIAL IVP ONE (17:45)
[2019-12-28] MEDS ORDERED: ONDANSETRON HCL 4 MG/2 ML VIAL IVP ONE (17:45)
--- NOTE | 2019-12-28 18:02 | NUR ---
ob tech at bedside as ordered by Dr. Stephen collecting blood specimen. Patient tolerated the procedure well.
[2019-12-28 18:07] LABS: BILIRUBIN,URINE NEGATIVE (NEGATIVE); BLOOD, URINE NEGATIVE (NEGATIVE); CLARITY/URINE CLEAR (CLEAR); COLOR,URINE YELLOW (YELLOW); GLUCOSE,URINE NEGATIVE (NEGATIVE); KETONES,URINE NEGATIVE (NEGATIVE); LEUKOCYTE ESTERASE ,URINE TRACE (NEGATIVE); NITRITE, URINE NEGATIVE (NEGATIVE); PH,URINE 6.5 (5.0-8.0); PROTEIN URINE NEGATIVE (NEGATIVE); UROBILINOGEN,URINE 0.2 (0.2-1.0)
[2019-12-28 18:31] LABS: BASOPHILS % (AUTO) 0.3 % (0.0-2.0); EOSINOPHILS % (AUTO) 0.4 % (0.0-4.0); HEMATOCRIT 34.2 % (36-48); HEMOGLOBIN 11.7 g/dL (12.0-16.0); LYMPHOCYTES # (AUTO) 1.7 K/uL (1.0-5.5); MEAN CORPUSCULAR HEMOGLOBIN 32 pg (27-31); MEAN CORPUSCULAR HGB CONC 34 % (32-36); MEAN CORPUSCULAR VOLUME 94 fL (79.0-98.0); MONOCYTES # (AUTO) 0.6 K/uL (0.0-1.0); MONOCYTES % (AUTO) 7.9 % (1.7-9.3); NEUTROPHILS # (AUTO) 5.2 K/uL (1.8-7.7); NEUTROPHILS % (AUTO) 68.4 % (40.0-70.0); PLATELET COUNT (AUTO) 276 K/uL (130-430); RED BLOOD CELL COUNT(AUTO) 3.62 MIL/uL (4.2-6.2); RED CELL DISTRIBUTION WIDTH 12.9 % (9.0-15.0); WHITE BLOOD COUNT (AUTO) 7.5 K/uL (4.8-10.8)
--- NOTE | 2019-12-28 18:40 | NUR ---
# 18 gauge angiocath placed to LAC. Use of asceptic technique. Opsite placed over site. Blood return noted. Blood for lab drawn from site. Flushed with 10 cc of normal saline. No evidence of infiltration noted. Patient tolerated well.
--- NOTE | 2019-12-28 18:44 | NUR ---
Administered Zofran and Toradol IVP as ordered by Dr. Stephen. Patient tolerated the medication well. See eMAR for details.
[2019-12-28 18:47] LABS: CREATININE 0.85 mg/dL (0.55-1.30); POTASSIUM 3.7 mmol/L (3.5-5.1)
[2019-12-28 18:51] LABS: ALBUMIN 3.7 g/dL (3.4-4.8); TOTAL BILIRUBIN 0.4 mg/dL (0.0-1.0)
--- NOTE | 2019-12-28 18:52 | NUR ---
Patient is taken to CT, in stable condition.
[2019-12-28 19:15] LABS: BACTERIA,URINE FEW /HPF (None Seen); RBC,URINE 0-3 /HPF (0-3)
[2019-12-28 19:16] LABS: MUCUS,URINE None Seen /LPF (None Seen)
--- NOTE | 2019-12-28 19:20 | NUR ---
Patient is back from CT in stable condition.
--- NOTE | 2019-12-28 19:34 | NUR ---
Report given and care transferred to JAYDON Bourgeois.
--- NOTE | 2019-12-28 20:23 | NUR ---
Portable X Ray bedside, well tolerated
--- NOTE | 2019-12-28 21:29 | NUR ---
VSS no s/s of acute distress Resting on gurney rails up
[2019-12-28] MEDS ORDERED: MORPHINE 4 MG/ML INJ. SYRINGE IVP ONE (21:45)
--- NOTE | 2019-12-28 22:45 | NUR ---
VSS no s/s of acute distress Remains in overall stable condition
--- NOTE | 2019-12-28 23:02 | NUR ---
ADMISSION NOTE Received patient from ER via corina, received report from gaston INTERIANO. Patient admitted with diagnosis of OVARIAN CYST. Patient oriented to hospital routine, call light, toileting and safety-patient verbalized understanding.
--- NOTE | 2019-12-28 23:02 | NUR ---
Patient will be admitted to care of Dr. Mccauley. Admitted to MedSurg unit. Will go to room 109A. Belongings list completed. Complete and up to date summary report printed. SBAR report to be given at bedside with opportunity for questions.
[2019-12-28 23:03] VITALS: BP_SYST 92
--- NOTE | 2019-12-28 23:30 | NUR ---
ADMISSION PHYSICAL ASSESSMENT NOTES; took over care from nurse Shelli admitting. came in fro c/o abdominal sharp pain mostly on the right side. DX Ovarian Cyst. pt. awake, alert and oriented. oriented to room, use of call light and bed control. IV lock on left antecubital. abdomen distended. no nausea nor vomiting, kept NPO. pt. said starting to have pain again, no medication prn order, will call MD and informed pt. moves all extremities. call light within reach.
--- NOTE | 2019-12-28 23:45 | NUR ---
NOTES: asked monitor unit control clerk to call Dr. Fl[employer] telecommunications officer, waiting to call back.
--- NOTE | 2019-12-28 23:46 | NUR ---
April Sam s/w Mindy
--- NOTE | 2019-12-28 23:55 | NUR ---
NOTES: Dr. Sam called back and informed her about pt. pain, will order pain med via computer.
--- NOTE | 2019-12-29 00:10 | NUR ---
NOTES: Dr. Sam came, seen pt. at bedside and will write orders for pt. pain and admission.
[2019-12-29] MEDS ORDERED: ACETAMINOPHEN 325 MG TABLET PO PRN (00:15)
[2019-12-29] MEDS ORDERED: ALBUTEROL SULFATE 0.083% 2.5 MG/3 ML VIAL.NEB INH PRN (00:15)
[2019-12-29] MEDS ORDERED: HYDROmorphone 1 MG INJ. 1 MG/ML AMPUL IVP PRN (00:15)
[2019-12-29] MEDS: levETIRAcetam 500 MG in NS 100 ML IV SCH ×3 (00:30→21:03)
[2019-12-29] MEDS: NACL 0.9% 1,000 ML IV SCH ×3 (01:04→21:03)
[2019-12-29] MEDS: HYDROmorphone 2 MG/ML VIAL IVP PRN ×4 (01:05→17:57)
--- NOTE | 2019-12-29 01:05 | NUR ---
NOTES: IV Dilaudid given for c/o rt sided abdominal pain. IV started with NS @ 100 cc/hr. seizure precautions observed, will have side rails padded. pt. needs attended.
[2019-12-29] MEDS ORDERED: PIPERACILLIN/TAZOBACTAM 3.375 GM/VIAL (ZOSYN) IV ONE (02:10)
[2019-12-29 02:19] VITALS: BP_SYST 92
[2019-12-29] MEDS: PIPERACILLIN/TAZO 3.375/DEX-IS 50 ML IV SCH ×5 (02:33→23:48)
--- NOTE | 2019-12-29 02:44 | NUR ---
NOTES: new IV antibiotic started, IV Keppra not available, pt. informed will start this am. call light within reach.
--- NOTE | 2019-12-29 05:04 | NUR ---
NOTES: pt. remain sleeping, condition observed, continue to monitor. IVF infusing.
--- NOTE | 2019-12-29 06:10 | NUR ---
NOTES: pt. went to restroom and noted pinkish urine output. medicated with IV Dilaudid for c/o rt. sided abdominal pain. due IV antibiotic started. photo lab specialist here for am blood draw. call light within reach.
[2019-12-29 07:16] LABS: BASOPHILS % (AUTO) 0.4 % (0.0-2.0); EOSINOPHILS % (AUTO) 0.8 % (0.0-4.0); HEMATOCRIT 34.8 % (36-48); LYMPHOCYTES # (AUTO) 2.1 K/uL (1.0-5.5); LYMPHOCYTES % (AUTO) 35.6 % (20.5-51.5); MEAN CORPUSCULAR HEMOGLOBIN 33 pg (27-31); MEAN CORPUSCULAR HGB CONC 34 % (32-36); MEAN CORPUSCULAR VOLUME 96 fL (79.0-98.0); MONOCYTES # (AUTO) 0.4 K/uL (0.0-1.0); MONOCYTES % (AUTO) 7.1 % (1.7-9.3); NEUTROPHILS # (AUTO) 3.3 K/uL (1.8-7.7); NEUTROPHILS % (AUTO) 56.1 % (40.0-70.0); PLATELET COUNT (AUTO) 277 K/uL (130-430); RED BLOOD CELL COUNT(AUTO) 3.65 MIL/uL (4.2-6.2); RED CELL DISTRIBUTION WIDTH 12.8 % (9.0-15.0); WHITE BLOOD COUNT (AUTO) 5.9 K/uL (4.8-10.8)
[2019-12-29 07:36] LABS: ALBUMIN 3.3 g/dL (3.4-4.8); CALCIUM 8.4 mg/dL (8.4-11.0); CREATININE 0.79 mg/dL (0.55-1.30); POTASSIUM 3.2 mmol/L (3.5-5.1)
[2019-12-29 07:54] LABS: TOTAL BILIRUBIN 0.7 mg/dL (0.0-1.0)
[2019-12-29 08:18] VITALS: BP_SYST 109
--- NOTE | 2019-12-29 08:20 | NUR ---
initial notes rec patient awake alert with ivf infusing well on the l ac. resp easy and unlabored. no osb noted. bed to the lowest position and side rails up and locked. call light within reached. seen by dr berry ob gyne at bedside.
[2019-12-29] MEDS: ONDANSETRON HCL 4 MG/2 ML VIAL IVP PRN ×3 (08:49→21:04)
--- NOTE | 2019-12-29 10:00 | NUR ---
rounds seen by dr august and with orders. sleeps at intervals.
[2019-12-29] MEDS ORDERED: POTASSIUM CHLORIDE 40 MEQ in NS 250 ML IV SCH (10:17)
--- NOTE | 2019-12-29 10:58 | NUR ---
WOOD GRINDER OPERATOR consult called: for Dr. Lee, regarding pelvic pain, ordered by Dr. Mccauley, spoke with
--- NOTE | 2019-12-29 11:55 | NUR ---
Can Filling Machine Operator: met with pt. to conduct a DCPA and Social Work interview. COTTON AGENT entered pts. room with Corina Gomez who was there for mediation management. COTTON AGENT noticed pt. was grimacing. She stated she was in a lot of pain. COTTON AGENT introduced self. Pt. stated she remembered COTTON AGENT from her last admission. COTTON AGENT told pt. the reason for her visit. Pt. said everyone was taking good care of her. COTTON AGENT stated she was sad to hear pt. was back and in so much pain. Pt. was alert and orientated. She was lying down and moaned and groaned throughout the interview. Pt. was able to confirm the demographics on the facesheet. One correction will be requested. Pts. , Adriel has the wrong phone number listed. It should be his cell phone at [phone]. Pt. stated she has a lot of health issues going on with her abdominal area. She stated she has been treated for cancer. She has 3 children at home, ages 19,14 and 9. She resides at home with her and all 3 children. Pt. expressed interest in the children's mental psyche and inquired about some mental health for them. COTTON AGENT shared with pt. a resource for mental health resources. COTTON AGENT asked pt. and to make some phone calls to see if they can make an appt. for their children. Pt. was grateful. At this time , arrived and was able to greet his . pt. stated he is a good source of support and help for her. At times she finds it very difficult to walk and her helps her. Pt. stated she suffers from Anxiety because of all her medical conditions. She takes the generic form of Xanax on a daily basis. Pt. stated she is goo with taking her meds. When asked if pt. feels she experiences depression, pt. said no only when she is away from her children. COTTON AGENT asked pt. if she has ever felt or is feeling suicidal. Pt. denied this. COTTON AGENT thanked pt for her input and will remain available as needed.
--- NOTE | 2019-12-29 12:42 | NUR ---
DC Planning: updated clinical info to [employer] protective services case worker: DIONNE US: ovarian cyst 2 cm and pending surgical consultation. CM to f/u POC.
--- NOTE | 2019-12-29 18:30 | NUR ---
closing notes pain med was given as requested. no sob noted. call light within reached.
[2019-12-29] MEDS: LORazepam 2 MG/ML VIAL IVP PRN (18:58)
--- NOTE | 2019-12-29 19:30 | NUR ---
Opening notes Received report. Patient is resting in bed. No signs of distress noted. Breathing even and unlabored. No complaints of pain or discomfort. IV patent and intact, no signs of infiltration noted. No needs. Call light with the patient. Safety precautions in place.
[2019-12-29 20:00] VITALS: BP_SYST 111
[2019-12-29] MEDS ORDERED: GABAPENTIN 300 MG CAPSULE PO SCH (21:00)
--- NOTE | 2019-12-29 21:00 | NUR ---
Medications given. Patient complain of nausea/vomiting. PRN medication given. Educated the action and side effects of medications. Patient verbalized understanding and tolerated well. No signs of allergic reaction noted. No other needs. Call light with the patient. Safety precautions in place.
--- NOTE | 2019-12-30 | NUR ---
Sleeping Patient sleeping. No signs of distress noted. Breathing even and unlabored. IV patent and intact, no signs of infiltration noted. No needs. Call light with the patient. Safety precautions in place.
[2019-12-30 01:14] VITALS: BP_SYST 100
--- NOTE | 2019-12-30 02:30 | NUR ---
Sleeping No signs of distress noted. Breathing even and unlabored. IVF infusing well. Call light with the patient. Safety precautions in place.
[2019-12-30] MEDS: PIPERACILLIN/TAZO 3.375/DEX-IS 50 ML IV SCH ×3 (05:28→17:49)
[2019-12-30] MEDS: HYDROmorphone 2 MG/ML VIAL IVP PRN (05:28)
[2019-12-30] MEDS: ONDANSETRON HCL 4 MG/2 ML VIAL IVP PRN (05:28)
[2019-12-30 05:38] VITALS: BP_SYST 122
--- NOTE | 2019-12-30 06:50 | NUR ---
Closing notes Patient resting in bed. No signs of distress noted. Breathing even and unlabored. No complaints of pain. IV patent and intact, infusing fluids. all needs met throughout the shift. Call light with the patient. Safety precautions in place. Will endorse care to day shift RN.
[2019-12-30 08:00] VITALS: BP_SYST 105
--- NOTE | 2019-12-30 08:00 | NUR ---
initial notes rec patient asleep but aorusable to stimuli. ivf infusing well on the l ac. no infiltration noted. resp easy and unlabored. no sob noted. bed to the lowest positon and side rails up and locked. call light within reached.
[2019-12-30 09:19] LABS: BASOPHILS % (AUTO) 0.3 % (0.0-2.0); EOSINOPHILS % (AUTO) 0.4 % (0.0-4.0); LYMPHOCYTES # (AUTO) 1.2 K/uL (1.0-5.5); LYMPHOCYTES % (AUTO) 25.1 % (20.5-51.5); MEAN CORPUSCULAR HEMOGLOBIN 33 pg (27-31); MEAN CORPUSCULAR HGB CONC 34 % (32-36); MEAN CORPUSCULAR VOLUME 95 fL (79.0-98.0); MONOCYTES # (AUTO) 0.4 K/uL (0.0-1.0); NEUTROPHILS # (AUTO) 3.3 K/uL (1.8-7.7); NEUTROPHILS % (AUTO) 66.2 % (40.0-70.0); PLATELET COUNT (AUTO) 255 K/uL (130-430); RED BLOOD CELL COUNT(AUTO) 3.38 MIL/uL (4.2-6.2); RED CELL DISTRIBUTION WIDTH 12.8 % (9.0-15.0); WHITE BLOOD COUNT (AUTO) 4.9 K/uL (4.8-10.8)
[2019-12-30] MEDS: levETIRAcetam 500 MG in NS 100 ML IV SCH (09:32)
[2019-12-30] MEDS: LORazepam 2 MG/ML VIAL IVP PRN ×2 (09:33→18:02)
[2019-12-30 09:36] LABS: ALBUMIN 3.1 g/dL (3.4-4.8); CALCIUM 8.2 mg/dL (8.4-11.0); CREATININE 0.67 mg/dL (0.55-1.30); POTASSIUM 3.7 mmol/L (3.5-5.1); TOTAL BILIRUBIN 0.7 mg/dL (0.0-1.0)
--- NOTE | 2019-12-30 10:00 | NUR ---
rounds due meds given as ordered. seen by dr berry at bedside. call light within reached.
--- NOTE | 2019-12-30 12:00 | NUR ---
rounds iv abx was infused. denies pain, ambulates to the br assisted by the . call light within reached.
[2019-12-30] MEDS: NACL 0.9% 1,000 ML IV SCH (12:03)
[2019-12-30 12:28] VITALS: BP_SYST 103
--- NOTE | 2019-12-30 14:00 | NUR ---
rounds seen by dr malloy in the room. call light within reached. pt sienna regular food. no nausea/vomiting noted.
--- NOTE | 2019-12-30 15:33 | NUR ---
dr Epifanio Marley here to see patient. 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 Patient was started on regular diet
[2019-12-30 16:28] VITALS: BP_SYST 98
--- NOTE | 2019-12-30 17:30 | NUR ---
rounds dr malloy was called since patient sienna diet. no nausea and vomiting noted. awaiting to call back since patient wants to go home.
--- NOTE | 2019-12-30 18:00 | NUR ---
rounds dr august called and stated to read notes of dr jeaneth up discharging the patient.
--- NOTE | 2019-12-30 20:10 | NUR ---
AMA: Patient does not wish to proceed with medical care recommended by Dr. Mccauley. Patient given information related to possible complications, up to and including , which could occur as a result of leaving hospital at this time. Patient verbalizes understanding of risks involved leaving against medical advice. Patient has signed AMA form.
== END 2019-12-30 20:10 | disposition left against medical advice (07) | DRG 532 ==
LOC: SED 15:08 → SMU 20:38
PROVIDERS: ADMIT Internal Medicine Hospice and Palliative Medicine; ATTEND Internal Medicine Hospice and Palliative Medicine
DX: N83.201 Unspecified ovarian cyst, right side (principal); E87.1 Hypo-osmolality and hyponatremia; R56.9 Unspecified convulsions; F41.9 Anxiety disorder, unspecified; I10 Essential (primary) hypertension; Z53.29 Procedure and treatment not carried out because of patient's decision for other reasons; Z80.49 Family history of malignant neoplasm of other genital organs; Z85.41 Personal history of malignant neoplasm of cervix uteri; Z90.49 Acquired absence of other specified parts of digestive tract; Z93.3 Colostomy status; Z90.710 Acquired absence of both cervix and uterus; Z79.899 Other long term (current) drug therapy
CPT/HCPCS: 36415; 76830-TC; 76857; 80053; 81000-TC; 83690-TC; 85025; 87086; 96361; 96374; 96375; 99285; J1170; J1885; J1953; J2060; J2270; J2405; J2543; J3480; J7030; J7050; J7060

== ENCOUNTER 2020-03-21 18:14 | Emergency (ER) | payer MEDICAID ==
[~2020-03-21] VITALS: Ht 160 cm; Wt 95.3 kg
[2020-03-21 19:02] LABS: BASOPHILS % (AUTO) 0.5 % (0.0-2.0); EOSINOPHILS # (AUTO) 0.1 K/uL (0.0-0.4); EOSINOPHILS % (AUTO) 1.1 % (0.0-4.0); HEMATOCRIT 37.7 % (36-48); HEMOGLOBIN 12.6 g/dL (12.0-16.0); LYMPHOCYTES # (AUTO) 3.7 K/uL (1.0-5.5); LYMPHOCYTES % (AUTO) 48.8 % (20.5-51.5); MEAN CORPUSCULAR HEMOGLOBIN 32 pg (27-31); MEAN CORPUSCULAR HGB CONC 33 % (32-36); MEAN CORPUSCULAR VOLUME 95 fL (79.0-98.0); MONOCYTES # (AUTO) 0.7 K/uL (0.0-1.0); MONOCYTES % (AUTO) 8.8 % (1.7-9.3); NEUTROPHILS # (AUTO) 3.1 K/uL (1.8-7.7); NEUTROPHILS % (AUTO) 40.8 % (40.0-70.0); PLATELET COUNT (AUTO) 367 K/uL (130-430); RED BLOOD CELL COUNT(AUTO) 3.98 MIL/uL (4.2-6.2); RED CELL DISTRIBUTION WIDTH 12.7 % (9.0-15.0); WHITE BLOOD COUNT (AUTO) 7.6 K/uL (4.8-10.8)
[2020-03-21 19:22] VITALS: BP_SYST 115
[2020-03-21 19:22] LABS: CALCIUM 8.8 mg/dL (8.4-11.0); CREATININE 1.22 mg/dL (0.55-1.30); POTASSIUM 3.7 mmol/L (3.5-5.1)
[2020-03-21] MEDS ORDERED: ONDA4TAB5 PO (19:22)
--- NOTE | 2020-03-21 19:28 | NUR ---
PATIENT RETURNED TO WAITING AREA PENDING BED ASSIGNMENT (WITH UX CUP)
[2020-03-21 19:34] LABS: ALBUMIN 3.6 g/dL (3.4-4.8); TOTAL BILIRUBIN 0.4 mg/dL (0.0-1.0)
--- NOTE | 2020-03-21 22:10 | NUR ---
Patient to ER bed 06 to gown for evaluation. Side rails up.
--- NOTE | 2020-03-21 22:16 | NUR ---
Pt brought in by family member. Pt awake, alert, oriented x4. Pt ambulates with steady gait. Pt states that she has has abdominal and bilateral flank/back pain for the past 48 hours with increasing severity Pt states that she has inguinal pain and back pain chronically from ovarian cysts and cancer. Pt states that she came in for pain control, stated that dilauded has worked for her in the past. Pt denies chest pain, nausea, vomiting, diarrhea, shortness of breath, fever, dizziness, blurred vision, any other complaint at this time. Pt resting in ed bed, mild distress.
--- NOTE | 2020-03-21 22:20 | NUR ---
ER at bedside examining patient.
[2020-03-21] MEDS ORDERED: MORPHINE 4 MG/ML INJ. SYRINGE IM ONE (22:30)
--- NOTE | 2020-03-21 23:15 | NUR ---
Pt off unit for ultrasound. Pt escorted by medical service technician in wheelchair.
[2020-03-21 23:35] LABS: BILIRUBIN,URINE NEGATIVE (NEGATIVE); BLOOD, URINE NEGATIVE (NEGATIVE); CLARITY/URINE CLEAR (CLEAR); COLOR,URINE YELLOW (YELLOW); GLUCOSE,URINE NEGATIVE (NEGATIVE); KETONES,URINE NEGATIVE (NEGATIVE); LEUKOCYTE ESTERASE ,URINE 1+ (NEGATIVE); NITRITE, URINE NEGATIVE (NEGATIVE); PH,URINE 5.5 (5.0-8.0); PROTEIN URINE NEGATIVE (NEGATIVE); UROBILINOGEN,URINE 0.2 (0.2-1.0)
[2020-03-21 23:44] LABS: BACTERIA,URINE FEW /HPF (None Seen); RBC,URINE 0-3 /HPF (0-3)
--- NOTE | 2020-03-22 | NUR ---
pt returned to ER bed by technical assistant, back to bed without incident.
--- NOTE | 2020-03-22 01:00 | NUR ---
Pt resting in ed bed watching movie on tablet device and texting on mobile phone. pt displaying no distress at this time. pt respiratory rate even, unlabored.
[2020-03-22] MEDS ORDERED: CEPHALEXIN 500 MG CAPSULE PO ONE (01:45)
[2020-03-22 02:10] VITALS: BP_SYST 118
--- NOTE | 2020-03-22 02:10 | NUR ---
Patient given written and verbal discharge instructions and verbalizes understanding. ER MD discussed with patient the results and treatment provided. Patient in stable condition. ID arm band removed. no IV. Rx of Cassoday and Keflex given. Patient educated on pain management and to follow up with PMD. Pain Scale 5/10. Opportunity for questions provided and answered. Medication side effect fact sheet provided.
== END 2020-03-22 02:10 | disposition home or self-care (01) ==
LOC: SED 18:14
DX: N39.0 Urinary tract infection, site not specified (principal); N83.201 Unspecified ovarian cyst, right side
CPT/HCPCS: 36415; 76830; 76857; 80053; 81000; 81025; 83690; 84702; 85025; 87086; 96372; 99284; J2270

== ENCOUNTER 2020-03-27 11:16 | Emergency (ER) | payer MEDICAID ==
[~2020-03-27] VITALS: Ht 162.6 cm; Wt 72.6 kg
[~2020-03-27 11:16] MED LIST changes: +ONDA4TAB5 PO
--- NOTE | 2020-03-27 11:20 | NUR ---
Patient to ER bed 07 to gown for evaluation. Side rails up.
--- NOTE | 2020-03-27 11:22 | NUR ---
Patient arrived in the ED c/o right lower abdominal pain that started 2 days ago. Denied any chest pain or shortness of breath. Denied any fevers, chills, or vomiting. Patient is alert and oriented x4, respirations even and unlabored, speaking in full sentences, and ambulating with a steady gait. VSS, pain level 10/10. Informed of the approximate wait time. Instructed to notify ED staff for any changes in condition or worsening of symptoms. Patient verbalized understanding.
[2020-03-27 11:31] VITALS: BP_SYST 130
--- NOTE | 2020-03-27 11:41 | NUR ---
ER Dr. Rosario at bedside examining patient.
[2020-03-27] MEDS ORDERED: ONDANSETRON HCL 4 MG/2 ML VIAL IVP ONE (12:00)
[2020-03-27] MEDS ORDERED: MORPHINE 4 MG/ML INJ. SYRINGE IVP ONE (12:00)
[2020-03-27 12:09] LABS: BASOPHILS % (AUTO) 0.6 % (0.0-2.0); EOSINOPHILS % (AUTO) 0.7 % (0.0-4.0); HEMATOCRIT 34.4 % (36-48); HEMOGLOBIN 11.8 g/dL (12.0-16.0); LYMPHOCYTES # (AUTO) 2.3 K/uL (1.0-5.5); LYMPHOCYTES % (AUTO) 43.5 % (20.5-51.5); MEAN CORPUSCULAR HEMOGLOBIN 32 pg (27-31); MEAN CORPUSCULAR HGB CONC 34 % (32-36); MEAN CORPUSCULAR VOLUME 93 fL (79.0-98.0); MONOCYTES # (AUTO) 0.3 K/uL (0.0-1.0); MONOCYTES % (AUTO) 6.3 % (1.7-9.3); NEUTROPHILS # (AUTO) 2.5 K/uL (1.8-7.7); NEUTROPHILS % (AUTO) 48.9 % (40.0-70.0); PLATELET COUNT (AUTO) 326 K/uL (130-430); RED CELL DISTRIBUTION WIDTH 12.5 % (9.0-15.0); WHITE BLOOD COUNT (AUTO) 5.2 K/uL (4.8-10.8)
[2020-03-27 12:19] LABS: CALCIUM 8.3 mg/dL (8.4-11.0); CREATININE 0.83 mg/dL (0.55-1.30); POTASSIUM 3.9 mmol/L (3.5-5.1)
[2020-03-27 12:25] LABS: ALBUMIN 3.4 g/dL (3.4-4.8); TOTAL BILIRUBIN 0.2 mg/dL (0.0-1.0)
--- NOTE | 2020-03-27 12:31 | NUR ---
Medication reconciliation done.
[2020-03-27 12:35] LABS: BILIRUBIN,URINE NEGATIVE (NEGATIVE); COLOR,URINE YELLOW (YELLOW); GLUCOSE,URINE NEGATIVE (NEGATIVE); KETONES,URINE NEGATIVE (NEGATIVE); LEUKOCYTE ESTERASE ,URINE 1+ (NEGATIVE); NITRITE, URINE NEGATIVE (NEGATIVE); PROTEIN URINE NEGATIVE (NEGATIVE); UROBILINOGEN,URINE 0.2 (0.2-1.0)
[2020-03-27 13:03] LABS: BLOOD, URINE TRACE (NEGATIVE); CLARITY/URINE SLIGHTLY HAZY (CLEAR)
[2020-03-27 13:08] LABS: BACTERIA,URINE MODERATE /HPF (None Seen); RBC,URINE 0-3 /HPF (0-3)
[2020-03-27 13:09] LABS: MUCUS,URINE 1+ /LPF (None Seen)
--- NOTE | 2020-03-27 14:28 | NUR ---
Patient given written and verbal discharge instructions and verbalizes understanding. ER MD discussed with patient the results and treatment provided. Patient in stable condition. ID arm band removed. IV catheter removed intact and dressing applied, no active bleeding. Rx of percocet given. Patient educated on pain management and to follow up with PMD. Pain Scale 0/10. Opportunity for questions provided and answered. Medication side effect fact sheet provided.
[2020-03-27 14:29] VITALS: BP_SYST 105
== END 2020-03-27 14:29 | disposition home or self-care (01) ==
LOC: SED 11:16
DX: R19.03 Right lower quadrant abdominal swelling, mass and lump (principal); J45.909 Unspecified asthma, uncomplicated; Z79.899 Other long term (current) drug therapy
CPT/HCPCS: 36415; 80053; 81000; 83690; 85025; 87086; 96374; 96375; 99284; J2270; J2405

== ENCOUNTER 2020-05-14 17:06 | Emergency (ER) | payer MEDICAID ==
[~2020-05-14] VITALS: Ht 160 cm; Wt 97.5 kg
[2020-05-14 17:25] VITALS: BP_SYST 129
[2020-05-14 18:01] LABS: BASOPHILS % (AUTO) 0.4 % (0.0-2.0); EOSINOPHILS % (AUTO) 0.3 % (0.0-4.0); HEMATOCRIT 36.3 % (36-48); LYMPHOCYTES # (AUTO) 2.4 K/uL (1.0-5.5); LYMPHOCYTES % (AUTO) 26.2 % (20.5-51.5); MEAN CORPUSCULAR HEMOGLOBIN 31 pg (27-31); MEAN CORPUSCULAR HGB CONC 33 % (32-36); MEAN CORPUSCULAR VOLUME 94 fL (79.0-98.0); MONOCYTES # (AUTO) 0.7 K/uL (0.0-1.0); MONOCYTES % (AUTO) 7.2 % (1.7-9.3); NEUTROPHILS # (AUTO) 6.1 K/uL (1.8-7.7); NEUTROPHILS % (AUTO) 65.9 % (40.0-70.0); PLATELET COUNT (AUTO) 364 K/uL (130-430); RED BLOOD CELL COUNT(AUTO) 3.86 MIL/uL (4.2-6.2); RED CELL DISTRIBUTION WIDTH 12.6 % (9.0-15.0); WHITE BLOOD COUNT (AUTO) 9.2 K/uL (4.8-10.8)
[2020-05-14 18:19] LABS: CALCIUM 8.9 mg/dL (8.4-11.0); CREATININE 0.89 mg/dL (0.55-1.30); POTASSIUM 3.6 mmol/L (3.5-5.1)
[2020-05-14 18:24] LABS: ALBUMIN 3.5 g/dL (3.4-4.8); TOTAL BILIRUBIN 0.3 mg/dL (0.0-1.0)
--- NOTE | 2020-05-14 21:53 | NUR ---
Patient ambulatory to bed 1 for evaluation
--- NOTE | 2020-05-14 22:00 | NUR ---
ER at bedside examining patient.
--- NOTE | 2020-05-14 22:20 | NUR ---
Pt presents to the ER c/o LLQ abdominal pain x today. Pt has nasuea and diarrhea due to the pain. Pt has taken motrin w/ no relief. Denies FEVER,CP, SOB. HX cervical cancer.
[2020-05-14] MEDS ORDERED: NACL 0.9% 1,000 ML IV ONE (22:55)
[2020-05-14] MEDS ORDERED: DIPHENHYDRAMINE INJ 50 MG/ML VIAL IVP ONE (23:00)
[2020-05-14] MEDS ORDERED: KETOROLAC TROMETHAMINE 30 MG VIAL IVP ONE (23:00)
[2020-05-14] MEDS ORDERED: MORPHINE 2 MG/ML INJ. SYRINGE IVP ONE (23:00)
[2020-05-14] MEDS ORDERED: ONDANSETRON HCL 4 MG/2 ML VIAL IVP ONE (23:00)
--- NOTE | 2020-05-14 23:30 | NUR ---
Patient resting, no complaints. Pain has decreased. AxOx4.
[2020-05-14 23:43] LABS: BILIRUBIN,URINE NEGATIVE (NEGATIVE); BLOOD, URINE NEGATIVE (NEGATIVE); CLARITY/URINE CLEAR (CLEAR); COLOR,URINE YELLOW (YELLOW); GLUCOSE,URINE NEGATIVE (NEGATIVE); KETONES,URINE NEGATIVE (NEGATIVE); LEUKOCYTE ESTERASE ,URINE NEGATIVE (NEGATIVE); NITRITE, URINE NEGATIVE (NEGATIVE); PH,URINE 5.5 (5.0-8.0); PROTEIN URINE NEGATIVE (NEGATIVE); UROBILINOGEN,URINE 0.2 (0.2-1.0)
[2020-05-15 00:30] VITALS: BP_SYST 129
--- NOTE | 2020-05-15 00:30 | NUR ---
Patient given written and verbal discharge instructions and verbalizes understanding. ER MD discussed with patient the results and treatment provided. Patient in stable condition. ID arm band removed. IV catheter removed intact and dressing applied, no active bleeding. Rx of ibuprofen and norco given. Patient educated on pain management and to follow up with PMD. Pain Scale 1/10. Opportunity for questions provided and answered. Medication side effect fact sheet provided.
== END 2020-05-15 00:30 | disposition home or self-care (01) ==
LOC: SED 17:06
DX: N83.202 Unspecified ovarian cyst, left side (principal); R11.2 Nausea with vomiting, unspecified; J45.909 Unspecified asthma, uncomplicated; Z79.899 Other long term (current) drug therapy
CPT/HCPCS: 36415; 74176; 76830; 76857; 80053; 81003; 83690; 85025; 96374; 96375; 99285; J1200; J1885; J2270; J2405; J7030

== ENCOUNTER 2020-08-22 20:21 | Inpatient (IN) | payer MEDICAID, SELFPAY ==
[~2020-08-22] VITALS: Ht 160 cm; Wt 99.3 kg
[~2020-08-22 20:21] MED LIST changes: -LISI1TAB28 PO; +LISI1TAB55 PO
[2020-08-22 20:25] VITALS: BP_SYST 123
--- NOTE | 2020-08-22 20:25 | NUR ---
Patient to ER bed 7 to gown for evaluation. Side rails up.
--- NOTE | 2020-08-22 20:30 | NUR ---
PT AAO AND AMBULATORY C/O ABDOMINAL PAIN FOR 2 WEEKS, RECTAL BLEEDING FOR THREE DAY, TWO EPISODES OF VOMITING, AND REPORTS WEAKNESS. PT REPORTS FAINT VAGINAL BLEEDING AND 10/10 PAIN SCALE. V/S STABLE CURRENTLY.
--- NOTE | 2020-08-22 21:55 | NUR ---
DR. TRIPLETT AT BEDSIDE TO EVALUATE PT STATUS. ASSISTED DR. TRIPLETT WITH PELVIC/RECTAL EXAMINATION
[2020-08-22] MEDS ORDERED: ONDANSETRON HCL 4 MG/2 ML VIAL IVP ONE ×2 (22:00→23:45)
[2020-08-22] MEDS ORDERED: MORPHINE 4 MG/ML INJ. SYRINGE IVP ONE ×2 (22:00→23:45)
[2020-08-22] MEDS ORDERED: NACL 0.9% 1,000 ML IV ONE (22:00)
[2020-08-22] MEDS ORDERED: DIPHENHYDRAMINE INJ 50 MG/ML VIAL IVP ONE (22:00)
[2020-08-22 22:30] LABS: BASOPHILS % (AUTO) 0.3 % (0.0-2.0); EOSINOPHILS % (AUTO) 0.5 % (0.0-4.0); HEMATOCRIT 35.3 % (36-48); HEMOGLOBIN 11.7 g/dL (12.0-16.0); LYMPHOCYTES # (AUTO) 2.4 K/uL (1.0-5.5); LYMPHOCYTES % (AUTO) 38.9 % (20.5-51.5); MEAN CORPUSCULAR HEMOGLOBIN 29 pg (27-31); MEAN CORPUSCULAR HGB CONC 33 % (32-36); MEAN CORPUSCULAR VOLUME 88 fL (79.0-98.0); MONOCYTES # (AUTO) 0.5 K/uL (0.0-1.0); MONOCYTES % (AUTO) 7.5 % (1.7-9.3); NEUTROPHILS # (AUTO) 3.3 K/uL (1.8-7.7); NEUTROPHILS % (AUTO) 52.8 % (40.0-70.0); PLATELET COUNT (AUTO) 346 K/uL (130-430); RED BLOOD CELL COUNT(AUTO) 4.03 MIL/uL (4.2-6.2); RED CELL DISTRIBUTION WIDTH 13.5 % (9.0-15.0); WHITE BLOOD COUNT (AUTO) 6.2 K/uL (4.8-10.8)
[2020-08-22 22:40] LABS: BILIRUBIN,URINE NEGATIVE (NEGATIVE); BLOOD, URINE NEGATIVE (NEGATIVE); CLARITY/URINE CLOUDY (CLEAR); COLOR,URINE YELLOW (YELLOW); GLUCOSE,URINE NEGATIVE (NEGATIVE); KETONES,URINE 1+ (NEGATIVE); LEUKOCYTE ESTERASE ,URINE 1+ (NEGATIVE); NITRITE, URINE NEGATIVE (NEGATIVE); PROTEIN URINE NEGATIVE (NEGATIVE); UROBILINOGEN,URINE 0.2 (0.2-1.0)
[2020-08-22 22:43] LABS: CALCIUM 8.5 mg/dL (8.4-11.0); CREATININE 0.65 mg/dL (0.55-1.30); POTASSIUM 3.5 mmol/L (3.5-5.1)
--- NOTE | 2020-08-22 22:45 | NUR ---
PT RESTING QUIETLY IN NO DISTRESS AWAITING U/S TO BE DONE
[2020-08-22 22:48] LABS: PROTHROMBIN TIME 10.4 SECS (9.5-12.5)
[2020-08-22 22:48] LABS: BACTERIA,URINE MANY /HPF (None Seen); RBC,URINE 0-3 /HPF (0-3)
[2020-08-22 22:49] LABS: MUCUS,URINE 2+ /LPF (None Seen)
[2020-08-22 22:49] LABS: ALBUMIN 3.6 g/dL (3.4-4.8); TOTAL BILIRUBIN 0.5 mg/dL (0.0-1.0)
--- NOTE | 2020-08-22 23:00 | NUR ---
U/S BEING DONE AT BEDSIDE
--- NOTE | 2020-08-22 23:25 | NUR ---
U/S COMPLETE, PT TOLERATED WELL.
[2020-08-22] MEDS ORDERED: KETOROLAC TROMETHAMINE 30 MG VIAL IVP ONE (23:45)
[2020-08-23] VITALS (7 sets, daily range): BP systolic 93–117
--- NOTE | 2020-08-23 01:00 | NUR ---
PT RESTING QUIETLY IN NO DISTRESS AWAITING DISPOSITION.
--- NOTE | 2020-08-23 01:25 | NUR ---
RECEIVED ADMIT ORDERS FROM DR. RUFF FOR JANDIAL ADMISSION. PT TO BE ADMITTED TO MED-SURG OBS.
[2020-08-23] MEDS ORDERED: NACL 0.9% 1,000 ML IV SCH (01:30)
--- NOTE | 2020-08-23 01:30 | NUR ---
CALLED FLOOR FOR MED-SURG BED, AWAITING CHRISTOFER BARRAGAN
--- NOTE | 2020-08-23 02:26 | NUR ---
ADMISSION NOTE: Received patient from ER via corina, received report from JAYDON VENTURA. Patient admitted with diagnosis of ABDOMINAL PAIN. Patient oriented to hospital routine, call light, toileting and safety-patient verbalized understanding.
--- NOTE | 2020-08-23 02:30 | NUR ---
Patient will be admitted to care of Dr. Dowd. Admitted to Med Surg unit. Will go to room 101. Belongings list completed. Complete and up to date summary report printed. SBAR report to be given at bedside with opportunity for questions.
--- NOTE | 2020-08-23 03:04 | NUR ---
SPOKE TO DR. RUFF, RECEIVED NEW ORDERS FOR ONE ORDER OF DILAUDID IVP AND KEPPRA 500 MG IV.
--- NOTE | 2020-08-23 03:05 | NUR ---
HIGH ALERT NOTE: Called Dr. RUFF back at [phone] identified within the medical roster to verify physician authenticity.
[2020-08-23] MEDS ORDERED: levETIRAcetam 500 MG in NS 100 ML IV ONE (03:15)
[2020-08-23] MEDS ORDERED: HYDROmorphone 1 MG INJ. 1 MG/ML AMPUL IVP ONE (03:15)
[2020-08-23] MEDS ORDERED: ALBUTEROL SULFATE 0.083% 2.5 MG/3 ML VIAL.NEB INH PRN (05:15)
[2020-08-23] MEDS ORDERED: ACETAMINOPHEN 325 MG TABLET PO PRN (05:15)
[2020-08-23] MEDS: NACL 0.9% 1,000 ML IV SCH ×3 (05:15→22:24)
[2020-08-23] MEDS ORDERED: carisoprodoL 350 MG TABLET PO PRN (05:15)
[2020-08-23] MEDS ORDERED: LORazepam 2 MG/ML VIAL IVP PRN (05:15)
--- NOTE | 2020-08-23 05:32 | NUR ---
CONSULT: CONSULT CALLED FOR DR. CARLOS THAYER MACHINE II COREMAKER AT THIS MOMENT I SPOKE TO JENNIFER ORDOÑEZ REASON FOR CONSULT: ABDOMINAL PAIN REQUESTING CONSULT: DR. LOZANO METAL HARDENER PHONE NUMBER: [phone]
[2020-08-23] MEDS: PANTOPRAZOLE SODIUM 40 MG/VIAL (PROTONIX) IVP SCH ×3 (06:12→20:38)
--- NOTE | 2020-08-23 06:16 | NUR ---
CLOSING NOTES Patient in pain, explained to patient unable to provide pain medication at this time, but provided IV antibiotics and Protonix IVP and Soma for muscle spasms. Call light within reach, bed alarm on, bed at lowest position. Seizure precautions in place. Warm blanket and ice chips provided to patient. All needs met throughout shift. Will endorse care to oncoming shift.
[2020-08-23] MEDS: cefTRIAXone 1 GM IVPB PREMIX 50 ML IV SCH (06:25)
[2020-08-23] MEDS ORDERED: cefTRIAXone 1 GM IVPB PREMIX 50 ML IV ONE (06:39)
--- NOTE | 2020-08-23 07:15 | NUR ---
HOME MEDICATIONS: Patient in possession of medications from home. Patient was informed that home medications cannot be present at bedside. Explained to patient that hospital pharmacy will store medications and return them upon discharge. Patient verbalized understanding. Medications were reviewed with patient and placed in home med envelope. Envelope was sealed. Accepted by hospital pharmacy at this time. Receipt placed in paper chart.
[2020-08-23 07:27] LABS: BASOPHILS % (AUTO) 0.3 % (0.0-2.0); EOSINOPHILS % (AUTO) 0.6 % (0.0-4.0); HEMATOCRIT 31.3 % (36-48); HEMOGLOBIN 10.5 g/dL (12.0-16.0); LYMPHOCYTES # (AUTO) 2.3 K/uL (1.0-5.5); LYMPHOCYTES % (AUTO) 47.9 % (20.5-51.5); MEAN CORPUSCULAR HEMOGLOBIN 30 pg (27-31); MEAN CORPUSCULAR HGB CONC 34 % (32-36); MEAN CORPUSCULAR VOLUME 88 fL (79.0-98.0); MONOCYTES # (AUTO) 0.5 K/uL (0.0-1.0); MONOCYTES % (AUTO) 9.4 % (1.7-9.3); NEUTROPHILS % (AUTO) 41.8 % (40.0-70.0); PLATELET COUNT (AUTO) 293 K/uL (130-430); RED BLOOD CELL COUNT(AUTO) 3.57 MIL/uL (4.2-6.2); RED CELL DISTRIBUTION WIDTH 13.8 % (9.0-15.0); WHITE BLOOD COUNT (AUTO) 4.8 K/uL (4.8-10.8)
[2020-08-23] MEDS: HYDROmorphone 1 MG INJ. 1 MG/ML AMPUL IVP PRN ×4 (08:07→20:40)
[2020-08-23 08:20] LABS: ALANINE AMINOTRANSFERASE 27 U/L (12-78); ANION GAP 6 (5-15); ASPARTATE AMINOTRANSFERASE 21 U/L (10-37); CALCIUM 7.8 mg/dL (8.4-11.0); CHLORIDE 104 mmol/L (98-107); CREATININE 0.58 mg/dL (0.55-1.30); GLUCOSE 91 mg/dL (70-99); POTASSIUM 3.6 mmol/L (3.5-5.1); SODIUM SERUM 136 mmol/L (136-145); TOTAL BILIRUBIN 0.5 mg/dL (0.0-1.0); UREA NITROGEN, BLOOD 15 mg/dL (8-21)
[2020-08-23 08:21] LABS: GFR AFRICAN AMERICAN 152 mL/min (>90)
--- NOTE | 2020-08-23 08:42 | NUR ---
Nutrition Update Jesus scale 18 noted. Pt admitted for abdominal pain Diet: NPO BMI: 38.8 kg/m2 RD to follow per nutrition care standards.
--- NOTE | 2020-08-23 09:00 | NUR ---
NURSE REPORT Report obtained from night nurse John and this nurse assumed care of patient until 193. Medicated for pain last at 0807 with Dilaudid 1 mg IVP with relief. VSS. Afeb. IV NS at 125 ml/hr. NPO except sips and ice chips. Hx of seizures. Given med for seizures.
[2020-08-23] MEDS: levETIRAcetam 500 MG TABLET PO SCH ×2 (09:14→20:38)
[2020-08-23] MEDS: ALPRAZolam 0.25 MG TABLET PO SCH ×2 (09:14→20:39)
[2020-08-23] MEDS: lisinopriL 20 MG TABLET PO SCH (09:15)
[2020-08-23] MEDS: ONDANSETRON HCL 4 MG/2 ML VIAL IVP PRN ×2 (12:38→20:51)
[2020-08-23] MEDS ORDERED: DIATR MEGLU/DIATRIZ SOD 30 ML SOLUTION PO ONE (12:45)
--- NOTE | 2020-08-23 19:20 | NUR ---
NURSE REPORT Report given to night nurse Gaby to assume care of patient. Last pain med- Dilaudid 1 mg given at 1641. Patient stated "not due yet." Night nurse will medicate patient for pain. CT scan of abd done with oral and IV contrast. No plan mentioned.
--- NOTE | 2020-08-23 19:30 | NUR ---
OPENING NOTE: PATIENT IS AWAKE, ALERT AN ORIENTED X 4. REPORTS PAIN IN LOWER LEFT ABDOMEN, RATING HER PAIN 5/10. VITAL SIGNS ARE WITH NORMAL LIMITS. IVF INFUSING ORDERED RATE. NO SIGN OF INFILTRATION NOTED. RESPIRATION IS EVEN AND UNLABORED ON RA. SAFETY,FALL, AND SEIZURE PRECAUTIONS ARE IN PLACE. CALL LIGHT IS WITH PATIENT. WILL CONTINUE TO MONITOR.
--- NOTE | 2020-08-23 20:38 | NUR ---
MED PASS: PATIENT GIVEN SCHEDULED MEDS AND PAIN MED. PATIENT REPORTS FEELING NAUSEAS, ZOFRAN GIVEN TO PATIENT. NO S/S ACUTE DISTRESS NOTED. SAFETY,FALL, AND SEIZURE PRECAUTIONS ARE IN PLACE. WILL CONTINUE TO MONITOR.
--- NOTE | 2020-08-23 23:00 | NUR ---
RN ROUNDS: PATIENT ASLEEP. RESPIRATION IS EVEN AND UNLABORED. IVF INFUSING ORDERED RATE. SAFETY,FALL, AND SEIZURE PRECAUTIONS ARE IN PLACE. CALL LIGHT IS WITH PATIENT. WILL CONTINUE TO MONITOR.
[2020-08-24 00:22] VITALS: BP_SYST 107
[2020-08-24] MEDS: HYDROmorphone 1 MG INJ. 1 MG/ML AMPUL IVP PRN ×4 (01:25→18:24)
--- NOTE | 2020-08-24 01:30 | NUR ---
PAIN MED: PATIENT REPORTS SHARP PAIN IN LOWER LEFT ABDOMEN, PAIN MED ADMINISTERED, MED INDICATION AND SIDE EFFECTS DISCUSSED WITH PATIENT. PATIENT VERBALIZED UNDERSTANDING. ALL SAFETY MEASURES MAINTAINED. CALL LIGHT IS WITH PATIENT. WILL REASSESS THE PAIN LEVEL.
[2020-08-24] MEDS: NACL 0.9% 1,000 ML IV SCH ×2 (05:56→15:08)
[2020-08-24] MEDS: cefTRIAXone 1 GM IVPB PREMIX 50 ML IV SCH (05:57)
[2020-08-24 06:14] LABS: BASOPHILS % (AUTO) 0.3 % (0.0-2.0); EOSINOPHILS % (AUTO) 0.5 % (0.0-4.0); HEMATOCRIT 31.5 % (36-48); HEMOGLOBIN 10.6 g/dL (12.0-16.0); LYMPHOCYTES % (AUTO) 33.9 % (20.5-51.5); MEAN CORPUSCULAR HEMOGLOBIN 30 pg (27-31); MEAN CORPUSCULAR HGB CONC 34 % (32-36); MEAN CORPUSCULAR VOLUME 88 fL (79.0-98.0); MONOCYTES # (AUTO) 0.5 K/uL (0.0-1.0); MONOCYTES % (AUTO) 8.3 % (1.7-9.3); NEUTROPHILS # (AUTO) 3.4 K/uL (1.8-7.7); PLATELET COUNT (AUTO) 282 K/uL (130-430); RED CELL DISTRIBUTION WIDTH 13.7 % (9.0-15.0); WHITE BLOOD COUNT (AUTO) 5.9 K/uL (4.8-10.8)
[2020-08-24 06:49] LABS: ALBUMIN 2.9 g/dL (3.4-4.8); CALCIUM 7.8 mg/dL (8.4-11.0); CREATININE 0.55 mg/dL (0.55-1.30); POTASSIUM 3.6 mmol/L (3.5-5.1); TOTAL BILIRUBIN 0.3 mg/dL (0.0-1.0)
--- NOTE | 2020-08-24 07:08 | NUR ---
CLOSING NOTE: PATIENT IS AWAKE, ALERT AND ORIENTED X4. BREATHING IS EVEN AND UNLABORED. IVF INFUSING ORDERED RATE. NO S/S ACUTE DISTRESS NOTED. ALL NEEDS MET THROUGH OUT THE SHIFT. SAFETY, FALL, AND SEIZURE PRECAUTIONS ARE IN PLACE. CALL LIGHT IS WITH PATIENT. WILL ENDORSE PATIENT CARE TO DAY SHIFT RN.
[2020-08-24] MEDS: levETIRAcetam 500 MG TABLET PO SCH (08:10)
[2020-08-24] MEDS: lisinopriL 20 MG TABLET PO SCH (08:10)
[2020-08-24] MEDS: PANTOPRAZOLE SODIUM 40 MG/VIAL (PROTONIX) IVP SCH (08:10)
--- NOTE | 2020-08-24 08:10 | NUR ---
Opening note patient resting in bed, a/ox4, states she has left lower quadrant abdominal pain, assessment complete, educated patient on plan of care and call light system and to call for assistance, she verbalized understanding, educated patient on scheduled and PRN medication, she verbalized understanding and tolerated well, IV line is patent and infusing well, continuing to monitor patient, bed in lowest position, three side rails up, call light within reach, fall, aspiration and seizure precautions in place.
[2020-08-24] MEDS: ONDANSETRON HCL 4 MG/2 ML VIAL IVP PRN (08:11)
[2020-08-24 08:22] VITALS: BP_SYST 113
[2020-08-24] MEDS: ALPRAZolam 0.25 MG TABLET PO SCH (09:00)
--- NOTE | 2020-08-24 10:00 | NUR ---
RN rounds patient resting in bed, eyes closed, breathing is even and unlabored, no signs of distress, easy to wake, patient states abdominal pain mild but tolerable at this time, no other needs at this time, continuing to monitor, IV line is patent and infusing well, call light within reach, bed in lowest position, two side rails up, fall, aspiration and seizure precautions in place.
--- NOTE | 2020-08-24 11:15 | NUR ---
RN rounds patient resting in bed, eyes closed, breathing is even and unlabored, no signs of distress, easy to wake, informed patient that her diet has been advanced, she verbalized understanding, no other needs at this time, continuing to monitor, IV line is patent and infusing well, call light within reach, bed in lowest position, two side rails up, fall, aspiration and seizure precautions in place.
[2020-08-24 12:05] VITALS: BP_SYST 102
--- NOTE | 2020-08-24 13:22 | NUR ---
Opening note patient resting in bed, states she has left lower quadrant abdominal pain, educated patient on PRN medication, she verbalized understanding and tolerated well, IV line is patent and infusing well, continuing to monitor patient, bed in lowest position, three side rails up, call light within reach, fall, aspiration and seizure precautions in place. Addendum: 08/24/20 at 1412 by Alec Lemus RN RN rounds/Pain*
[2020-08-24] MEDS ORDERED: METR500T PO (14:35)
[2020-08-24] MEDS ORDERED: LEVO500T89 PO (14:35)
--- NOTE | 2020-08-24 15:11 | NUR ---
RN rounds patient resting in bed, eyes closed, breathing is even and unlabored, no signs of distress, easy to wake, IVF hung and infusing well, IV line is patent and infusing well, patient updated on diet advancement and potential discharge home tonight, she verbalized understanding, bed in lowest position, two side rails up, call light within reach, fall and aspiration precautions in place.
[2020-08-24 16:10] VITALS: BP_SYST 99
--- NOTE | 2020-08-24 17:12 | NUR ---
RN rounds patient resting in bed, awake, denies pain, anxious about going home tonight, asking for anti-anxiety medication, educated on PRN medication uses and potential side effects, she verbalized understanding, IV line is patent and infusing well, no other needs at this time, continuing to monitor, call light within reach, bed in lowest position, two side rails up, fall, aspiration and seizure precautions in place.
--- NOTE | 2020-08-24 18:28 | NUR ---
RN rounds/Pain patient resting in bed, states she has left lower quadrant abdominal pain, educated patient on PRN medication, she verbalized understanding and tolerated well, IV line is patent and infusing well, continuing to monitor patient, bed in lowest position, three side rails up, call light within reach, fall, aspiration and seizure precautions in place. Educated patient that she will need to be monitored for at least one hour post pain medication administration prior to discharge home, she verbalized understanding. Denies nausea post dinner.
--- NOTE | 2020-08-24 18:55 | NUR ---
Closing note patient resting in bed, awake, denies pain, no distress, all needs met, will endorse report and discharge home to [facility] shift nurse, bed in lowest position, three side rails up, call light within reach, fall, aspiration and seizure precautions in place.
[2020-08-24 19:57] VITALS: BP_SYST 102
--- NOTE | 2020-08-24 20:35 | NUR ---
D/C Patient Home Patient given medication reconciliation form and D/C instructions. Exit Care provided. Patient verbalized understanding. Ambulatory with steady gait for discharge to home. Patient in stable condition, VSS, ID band removed. IV catheter removed, intact and dressing applied, no active bleeding. already has Rx. Patient educated on pain management. Home meds returned from pharmacy. All belongings sent with patient.
== END 2020-08-24 20:35 | disposition home or self-care (01) | DRG 251 ==
LOC: SED 20:21 → SMU 08-23 01:19 → OBSVTOIN 08-23 09:36
PROVIDERS: ADMIT Internal Medicine Hospice and Palliative Medicine; ATTEND Internal Medicine Hospice and Palliative Medicine
DX: R10.9 Unspecified abdominal pain (principal); I10 Essential (primary) hypertension; M79.7 Fibromyalgia; J45.909 Unspecified asthma, uncomplicated; F41.9 Anxiety disorder, unspecified; N83.209 Unspecified ovarian cyst, unspecified side; G40.909 Epilepsy, unspecified, not intractable, without status epilepticus; M06.9 Rheumatoid arthritis, unspecified; Z20.828 Contact with and (suspected) exposure to other viral communicable diseases; K62.5 Hemorrhage of anus and rectum; Z85.41 Personal history of malignant neoplasm of cervix uteri; Z90.710 Acquired absence of both cervix and uterus; Z93.3 Colostomy status; Z79.899 Other long term (current) drug therapy
CPT/HCPCS: 36415; 76830-TC; 76857; 80053; 81000-TC; 83605; 84484; 85025; 85610-TC; 85730-TC; 87040-TC; 87086; 96361; 96374; 96375; 96376; 99285; C9113; G0378; J0696; J1170; J1200; J1885; J1953; J2060; J2270; J2405; J7030; Q9964; Q9967

== ENCOUNTER 2020-10-21 14:09 | Emergency (ER) | payer MEDICAID, SELFPAY ==
[~2020-10-21] VITALS: Ht 160 cm; Wt 95.7 kg
[~2020-10-21 14:09] MED LIST changes: -GABA-776 PO; +LEVO500T89 PO; +METR500T PO
[2020-10-21 14:10] VITALS: BP_SYST 108
--- NOTE | 2020-10-21 14:33 | NUR ---
Patient to ER fast track 1 for evaluation. Side rails up.
--- NOTE | 2020-10-21 14:34 | NUR ---
Patient came from home for evaluation of for what she believes is diverticulitis. Patient reports severe lower abdominal pain radiating down to her vagina x3 days, nausea, and soft stool.
--- NOTE | 2020-10-21 14:36 | NUR ---
Patient to [facility] for evaluation. Side rails up.
--- NOTE | 2020-10-21 14:38 | NUR ---
ER Dr. Prince at bedside examining patient.
[2020-10-21] MEDS ORDERED: MORPHINE 4 MG/ML INJ. SYRINGE IVP ONE ×2 (14:45→16:00)
[2020-10-21] MEDS ORDERED: NACL 0.9% IV ONE (14:45)
[2020-10-21] MEDS ORDERED: ONDANSETRON HCL 4 MG/2 ML VIAL IVP ONE ×2 (14:45→16:00)
[2020-10-21] MEDS ORDERED: metroNIDAZOLE 500 mg/NS 100 ML IV ONE (14:45)
[2020-10-21] MEDS ORDERED: LEVOFLOXACIN 500 MG/D5W 100 ML IV ONE (14:45)
[2020-10-21] MEDS ORDERED: GABA-776 PO (14:54)
[2020-10-21] MEDS ORDERED: METR500T PO (14:54)
--- NOTE | 2020-10-21 14:54 | NUR ---
Medication reconciliation completed with information provided by patient. Any prior medication reconciliation on file was reviewed and corrected.
--- NOTE | 2020-10-21 14:57 | NUR ---
Patient transported to radiology via wheelchair, accompanied by p 3 armament/ordnance ima technician.
--- NOTE | 2020-10-21 15:05 | NUR ---
Returned from radiology, back to [facility].
[2020-10-21 15:44] LABS: BASOPHILS % (AUTO) 0.4 % (0.0-2.0); EOSINOPHILS # (AUTO) 0.1 K/uL (0.0-0.4); HEMATOCRIT 36.4 % (36-48); HEMOGLOBIN 12.6 g/dL (12.0-16.0); LYMPHOCYTES # (AUTO) 2.9 K/uL (1.0-5.5); LYMPHOCYTES % (AUTO) 45.6 % (20.5-51.5); MEAN CORPUSCULAR HEMOGLOBIN 30 pg (27-31); MEAN CORPUSCULAR HGB CONC 35 % (32-36); MEAN CORPUSCULAR VOLUME 86 fL (79.0-98.0); MONOCYTES # (AUTO) 0.7 K/uL (0.0-1.0); MONOCYTES % (AUTO) 10.5 % (1.7-9.3); NEUTROPHILS # (AUTO) 2.7 K/uL (1.8-7.7); NEUTROPHILS % (AUTO) 42.5 % (40.0-70.0); PLATELET COUNT (AUTO) 316 K/uL (130-430); RED BLOOD CELL COUNT(AUTO) 4.21 MIL/uL (4.2-6.2); RED CELL DISTRIBUTION WIDTH 15.6 % (9.0-15.0); WHITE BLOOD COUNT (AUTO) 6.3 K/uL (4.8-10.8)
[2020-10-21 16:00] LABS: CALCIUM 8.5 mg/dL (8.4-11.0); CREATININE 0.95 mg/dL (0.55-1.30); POTASSIUM 3.6 mmol/L (3.5-5.1)
[2020-10-21 16:05] LABS: ALBUMIN 3.6 g/dL (3.4-4.8); TOTAL BILIRUBIN 0.1 mg/dL (0.0-1.0)
[2020-10-21] MEDS ORDERED: MOM PO (17:08)
[2020-10-21 17:13] VITALS: BP_SYST 108
--- NOTE | 2020-10-21 17:13 | NUR ---
Patient given written and verbal discharge instructions and verbalizes understanding. ER MD discussed with patient the results and treatment provided. Patient in stable condition. ID arm band removed. IV catheter removed intact and dressing applied, no active bleeding. Rx of milk of magnesium given. Patient educated on pain management and to follow up with PMD. Pain Scale 5/10, Dr. Prince is aware. Opportunity for questions provided and answered. Medication side effect fact sheet provided.
== END 2020-10-21 17:13 | disposition home or self-care (01) ==
LOC: SED 14:09
DX: K59.00 Constipation, unspecified (principal); J45.909 Unspecified asthma, uncomplicated; F41.9 Anxiety disorder, unspecified; Z79.899 Other long term (current) drug therapy; Z20.828 Contact with and (suspected) exposure to other viral communicable diseases
CPT/HCPCS: 36415; 74176; 76376; 80053; 85025; 87040; 87426; 96365; 96368; 96375; 96376; 99284; J1956; J2270; J2405; J3490; J7030

== ENCOUNTER 2021-01-07 10:28 | Emergency (ER) | payer MEDICAID, SELFPAY ==
[~2021-01-07] VITALS: Ht 160 cm; Wt 95.3 kg
[~2021-01-07 10:28] MED LIST changes: +GABA-776 PO; -LEVO500T89 PO; +MOM PO; -ONDA4TAB5 PO
[2021-01-07 10:37] VITALS: BP_SYST 125
[2021-01-07] MEDS ORDERED: NACL 0.9% 1,000 ML IV ONE (11:15)
[2021-01-07] MEDS ORDERED: ONDANSETRON HCL 4 MG/2 ML VIAL IVP ONE (11:15)
[2021-01-07] MEDS ORDERED: MORPHINE 4 MG/ML INJ. SYRINGE IVP ONE (11:15)
[2021-01-07 11:16] LABS: BASOPHILS % (AUTO) 0.8 % (0.0-2.0); EOSINOPHILS # (AUTO) 0.1 K/uL (0.0-0.4); EOSINOPHILS % (AUTO) 0.8 % (0.0-4.0); HEMATOCRIT 35.7 % (36-48); HEMOGLOBIN 11.8 g/dL (12.0-16.0); LYMPHOCYTES # (AUTO) 2.6 K/uL (1.0-5.5); LYMPHOCYTES % (AUTO) 41.4 % (20.5-51.5); MEAN CORPUSCULAR HEMOGLOBIN 30 pg (27-31); MEAN CORPUSCULAR HGB CONC 33 % (32-36); MEAN CORPUSCULAR VOLUME 90 fL (79.0-98.0); MONOCYTES # (AUTO) 0.5 K/uL (0.0-1.0); MONOCYTES % (AUTO) 7.6 % (1.7-9.3); NEUTROPHILS # (AUTO) 3.1 K/uL (1.8-7.7); NEUTROPHILS % (AUTO) 49.4 % (40.0-70.0); PLATELET COUNT (AUTO) 283 K/uL (130-430); RED BLOOD CELL COUNT(AUTO) 3.95 MIL/uL (4.2-6.2); RED CELL DISTRIBUTION WIDTH 14.5 % (9.0-15.0); WHITE BLOOD COUNT (AUTO) 6.2 K/uL (4.8-10.8)
[2021-01-07 11:22] LABS: BILIRUBIN,URINE NEGATIVE (NEGATIVE); BLOOD, URINE NEGATIVE (NEGATIVE); CLARITY/URINE CLEAR (CLEAR); COLOR,URINE YELLOW (YELLOW); GLUCOSE,URINE NEGATIVE (NEGATIVE); KETONES,URINE NEGATIVE (NEGATIVE); LEUKOCYTE ESTERASE ,URINE NEGATIVE (NEGATIVE); NITRITE, URINE NEGATIVE (NEGATIVE); PROTEIN URINE NEGATIVE (NEGATIVE); UROBILINOGEN,URINE 0.2 (0.2-1.0)
[2021-01-07 11:25] LABS: CALCIUM 8.2 mg/dL (8.4-11.0); CREATININE 0.78 mg/dL (0.55-1.30)
[2021-01-07 11:31] LABS: ALBUMIN 3.2 g/dL (3.4-4.8); TOTAL BILIRUBIN 0.2 mg/dL (0.0-1.0)
[2021-01-07] MEDS ORDERED: CIPR-211 PO (12:19)
[2021-01-07] MEDS ORDERED: METR500T PO (12:20)
[2021-01-07 12:42] VITALS: BP_SYST 105
== END 2021-01-07 12:43 | disposition home or self-care (01) ==
LOC: SED 10:28
DX: K57.92 Diverticulitis of intestine, part unspecified, without perforation or abscess without bleeding (principal); J45.909 Unspecified asthma, uncomplicated; F41.9 Anxiety disorder, unspecified; Z79.899 Other long term (current) drug therapy; Z20.822 Contact with and (suspected) exposure to COVID-19
CPT/HCPCS: 36415; 74176; 80053; 81003; 81025; 83690; 85025; 87426; 96374; 96375; 99284; J2270; J2405; J7030

== ENCOUNTER 2021-01-12 06:51 | Emergency (ER) | payer MEDICAID, SELFPAY ==
[~2021-01-12] VITALS: Ht 160 cm; Wt 96.2 kg
[~2021-01-12 06:51] MED LIST changes: +CIPR500T5 PO
[2021-01-12 07:00] VITALS: BP_SYST 134
[2021-01-12] MEDS ORDERED: NACL 0.9% 1,000 ML IV ONE (07:30)
[2021-01-12] MEDS ORDERED: MORPHINE 4 MG/ML INJ. SYRINGE IM ONE (07:30)
[2021-01-12] MEDS ORDERED: ONDANSETRON HCL 4 MG/2 ML VIAL IVP ONE (07:30)
[2021-01-12 07:36] LABS: BASOPHILS % (AUTO) 0.4 % (0.0-2.0); EOSINOPHILS # (AUTO) 0.1 K/uL (0.0-0.4); EOSINOPHILS % (AUTO) 0.6 % (0.0-4.0); HEMATOCRIT 36.6 % (36-48); HEMOGLOBIN 12.2 g/dL (12.0-16.0); LYMPHOCYTES # (AUTO) 2.8 K/uL (1.0-5.5); MEAN CORPUSCULAR HEMOGLOBIN 30 pg (27-31); MEAN CORPUSCULAR HGB CONC 33 % (32-36); MEAN CORPUSCULAR VOLUME 90 fL (79.0-98.0); MONOCYTES # (AUTO) 0.8 K/uL (0.0-1.0); MONOCYTES % (AUTO) 7.8 % (1.7-9.3); NEUTROPHILS # (AUTO) 6.4 K/uL (1.8-7.7); NEUTROPHILS % (AUTO) 63.2 % (40.0-70.0); PLATELET COUNT (AUTO) 307 K/uL (130-430); RED BLOOD CELL COUNT(AUTO) 4.08 MIL/uL (4.2-6.2); WHITE BLOOD COUNT (AUTO) 10.1 K/uL (4.8-10.8)
[2021-01-12 08:12] LABS: CALCIUM 8.8 mg/dL (8.4-11.0); CREATININE 0.77 mg/dL (0.55-1.30); POTASSIUM 3.7 mmol/L (3.5-5.1)
[2021-01-12 08:18] LABS: ALBUMIN 3.3 g/dL (3.4-4.8); TOTAL BILIRUBIN 0.5 mg/dL (0.0-1.0)
[2021-01-12] MEDS ORDERED: MORPHINE 2 MG/ML INJ. SYRINGE IVP ONE (08:30)
[2021-01-12] MEDS ORDERED: HALOPERIDOL LACTATE 5 MG/ML VIAL IVP ONE (09:45)
[2021-01-12] MEDS ORDERED: LORazepam 2 MG/ML VIAL IVP ONE (09:45)
[2021-01-12] MEDS ORDERED: DIPHENHYDRAMINE INJ 50 MG/ML VIAL IVP ONE (09:45)
[2021-01-12 09:50] LABS: BILIRUBIN,URINE NEGATIVE (NEGATIVE); CLARITY/URINE CLEAR (CLEAR); COLOR,URINE YELLOW (YELLOW); GLUCOSE,URINE NEGATIVE (NEGATIVE); KETONES,URINE NEGATIVE (NEGATIVE); LEUKOCYTE ESTERASE ,URINE 1+ (NEGATIVE); NITRITE, URINE NEGATIVE (NEGATIVE); PROTEIN URINE NEGATIVE (NEGATIVE); UROBILINOGEN,URINE 0.2 (0.2-1.0)
[2021-01-12 09:52] LABS: BLOOD, URINE TRACE (NEGATIVE)
[2021-01-12 09:57] LABS: BACTERIA,URINE FEW /HPF (None Seen); MUCUS,URINE 1+ /LPF (None Seen); RBC,URINE 0-3 /HPF (0-3)
[2021-01-12 10:00] LABS: BARBITURATE, URINE NEGATIVE (NEG <=200); BENZODIAZEPINE, URINE POSITIVE (NEG <=150); CANNABINOID, URINE NEGATIVE (NEG <=50); COCAINE, URINE NEGATIVE (NEG <=150); METHAMPHETAMINES SCREEN,URINE NEGATIVE (NEG <=500); OPIATE, URINE NEGATIVE (NEG <=100); PHENCYCLIDINE SCREEN,URINE NEGATIVE (NEG <=25); UR TRICYCLIC ANTIDEPRESSANTS NEGATIVE (NEG <=300); URINE AMPHETAMINE NEGATIVE (NEG <=500); URINE METHADONE NEGATIVE (NEG <=200); URINE OXYCODONE SCREEN NEGATIVE (NEG <=100); URINE PROPOXYPHENE SCREEN NEGATIVE (NEG <=300)
[2021-01-12] MEDS ORDERED: IBUP-1971 PO (10:55)
[2021-01-12 11:11] VITALS: BP_SYST 122
== END 2021-01-12 11:11 | disposition home or self-care (01) ==
LOC: SED 06:51
DX: R10.2 Pelvic and perineal pain (principal); J45.909 Unspecified asthma, uncomplicated; F41.9 Anxiety disorder, unspecified; Z79.899 Other long term (current) drug therapy
CPT/HCPCS: 76856; 36415; 80053; 80307; 81000; 83690; 85025; 87086; 96361; 96374; 96375; 96376; 99284; J1200; J1630; J2060; J2270 ×2; J2405; J7030

== ENCOUNTER 2021-03-15 00:04 | Emergency (ER) | payer MEDICAID, SELFPAY ==
[~2021-03-15] VITALS: Ht 160 cm; Wt 96.2 kg
[2021-03-15 00:04] VITALS: BP_SYST 114
[~2021-03-15 00:04] MED LIST changes: +IBUP-1971 PO
[2021-03-15 01:33] LABS: BILIRUBIN,URINE NEGATIVE (NEGATIVE); BLOOD, URINE 1+ (NEGATIVE); COLOR,URINE YELLOW (YELLOW); GLUCOSE,URINE NEGATIVE (NEGATIVE); KETONES,URINE NEGATIVE (NEGATIVE); LEUKOCYTE ESTERASE ,URINE NEGATIVE (NEGATIVE); NITRITE, URINE NEGATIVE (NEGATIVE); PH,URINE 5.5 (5.0-8.0); PROTEIN URINE NEGATIVE (NEGATIVE); UROBILINOGEN,URINE 0.2 (0.2-1.0)
[2021-03-15 01:34] LABS: CALCIUM 8.8 mg/dL (8.4-11.0); CREATININE 0.8 mg/dL (0.55-1.30); POTASSIUM 3.4 mmol/L (3.5-5.1)
[2021-03-15 01:35] LABS: CLARITY/URINE SLIGHTLY CLOUDY (CLEAR)
[2021-03-15 01:37] LABS: BASOPHILS % (AUTO) 0.4 % (0.0-2.0); EOSINOPHILS % (AUTO) 0.1 % (0.0-4.0); HEMATOCRIT 34.7 % (36-48); HEMOGLOBIN 11.7 g/dL (12.0-16.0); LYMPHOCYTES # (AUTO) 3.3 K/uL (1.0-5.5); LYMPHOCYTES % (AUTO) 39.9 % (20.5-51.5); MEAN CORPUSCULAR HEMOGLOBIN 30 pg (27-31); MEAN CORPUSCULAR HGB CONC 34 % (32-36); MEAN CORPUSCULAR VOLUME 90 fL (79.0-98.0); MONOCYTES # (AUTO) 0.7 K/uL (0.0-1.0); MONOCYTES % (AUTO) 8.8 % (1.7-9.3); NEUTROPHILS # (AUTO) 4.2 K/uL (1.8-7.7); NEUTROPHILS % (AUTO) 50.8 % (40.0-70.0); PLATELET COUNT (AUTO) 320 K/uL (130-430); RED BLOOD CELL COUNT(AUTO) 3.88 MIL/uL (4.2-6.2); RED CELL DISTRIBUTION WIDTH 14.3 % (9.0-15.0); WHITE BLOOD COUNT (AUTO) 8.3 K/uL (4.8-10.8)
[2021-03-15] MEDS: NACL 0.9% 1,000 ML IV ONE (01:37)
[2021-03-15] MEDS: DEXAMETHASONE SOD PHOSPHATE 4 MG/ML VIAL IVP ONE (01:38)
[2021-03-15] MEDS: PROCHLORPERAZINE EDISYLATE 10 MG/2 ML VIAL IVP ONE (01:38)
[2021-03-15] MEDS: MORPHINE 4 MG INJ. 4 MG/ML VIAL IVP ONE (01:39)
[2021-03-15 01:40] LABS: ALBUMIN 3.5 g/dL (3.4-4.8); TOTAL BILIRUBIN 0.2 mg/dL (0.0-1.0)
[2021-03-15 01:43] LABS: BACTERIA,URINE FEW /HPF (None Seen); WBC,URINE 0-3 /HPF (0-3)
[2021-03-15] MEDS ORDERED: BUTA-280 PO (04:27)
[2021-03-15] MEDS ORDERED: METR-154 PO (04:27)
[2021-03-15] MEDS ORDERED: ACET1TAB23 PO (04:27)
[2021-03-15] MEDS ORDERED: LEVO750T45 PO (04:27)
[2021-03-15 04:42] VITALS: BP_SYST 107
== END 2021-03-15 04:42 | disposition home or self-care (01) ==
LOC: SED 00:04
DX: R10.32 Left lower quadrant pain (principal); R51.9 Headache, unspecified; J45.909 Unspecified asthma, uncomplicated; Z79.899 Other long term (current) drug therapy
CPT/HCPCS: 36415; 80053; 81000; 82962; 83690; 85025; 96361; 96374; 96375; 99284; J0780; J1100; J2270; J7030

== ENCOUNTER 2021-03-23 15:59 | Emergency (ER) | payer MEDICAID ==
[~2021-03-23] VITALS: Ht 160 cm; Wt 95.3 kg
[~2021-03-23 15:59] MED LIST changes: +BUTA-280 PO; +LEVO750T45 PO; +METR-154 PO
[2021-03-23 16:09] VITALS: BP_SYST 153
[2021-03-23] MEDS ORDERED: MORPHINE 4 MG INJ. 4 MG/ML VIAL IM ONE (16:45)
[2021-03-23] MEDS ORDERED: ONDANSETRON HCL 4 MG/2 ML VIAL ONE (16:59)
[2021-03-23 17:16] LABS: BASOPHILS % (AUTO) 0.3 % (0.0-2.0); EOSINOPHILS % (AUTO) 0.5 % (0.0-4.0); HEMATOCRIT 32.9 % (36-48); HEMOGLOBIN 11.2 g/dL (12.0-16.0); LYMPHOCYTES % (AUTO) 40.6 % (20.5-51.5); MEAN CORPUSCULAR HEMOGLOBIN 30 pg (27-31); MEAN CORPUSCULAR HGB CONC 34 % (32-36); MEAN CORPUSCULAR VOLUME 89 fL (79.0-98.0); MONOCYTES # (AUTO) 0.6 K/uL (0.0-1.0); MONOCYTES % (AUTO) 7.8 % (1.7-9.3); NEUTROPHILS # (AUTO) 3.7 K/uL (1.8-7.7); NEUTROPHILS % (AUTO) 50.8 % (40.0-70.0); PLATELET COUNT (AUTO) 273 K/uL (130-430); RED BLOOD CELL COUNT(AUTO) 3.68 MIL/uL (4.2-6.2); RED CELL DISTRIBUTION WIDTH 14.6 % (9.0-15.0); WHITE BLOOD COUNT (AUTO) 7.3 K/uL (4.8-10.8)
[2021-03-23 17:26] LABS: CALCIUM 8.4 mg/dL (8.4-11.0); CREATININE 0.8 mg/dL (0.55-1.30); POTASSIUM 3.9 mmol/L (3.5-5.1)
[2021-03-23 17:46] LABS: BILIRUBIN,URINE NEGATIVE (NEGATIVE); CLARITY/URINE CLEAR (CLEAR); COLOR,URINE YELLOW (YELLOW); GLUCOSE,URINE NEGATIVE (NEGATIVE); KETONES,URINE NEGATIVE (NEGATIVE); LEUKOCYTE ESTERASE ,URINE NEGATIVE (NEGATIVE); NITRITE, URINE NEGATIVE (NEGATIVE); PROTEIN URINE NEGATIVE (NEGATIVE); UROBILINOGEN,URINE 0.2 (0.2-1.0)
[2021-03-23 17:49] LABS: ALBUMIN 3.1 g/dL (3.4-4.8); TOTAL BILIRUBIN 0.1 mg/dL (0.0-1.0)
[2021-03-23 17:54] LABS: BLOOD, URINE TRACE (NEGATIVE)
[2021-03-23 17:56] LABS: BACTERIA,URINE FEW /HPF (None Seen); RBC,URINE 0-3 /HPF (0-3); WBC,URINE 0-3 /HPF (0-3)
[2021-03-23 17:57] LABS: MUCUS,URINE None Seen /LPF (None Seen)
[2021-03-23] MEDS ORDERED: NACL 0.9% 1,000 ML IV ONE (18:30)
[2021-03-23] MEDS ORDERED: MORPHINE 2 MG/ML INJ. SYRINGE IVP ONE (18:30)
[2021-03-23] MEDS ORDERED: KETOROLAC TROMETHAMINE 30 MG VIAL IVP ONE (18:30)
[2021-03-23] MEDS ORDERED: KETOROLAC TROMETHAMINE 30 MG VIAL ONE (18:33)
[2021-03-23 20:04] VITALS: BP_SYST 97
== END 2021-03-23 20:04 | disposition home or self-care (01) ==
LOC: SED 15:59
DX: R10.32 Left lower quadrant pain (principal); R11.2 Nausea with vomiting, unspecified; J45.909 Unspecified asthma, uncomplicated; Z79.899 Other long term (current) drug therapy
CPT/HCPCS: 36415; 74021; 74177; 76376; 76830; 76857; 80053; 81000; 81025; 83690; 84702; 85025; 96361; 96374; 96375; 96376; 99285; J1885; J2270 ×2; J2405; J7030; Q9967

== ENCOUNTER 2021-05-06 10:58 | Emergency (ER) | payer MEDICAID ==
[~2021-05-06] VITALS: Ht 160 cm; Wt 94.3 kg
--- NOTE | 2021-05-06 11:05 | NUR ---
Placed in room 7 . Placed on panel monitor, blood pressure machine and pulse oximeter. To gown for exam. Side rails up. Report given to JYADON Luna.
[2021-05-06 11:09] VITALS: BP_SYST 120
--- NOTE | 2021-05-06 11:10 | NUR ---
Pt came to ER with 10/10 abdominal pain. Pt has history of CA, hysterectomy, colostomy with reversal. [place] [facility] [place], c/o pain, awaiting MD ledezma
[2021-05-06] MEDS ORDERED: MORPHINE 4 MG INJ. 4 MG/ML VIAL IM ONE (11:15)
[2021-05-06] MEDS ORDERED: ONDANSETRON 4 MG ODT TAB PO ONE (11:15)
--- NOTE | 2021-05-06 11:15 | NUR ---
ER at bedside examining patient.
[2021-05-06] MEDS ORDERED: NACL 0.9% 1,000 ML IV ONE (11:30)
[2021-05-06] MEDS ORDERED: ONDANSETRON HCL 4 MG/2 ML VIAL IVP ONE (11:30)
[2021-05-06] MEDS ORDERED: MORPHINE 4 MG INJ. 4 MG/ML VIAL IVP ONE ×2 (11:30→12:30)
[2021-05-06 11:36] LABS: BILIRUBIN,URINE NEGATIVE (NEGATIVE); COLOR,URINE YELLOW (YELLOW); GLUCOSE,URINE NEGATIVE (NEGATIVE); KETONES,URINE NEGATIVE (NEGATIVE); LEUKOCYTE ESTERASE ,URINE 2+ (NEGATIVE); NITRITE, URINE NEGATIVE (NEGATIVE); PH,URINE 6.5 (5.0-8.0); PROTEIN URINE NEGATIVE (NEGATIVE); UROBILINOGEN,URINE 0.2 (0.2-1.0)
[2021-05-06 11:49] LABS: BASOPHILS % (AUTO) 0.8 % (0.0-2.0); EOSINOPHILS # (AUTO) 0.1 K/uL (0.0-0.4); HEMATOCRIT 37.3 % (36-48); HEMOGLOBIN 12.2 g/dL (12.0-16.0); LYMPHOCYTES # (AUTO) 2.8 K/uL (1.0-5.5); LYMPHOCYTES % (AUTO) 44.1 % (20.5-51.5); MEAN CORPUSCULAR HEMOGLOBIN 29 pg (27-31); MEAN CORPUSCULAR HGB CONC 33 % (32-36); MEAN CORPUSCULAR VOLUME 90 fL (79.0-98.0); MONOCYTES # (AUTO) 0.5 K/uL (0.0-1.0); MONOCYTES % (AUTO) 7.4 % (1.7-9.3); NEUTROPHILS # (AUTO) 2.9 K/uL (1.8-7.7); NEUTROPHILS % (AUTO) 46.7 % (40.0-70.0); PLATELET COUNT (AUTO) 273 K/uL (130-430); RED BLOOD CELL COUNT(AUTO) 4.16 MIL/uL (4.2-6.2); WHITE BLOOD COUNT (AUTO) 6.3 K/uL (4.8-10.8)
[2021-05-06 11:54] LABS: BLOOD, URINE TRACE (NEGATIVE); CLARITY/URINE HAZY (CLEAR)
[2021-05-06 11:55] LABS: BACTERIA,URINE RARE /HPF (None Seen)
[2021-05-06 12:00] LABS: CREATININE 0.67 mg/dL (0.55-1.30)
--- NOTE | 2021-05-06 12:05 | NUR ---
pt asleep in [facility] at this time
[2021-05-06 12:06] LABS: ALBUMIN 3.1 g/dL (3.4-4.8); TOTAL BILIRUBIN 0.2 mg/dL (0.0-1.0)
[2021-05-06] MEDS ORDERED: ONDA4TAB5 PO (13:34)
[2021-05-06] MEDS ORDERED: HYDR-3917 PO (13:34)
[2021-05-06] MEDS ORDERED: CIPR500T5 PO (13:34)
[2021-05-06] MEDS ORDERED: IBUP-1971 PO (13:34)
[2021-05-06 13:45] VITALS: BP_SYST 128
--- NOTE | 2021-05-06 13:46 | NUR ---
Patient given written and verbal discharge instructions and verbalizes understanding. ER MD discussed with patient the results and treatment provided. Patient in stable condition. ID arm band removed. IV catheter removed intact and dressing applied, no active bleeding. Rx of Zofran, [place], Ibuprofen, Cipro given. Patient educated on pain management and to follow up with PMD. Pain Scale 0/10. Opportunity for questions provided and answered. Medication side effect fact sheet provided.
== END 2021-05-06 13:46 | disposition home or self-care (01) ==
LOC: SED 12:29
DX: N39.0 Urinary tract infection, site not specified (principal); I10 Essential (primary) hypertension; J45.909 Unspecified asthma, uncomplicated; Z79.899 Other long term (current) drug therapy
CPT/HCPCS: 36415; 74176; 76376; 80053; 81000; 83690; 85025; 87086; 96361; 96374; 96375; 96376; 99284; J2270; J2405; J7030; Q0162

== ENCOUNTER 2021-05-14 14:33 | Inpatient (IN) | payer MEDICAID, SELFPAY ==
[~2021-05-14] VITALS: Ht 160 cm; Wt 95.3 kg
[~2021-05-14 14:33] MED LIST changes: +HYDR-3917 PO; +ONDA4TAB5 PO
[2021-05-14 15:22] VITALS: BP_SYST 128
--- NOTE | 2021-05-14 15:26 | NUR ---
Patient triaged and placed in waiting room. VSS and patient appears in no acute distress at this time. Accompanied by self , awaiting available bed, and MD notified of need for MSE.
[2021-05-14 16:21] LABS: BASOPHILS % (AUTO) 0.4 % (0.0-2.0); EOSINOPHILS # (AUTO) 0.1 K/uL (0.0-0.4); EOSINOPHILS % (AUTO) 2.3 % (0.0-4.0); HEMATOCRIT 35.7 % (36-48); HEMOGLOBIN 11.8 g/dL (12.0-16.0); LYMPHOCYTES # (AUTO) 1.9 K/uL (1.0-5.5); LYMPHOCYTES % (AUTO) 49.7 % (20.5-51.5); MEAN CORPUSCULAR HEMOGLOBIN 30 pg (27-31); MEAN CORPUSCULAR HGB CONC 33 % (32-36); MEAN CORPUSCULAR VOLUME 90 fL (79.0-98.0); MONOCYTES # (AUTO) 0.3 K/uL (0.0-1.0); MONOCYTES % (AUTO) 8.6 % (1.7-9.3); NEUTROPHILS # (AUTO) 1.5 K/uL (1.8-7.7); PLATELET COUNT (AUTO) 307 K/uL (130-430); RED BLOOD CELL COUNT(AUTO) 3.96 MIL/uL (4.2-6.2); RED CELL DISTRIBUTION WIDTH 14.7 % (9.0-15.0); WHITE BLOOD COUNT (AUTO) 3.9 K/uL (4.8-10.8)
--- NOTE | 2021-05-14 16:22 | NUR ---
Patient to ER bed 08 to gown for evaluation. Side rails up.
--- NOTE | 2021-05-14 16:30 | NUR ---
Pt brought by self, A&Ox4, pt presents to ER with weakness, states she had 4 syncope episodes in the last couple days, pt has Hx of seizures, also c/o bruising on the skin, respirations even and unlabored, cap refill <3, VSS.
[2021-05-14 16:34] LABS: CALCIUM 8.3 mg/dL (8.4-11.0); CREATININE 0.68 mg/dL (0.55-1.30)
[2021-05-14 16:40] LABS: ALBUMIN 3.1 g/dL (3.4-4.8); TOTAL BILIRUBIN 0.2 mg/dL (0.0-1.0)
--- NOTE | 2021-05-14 16:45 | NUR ---
Pt off the unit for CT
[2021-05-14 16:50] LABS: BILIRUBIN,URINE NEGATIVE (NEGATIVE); BLOOD, URINE NEGATIVE (NEGATIVE); COLOR,URINE YELLOW (YELLOW); GLUCOSE,URINE NEGATIVE (NEGATIVE); KETONES,URINE NEGATIVE (NEGATIVE); LEUKOCYTE ESTERASE ,URINE NEGATIVE (NEGATIVE); NITRITE, URINE NEGATIVE (NEGATIVE); PROTEIN URINE NEGATIVE (NEGATIVE); UROBILINOGEN,URINE 0.2 (0.2-1.0)
[2021-05-14 16:54] LABS: CLARITY/URINE HAZY (CLEAR)
--- NOTE | 2021-05-14 16:56 | NUR ---
Orthostatic vital signs done. laying 104/53 hr 75 standing 113/88 hr 88
--- NOTE | 2021-05-14 16:58 | NUR ---
Pt returned from CT on stable condition
--- NOTE | 2021-05-14 17:07 | NUR ---
Pt A&Ox4, respirations even and unlabored, cap refill <3.
--- NOTE | 2021-05-14 17:07 | NUR ---
Report given to Claude INTERIANO
[2021-05-14] MEDS ORDERED: carisoprodoL 350 MG TABLET PO ONE (17:30)
[2021-05-14] MEDS ORDERED: levETIRAcetam 500 MG TABLET PO ONE (17:30)
--- NOTE | 2021-05-14 20:04 | NUR ---
Medication reconciliation completed with information provided by self . Any prior medication reconciliation on file was reviewed and corrected.
[2021-05-14] MEDS ORDERED: ACETAMINOPHEN 325 MG TABLET PO PRN (20:30)
[2021-05-14] MEDS ORDERED: LORazepam 2 MG/ML VIAL IVP PRN (20:30)
[2021-05-14] MEDS ORDERED: HYDROcodone/ACETAMIN 5-325 MG TAB (NORCO/ VICODIN) PO PRN (20:30)
[2021-05-14] MEDS ORDERED: NALOXONE HCL 0.4 MG/ML AMP (NARCAN) IVP PRN (20:30)
[2021-05-14] MEDS ORDERED: ALBUTEROL SULFATE 0.083% 2.5 MG/3 ML VIAL.NEB INH PRN (20:30)
[2021-05-14 20:34] VITALS: BP_SYST 104
--- NOTE | 2021-05-14 20:40 | NUR ---
Patient will be admitted to care of Dr Sam. Admitted to Tele unit. Will go to room 120B. Belongings list completed. Complete and up to date summary report printed. SBAR report to be given at bedside with opportunity for questions.
[2021-05-14] MEDS ORDERED: carisoprodoL 350 MG TABLET PO PRN (20:45)
[2021-05-14] MEDS ORDERED: ALPRAZolam 0.25 MG TABLET PO SCH (20:45)
--- NOTE | 2021-05-14 20:49 | NUR ---
ADMIT NOTE Received pt from ER to the floor with a diagnosis of recurrent syncope. Admission process initiated. patient oriented to pain management, safety and call light-teach back done.
[2021-05-14] MEDS: MORPHINE 4 MG INJ. 4 MG/ML VIAL IVP PRN (21:29)
[2021-05-14 21:31] VITALS: BP_SYST 114
[2021-05-14] MEDS: NACL 0.9% 1,000 ML IV SCH (21:33)
[2021-05-14] MEDS: levETIRAcetam 500 MG TABLET PO SCH (21:33)
--- NOTE | 2021-05-14 21:33 | NUR ---
IV ADMINISTRATION END TIME (Observation Patients ONLY): IV infusion of NS started at 2132 and ended at 732.
[2021-05-14] MEDS: PANTOPRAZOLE SODIUM 40 MG TAB PO SCH (21:38)
[2021-05-14] MEDS: LORazepam 2 MG/ML VIAL IVP PRN (21:41)
[2021-05-14 21:54] VITALS: BP_SYST 114
--- NOTE | 2021-05-15 | NUR ---
acknowledge lead simulation modeling engineer documentation.
[2021-05-15 00:14] VITALS: BP_SYST 109
[2021-05-15] MEDS: ONDANSETRON HCL 4 MG/2 ML VIAL IVP PRN ×2 (00:17→16:09)
[2021-05-15] MEDS: MORPHINE 4 MG INJ. 4 MG/ML VIAL IVP PRN ×5 (02:12→21:28)
--- NOTE | 2021-05-15 05:29 | NUR ---
REGARDING DR. CHAVIRA ME CONSULTATION I SENT HIM A MESSAGE ALREADY
[2021-05-15 06:11] LABS: BASOPHILS % (AUTO) 0.3 % (0.0-2.0); EOSINOPHILS # (AUTO) 0.1 K/uL (0.0-0.4); EOSINOPHILS % (AUTO) 1.5 % (0.0-4.0); HEMATOCRIT 30.5 % (36-48); HEMOGLOBIN 10.2 g/dL (12.0-16.0); LYMPHOCYTES # (AUTO) 2.4 K/uL (1.0-5.5); LYMPHOCYTES % (AUTO) 54.1 % (20.5-51.5); MEAN CORPUSCULAR HEMOGLOBIN 31 pg (27-31); MEAN CORPUSCULAR HGB CONC 34 % (32-36); MEAN CORPUSCULAR VOLUME 92 fL (79.0-98.0); MONOCYTES # (AUTO) 0.4 K/uL (0.0-1.0); MONOCYTES % (AUTO) 9.6 % (1.7-9.3); NEUTROPHILS # (AUTO) 1.6 K/uL (1.8-7.7); NEUTROPHILS % (AUTO) 34.5 % (40.0-70.0); PLATELET COUNT (AUTO) 277 K/uL (130-430); RED BLOOD CELL COUNT(AUTO) 3.33 MIL/uL (4.2-6.2); RED CELL DISTRIBUTION WIDTH 14.8 % (9.0-15.0); WHITE BLOOD COUNT (AUTO) 4.5 K/uL (4.8-10.8)
[2021-05-15] MEDS: NACL 0.9% 1,000 ML IV SCH ×2 (06:22→15:58)
--- NOTE | 2021-05-15 06:22 | NUR ---
IV ADMINISTRATION END TIME (Observation Patients ONLY): IV infusion of NS started at 06 and ended at 1622.
--- NOTE | 2021-05-15 06:28 | NUR ---
Closing note Resident sleeping, able to arouse verbally and tactile stimuli. On RA, non labored. AOX4, Left hand IV patent and intact, no complications noted. No complicate of distress at this time. Call light within reach, on safety/fall/aspiration/seizure precaution. Frequent rounding checks done.
[2021-05-15 06:40] LABS: ALANINE AMINOTRANSFERASE 27 U/L (12-78); ALBUMIN 2.7 g/dL (3.4-4.8); ANION GAP 9 (5-15); ASPARTATE AMINOTRANSFERASE 27 U/L (10-37); CALCIUM 7.8 mg/dL (8.4-11.0); CHLORIDE 107 mmol/L (98-107); CREATININE 0.54 mg/dL (0.55-1.30); GLUCOSE 86 mg/dL (70-99); POTASSIUM 3.8 mmol/L (3.5-5.1); SODIUM SERUM 141 mmol/L (136-145); TOTAL BILIRUBIN 0.3 mg/dL (0.0-1.0); UREA NITROGEN, BLOOD 13 mg/dL (8-21)
--- NOTE | 2021-05-15 06:40 | NUR ---
Nutrition Update Jesus Scale 15 noted. Pt admitted for Recurrent syncope Diet: Clear liquid BMI: 37.2 kg/m2 RD to follow per nutrition care standards.
[2021-05-15 07:44] VITALS: BP_SYST 115
[2021-05-15 07:50] LABS: GFR AFRICAN AMERICAN 164 mL/min (>90)
--- NOTE | 2021-05-15 08:00 | NUR ---
Initial note: Patient is alert, oriented x4, states having anxiety. She is also complaining of pain on posterior head through her back spine, but getting better after pain medication given. She is on Normal Saline IVF at 100 ml/hr. Will F/U on medication for anxiety.
[2021-05-15] MEDS: LORazepam 2 MG/ML VIAL IVP PRN ×2 (08:05→20:15)
[2021-05-15] MEDS: GABAPENTIN 300 MG CAPSULE PO SCH (08:06)
[2021-05-15] MEDS: lisinopriL 20 MG TABLET PO SCH (08:06)
[2021-05-15] MEDS: PANTOPRAZOLE SODIUM 40 MG TAB PO SCH ×2 (08:06→20:50)
[2021-05-15] MEDS: levETIRAcetam 500 MG TABLET PO SCH ×2 (08:06→20:50)
--- NOTE | 2021-05-15 10:40 | NUR ---
Patient is resting comfortably after Ativan IVP given.
--- NOTE | 2021-05-15 12:08 | NUR ---
Cardio consult Called cardio consult with Dr Jose Carlos Walters
[2021-05-15 12:14] VITALS: BP_SYST 100
[2021-05-15 16:41] VITALS: BP_SYST 109
--- NOTE | 2021-05-15 18:40 | NUR ---
Neuro round: Dr. Bowman is in the unit for the consult.
--- NOTE | 2021-05-15 18:41 | NUR ---
Closing note: Patient is stable , no sign of acute distress. Pain is controlled with Morphine 2 mg IVP PRN. Still have poor appetite and feels nausea sometimes.
--- NOTE | 2021-05-15 19:30 | NUR ---
Opening note Received pt from out going nurse. Pt lying in bed awake and alertX4. On RA, breathing non labored. No distress noted. IV on left hand patent and intact, no infiltration or complications. Family at bedside. Help to bedside commode and linen change. Bed to lowest position and locked/alarmed. Call light within reach and needs attended. On safety/fall/aspiration precaution.
[2021-05-15 20:00] VITALS: BP_SYST 100
[2021-05-16 00:42] VITALS: BP_SYST 102
[2021-05-16] MEDS: NACL 0.9% 1,000 ML IV SCH ×3 (01:56→23:01)
[2021-05-16] MEDS: MORPHINE 4 MG INJ. 4 MG/ML VIAL IVP PRN ×4 (01:58→18:17)
--- NOTE | 2021-05-16 06:33 | NUR ---
Closing note Pt resting in bed sleeping, easily arouse by name and tactile stimuli. Pt alertX4. On RA, breathing non labored. No distress noted. IV on left hand patent and intact, no infiltration or complications. Provided linen change. All needs attended to. Bed to lowest position and locked/alarmed. Call light within reach and needs attended. On safety/fall/aspiration/seizure precaution. Re-educate on safety and re-orient room. Signed: 05/16/21 at 0634 by Shelli Gómez LVN <Co-Signature Required> Co-Signed: 05/16/21 at 0634 by Gregorio Tate RN
--- NOTE | 2021-05-16 07:26 | NUR ---
OPENING NOTE Patient resting in the bed. No acute distress. Skin warm and dry to touch. IV intact to left hand, no redness, no swelling, patent. On NSD at 100ml/hr, infusing well. SCD in placed. Safety measure maintained. Call light within reached. Bed locked in low position, padded side rails up, bed alarm on. Will continue to monitor.
[2021-05-16 08:00] VITALS: BP_SYST 108
[2021-05-16] MEDS: GABAPENTIN 300 MG CAPSULE PO SCH (08:31)
[2021-05-16] MEDS: PANTOPRAZOLE SODIUM 40 MG TAB PO SCH ×2 (08:31→20:21)
[2021-05-16] MEDS: levETIRAcetam 500 MG TABLET PO SCH ×2 (08:32→20:21)
[2021-05-16] MEDS: lisinopriL 20 MG TABLET PO SCH (08:32)
--- NOTE | 2021-05-16 08:34 | NUR ---
MORPHINE GIVEN Patient c/o back pain 05/05 after got up to use bedside commode. Morphine 2mg IVP given as ordered. No acute distress. Safety measure maintained. Call light within reached. Bed locked in low position, padded side rails up, bed alarm on. Continue to monitor.
[2021-05-16] MEDS: ONDANSETRON HCL 4 MG/2 ML VIAL IVP PRN ×2 (09:27→20:20)
--- NOTE | 2021-05-16 09:30 | NUR ---
ZOFRAN GIVEN Patient c/o nausea. Zofran 4mg IVP given as ordered. No acute distress. EGG tech at bedside and started to do EGG. Safety measure maintained. Call light within reached. Continue to monitor.
--- NOTE | 2021-05-16 09:55 | NUR ---
SEEN AND EXAMINED BY PATRICIA PONCE.
--- NOTE | 2021-05-16 10:40 | NUR ---
EGG DONE AT BEDSIDE.
--- NOTE | 2021-05-16 12:48 | NUR ---
MORPHINE GIVEN Patient c/o back pain 06/05, Morphine 2mg IVP given as ordered. No acute distress. Safety measure maintained. Bed locked in low position, padded side rails up, bed alarm on. Call light within reached. Continue to monitor.
--- NOTE | 2021-05-16 12:55 | NUR ---
Dietitian Recommendations * Recommend: advance diet when medically appropriate * Recommend: cardiac diet Please see Nutritional Assessment for details. ONEIDA RUBIO
--- NOTE | 2021-05-16 13:32 | NUR ---
OFF UNIT FOR MRI BRAIN/HEAD IN STABLE CONDITION VIA WHEELCHAIR.
--- NOTE | 2021-05-16 15:00 | NUR ---
PATIENT BACK TO UNIT FROM MRI IN STABLE CONDITION VIA WHEELCHAIR.
[2021-05-16 16:20] VITALS: BP_SYST 115
--- NOTE | 2021-05-16 17:10 | NUR ---
ROUND Patient resting in the bed. No acute distress. IV intact, IVF infusing well. Safety measure maintained. Call light within reached. Bed locked in low position, padded side rails up, bed alarm on. Continue to monitor.
--- NOTE | 2021-05-16 17:52 | NUR ---
SEEN AND EXAMINED BY SHAYNE CARRIZALES.
--- NOTE | 2021-05-16 18:50 | NUR ---
CLOSING NOTE Patient resting in the bed. No acute distress. PRN pain med given as needed as ordered. Skin warm and dry to touch. IV intact to left hand, no redness, no swelling, patent. On NS at 100ml/hr, infusing well. All needs met. Assisted to use bedside commode. No seizure activity noted during shift. Safety measure maintained. Call light within reached. Bed locked in low position, padded side rails up, bed alarm on. Will endorse to night nurse.
--- NOTE | 2021-05-16 19:15 | NUR ---
OPENING NOTES Patient resting in bed - no s/s pain or distress noted. Respirations even and unlabored - head of bed elevated. IV site patent - no s/s redness, infection, or infiltration. Bed locked and in lowest position. Addendum: 05/16/21 at 2150 by Jameel Morris RN Seizure precautions in place.
[2021-05-16 20:00] VITALS: BP_SYST 104
[2021-05-16] MEDS: LORazepam 2 MG/ML VIAL IVP PRN (20:21)
--- NOTE | 2021-05-16 22:00 | NUR ---
ROUNDING NOTES Patient resting in bed - no s/s pain or distress noted. Respirations even and unlabored - head of bed elevated. IV site patent - no s/s redness, infection, or infiltration. Seizure precautions in place. Bed locked and in lowest position.
[2021-05-17] VITALS: BP_SYST 112
[2021-05-17] MEDS: MORPHINE 4 MG INJ. 4 MG/ML VIAL IVP PRN ×3 (01:31→13:21)
[2021-05-17 08:00] VITALS: BP_SYST 113
--- NOTE | 2021-05-17 08:10 | NUR ---
Opening Notes Patient is awake, alert and oriented x4. No resp distress noted. Breathing is even and unlabored. Pt remains on RA at this time. Pt denies any cough, SOB and sore throat. Pt is c/o 8/10 general body pain, c/o nausea, requesting medication. No c/o syncope episodes or signs/symptons of seizure. IV site on left hand, 20 gauge intact at this time. NS @ 100 cc/hr, infusing well at this time. Pt is ambulatory at this time, BSC available at bedside. All needs met at this time. Safety, seizure and fall precautions in place. Bed in lowest position, locked. Will continue to monitor.
[2021-05-17] MEDS: ONDANSETRON HCL 4 MG/2 ML VIAL IVP PRN (08:11)
[2021-05-17] MEDS: GABAPENTIN 300 MG CAPSULE PO SCH (08:20)
[2021-05-17] MEDS: PANTOPRAZOLE SODIUM 40 MG TAB PO SCH (08:20)
[2021-05-17] MEDS: lisinopriL 20 MG TABLET PO SCH (08:20)
[2021-05-17] MEDS: levETIRAcetam 500 MG TABLET PO SCH (08:20)
[2021-05-17] MEDS: NACL 0.9% 1,000 ML IV SCH (08:21)
[2021-05-17] MEDS: LORazepam 2 MG/ML VIAL IVP PRN (10:57)
[2021-05-17 12:00] VITALS: BP_SYST 119
--- NOTE | 2021-05-17 12:00 | NUR ---
Notes Patient is laying in bed at this time. No resp distress noted. Breathing is even and unlabored. Pt denies any pain at this time. Will continue to monitor.
[2021-05-17 16:52] VITALS: BP_SYST 119
[2021-05-17 17:15] VITALS: BP_SYST 122
== END 2021-05-17 17:25 | disposition home or self-care (01) | DRG 53 ==
LOC: SED 14:33 → STU 18:38 → OBSVTOIN 18:38 → STU 20:18 → SMU 05-16 11:59
PROVIDERS: ADMIT Internal Medicine Hospice and Palliative Medicine; ATTEND Internal Medicine Hospice and Palliative Medicine
PROC: 4A10X4Z Monitoring of Central Nervous Electrical Activity, External Approach (ICD-10-PCS; principal; 2021-05-16)
DX: G40.909 Epilepsy, unspecified, not intractable, without status epilepticus (principal); E44.1 Mild protein-calorie malnutrition; C53.9 Malignant neoplasm of cervix uteri, unspecified; I10 Essential (primary) hypertension; M79.7 Fibromyalgia; M06.9 Rheumatoid arthritis, unspecified; Z20.822 Contact with and (suspected) exposure to COVID-19; R29.6 Repeated falls; Z85.41 Personal history of malignant neoplasm of cervix uteri; Z90.710 Acquired absence of both cervix and uterus
CPT/HCPCS: 36415; 70450-TC; 70551; 76376; 80053; 81003; 84484; 85025; 93005; 93306; 93880; 95816; 99285; G0378; J2060; J2270; J2405

== ENCOUNTER 2021-08-26 08:34 | Inpatient (IN) | payer MEDICAID, SELFPAY ==
[~2021-08-26] VITALS: Ht 160 cm; Wt 90.7 kg
[~2021-08-26 08:34] MED LIST changes: -BUTA-280 PO; -CIPR500T5 PO; -HYDR-3917 PO; -IBUP-1971 PO; -LEVO750T45 PO; -METR-154 PO; -METR500T PO; -MOM PO
[2021-08-26 08:50] VITALS: BP_SYST 116
--- NOTE | 2021-08-26 08:54 | NUR ---
Patient to ER bed h2 to gown for evaluation. Side rails up.
--- NOTE | 2021-08-26 09:38 | NUR ---
Pt. brought in by post having a seizure around 3am per pt., pt. has hx. of seizures and takes Keppra, currently feels dizzy and has abd pain 8/10 hx. of diverticulitis and ovarian cysts, VSS
--- NOTE | 2021-08-26 10:04 | NUR ---
CHALO Hope at bedside examining patient.
--- NOTE | 2021-08-26 10:30 | NUR ---
Pt. crying states pain now 08/05 and dry heaving notified Dr. Willingham awaitting orders
[2021-08-26 10:55] LABS: BASOPHILS % (AUTO) 0.4 % (0.0-2.0); EOSINOPHILS % (AUTO) 0.4 % (0.0-4.0); HEMATOCRIT 39.2 % (36-48); HEMOGLOBIN 13.2 g/dL (12.0-16.0); LYMPHOCYTES # (AUTO) 3.2 K/uL (1.0-5.5); LYMPHOCYTES % (AUTO) 44.9 % (20.5-51.5); MEAN CORPUSCULAR HEMOGLOBIN 30 pg (27-31); MEAN CORPUSCULAR HGB CONC 34 % (32-36); MEAN CORPUSCULAR VOLUME 90 fL (79.0-98.0); MONOCYTES # (AUTO) 0.5 K/uL (0.0-1.0); MONOCYTES % (AUTO) 7.6 % (1.7-9.3); NEUTROPHILS # (AUTO) 3.4 K/uL (1.8-7.7); NEUTROPHILS % (AUTO) 46.7 % (40.0-70.0); PLATELET COUNT (AUTO) 292 K/uL (130-430); RED BLOOD CELL COUNT(AUTO) 4.37 MIL/uL (4.2-6.2); RED CELL DISTRIBUTION WIDTH 14.7 % (9.0-15.0); WHITE BLOOD COUNT (AUTO) 7.2 K/uL (4.8-10.8)
[2021-08-26 11:03] LABS: CALCIUM 9.4 mg/dL (8.4-11.0); CREATININE 0.8 mg/dL (0.55-1.30); POTASSIUM 4.2 mmol/L (3.5-5.1)
[2021-08-26 11:05] LABS: ALBUMIN 3.9 g/dL (3.4-4.8); TOTAL BILIRUBIN 0.4 mg/dL (0.0-1.0)
[2021-08-26] MEDS ORDERED: METOCLOPRAMIDE HCL 10 MG/2 ML VIAL IVP ONE (11:15)
[2021-08-26] MEDS ORDERED: DIAZEPAM 10 MG/2 ML DISP.SYRIN IVP ONE (11:15)
[2021-08-26] MEDS ORDERED: KETOROLAC TROMETHAMINE 30 MG VIAL IVP ONE (11:15)
[2021-08-26] MEDS ORDERED: MORPHINE 4 MG INJ. 4 MG/ML VIAL IVP ONE ×2 (11:15)
[2021-08-26] MEDS ORDERED: METOCLOPRAMIDE HCL 10 MG/2 ML VIAL ONE (11:26)
--- NOTE | 2021-08-26 12:06 | NUR ---
IV valium was not given, not in pysix, Dr. Willingham aware
[2021-08-26] MEDS ORDERED: DIAZEPAM 5 MG TABLET (VALIUM) PO ONE (12:15)
--- NOTE | 2021-08-26 12:40 | NUR ---
Patient transported to radiology via wheelchair, accompanied by staff.
--- NOTE | 2021-08-26 13:33 | NUR ---
Dr. Willingham at bedside discussing POC with pt. and results of abd. U/S
[2021-08-26] MEDS ORDERED: metroNIDAZOLE 500 mg/NS 100 ML IV ONE (14:00)
[2021-08-26] MEDS ORDERED: PIPERACILLIN/TAZO 3.375 GM in NS 50 ML IV ONE (14:00)
--- NOTE | 2021-08-26 14:05 | NUR ---
Covid, Chest xray and EKG ordered as preop, spoke with Dr. Remy and plan to do appendectomy this afternoon
[2021-08-26] MEDS ORDERED: PIPERACILLIN/TAZOBACTAM 3.375 GM/VIAL (ZOSYN) IV ONE (14:26)
--- NOTE | 2021-08-26 14:30 | NUR ---
phone update to Dr. Metcalf
[2021-08-26] MEDS ORDERED: SOM350 PO (14:37)
[2021-08-26] MEDS ORDERED: ALPR0.5T PO (14:37)
[2021-08-26] MEDS ORDERED: GABA-776 PO (14:37)
[2021-08-26] MEDS ORDERED: LEVE500T9 PO (14:37)
[2021-08-26] MEDS ORDERED: LISI20TA30 PO (14:37)
--- NOTE | 2021-08-26 14:37 | NUR ---
Medication reconciliation completed with information provided by patient. Any prior medication reconciliation on file was reviewed and corrected.
--- NOTE | 2021-08-26 15:30 | NUR ---
Dr. Remy at bedside to evaluate pt., POC reviewed with Dr. Metcalf plan to hold off surgery at this time
--- NOTE | 2021-08-26 16:01 | NUR ---
Admit orders Rec'd from Dr Robert Walters, admit to med surg under Annaal
--- NOTE | 2021-08-26 16:33 | NUR ---
Patient will be admitted to care of Dr. Mccauley Admitted to medsurg unit. Will go to room 100A. Belongings list completed. Complete and up to date summary report printed. SBAR report given at bedside with Dylan opportunity for questions.
--- NOTE | 2021-08-26 16:45 | NUR ---
ADMIT NOTE Received pt from ER to the floor with a diagnosis of ABDOMINAL PAIN. Admission process initiated. patient oriented to pain management, safety and call light-teach back done.
[2021-08-26] MEDS: ONDANSETRON HCL 4 MG/2 ML VIAL IVP PRN ×2 (17:45→20:58)
[2021-08-26] MEDS: LR 1,000 ML IV SCH (17:45)
[2021-08-26 19:00] VITALS: BP_SYST 105
--- NOTE | 2021-08-26 19:15 | NUR ---
change of shift.pt.presents quiescent affect calm,resting.pt.presents iv access intact iv fluids infusing.pt.capable to reposition self/ambulate unassisted.diet converted to regular.pt.apprised.general status stable.respiratory status stable;unlabored@room air.call light/telephone w/in access of the pt.
[2021-08-26 19:33] VITALS: BP_SYST 107
[2021-08-26 20:00] VITALS: BP_SYST 105
--- NOTE | 2021-08-26 20:00 | NUR ---
pt.assessed.v/s assessed values wnl.pt.inquiered@what time the subsequent pain medication:ms is due.i reviewed the emar;med-list.i apprised the pt.that the morphine is due@2100p.i apprised the pt.that snacks/beverages are available w/in the shift.pt.requested ice chips.provided.iv access intact iv fluids infusing.pt.capable to reposition self.call light/ telephone w/in access of the pt.pt.
[2021-08-26] MEDS: PIPERACILLIN/TAZO 3.375/DEX-IS 50 ML IV SCH (20:52)
[2021-08-26] MEDS: MORPHINE 4 MG INJ. 4 MG/ML VIAL IVP PRN (20:56)
--- NOTE | 2021-08-26 21:00 | NUR ---
i have administered morphine:4mg/zofran;4mg@this hour.pt.had requested medication;nausea.to assess the efficacy of the medication pain per pain mgx protocol.and the zofran.
--- NOTE | 2021-08-26 22:00 | NUR ---
pt.assessed.pt.presents quiescent affect;calm,somnolent.per flacc pain mgx pt.absent facial grimaces/body posturing.pt.capable to reposition self.iv aces iv fluids infusing.call light/telephone w/in access of the pt.
[2021-08-27] VITALS: BP_SYST 103
--- NOTE | 2021-08-27 | NUR ---
pt.assessed.v/s assessed values wnl.no c/o pain,nausea.iv access intact iv fluids infusing.no requests posited@this hour. pt.capable to reposition self.call light/telephone w/in access of the pt.
--- NOTE | 2021-08-27 02:00 | NUR ---
pt.assessed.pt.presents quiescent affect;calm,somnolent.per flacc pain mgx pt.absent facial grimaces/body posturing.iv access intact iv fluids infusing.pt.capable to reposition self.call light/telephone w/in access of the pt.
[2021-08-27] MEDS: ONDANSETRON HCL 4 MG/2 ML VIAL IVP PRN ×3 (02:26→13:51)
[2021-08-27] MEDS: PIPERACILLIN/TAZO 3.375/DEX-IS 50 ML IV SCH ×3 (02:26→13:44)
[2021-08-27] MEDS: MORPHINE 4 MG INJ. 4 MG/ML VIAL IVP PRN ×2 (02:29→07:48)
--- NOTE | 2021-08-27 02:30 | NUR ---
pt.requested medication;pain/nausea.i have administered morphine;4mg ivp/zofran;4mg ivp.to assess the efficacy of the pain medication per pain mgx protocol and the efficacy of the zofran per medication protocol.
[2021-08-27] MEDS: LR 1,000 ML IV SCH ×2 (03:15→13:44)
--- NOTE | 2021-08-27 04:00 | NUR ---
pt.assessed.pt.presents quiescent affect;calm,somnolent.per flacc pain mgx pt.absent facial grimaces/body posturing. pt.capable to reposition self.iv access intact iv fluids infusing.call light/telephone w/in access of the pt.
--- NOTE | 2021-08-27 06:22 | NUR ---
pt.assessed.pt.presents quiescent affect;calm,somnolent.per flacc pain mgx pt.absent facial grimaces/body posturing. iv access intact iv fluids infusing.pt.capable to reposition self.call light/telephone w/in access of the pt.
--- NOTE | 2021-08-27 07:30 | NUR ---
OPENING NOTES AWAKE AND ORIENTED. NO SHORTNESS OF BREATH ON ROOM AIR. COMPLAINS OF 11/05 LOWER ABDOMINAL PAIN AND NAUSEA. PLAN OF CARE EXPLAINED TO PATIENT AND SHE VERBALIZED UNDERSTANDING. SAFETY CHECKS DONE. CALL LIGHT WITHIN REACH. WILL MONITOR.
[2021-08-27 08:00] VITALS: BP_SYST 105
--- NOTE | 2021-08-27 09:50 | NUR ---
CONSENTS SIGNED EXPLAINED TO PATIENT THAT DR. ANDINO ORDERED AN EXPLORATORY LAPAROTOMY AND APPENDECTOMY TODAY AT 12 PM. CONSENTS SIGNED BY PATIENT.
--- NOTE | 2021-08-27 10:30 | NUR ---
URINALYSIS SPECIMEN BROUGHT TO LAB
[2021-08-27 10:42] LABS: BASOPHILS % (AUTO) 0.4 % (0.0-2.0); CALCIUM 8.6 mg/dL (8.4-11.0); CREATININE 0.85 mg/dL (0.55-1.30); EOSINOPHILS # (AUTO) 0.1 K/uL (0.0-0.4); EOSINOPHILS % (AUTO) 1.3 % (0.0-4.0); HEMATOCRIT 35.5 % (36-48); HEMOGLOBIN 11.8 g/dL (12.0-16.0); LYMPHOCYTES # (AUTO) 2.1 K/uL (1.0-5.5); LYMPHOCYTES % (AUTO) 36.2 % (20.5-51.5); MEAN CORPUSCULAR HEMOGLOBIN 30 pg (27-31); MEAN CORPUSCULAR HGB CONC 33 % (32-36); MEAN CORPUSCULAR VOLUME 90 fL (79.0-98.0); MONOCYTES # (AUTO) 0.5 K/uL (0.0-1.0); MONOCYTES % (AUTO) 8.5 % (1.7-9.3); NEUTROPHILS # (AUTO) 3.1 K/uL (1.8-7.7); NEUTROPHILS % (AUTO) 53.6 % (40.0-70.0); PLATELET COUNT (AUTO) 253 K/uL (130-430); RED BLOOD CELL COUNT(AUTO) 3.93 MIL/uL (4.2-6.2); RED CELL DISTRIBUTION WIDTH 14.8 % (9.0-15.0); WHITE BLOOD COUNT (AUTO) 5.9 K/uL (4.8-10.8)
[2021-08-27 10:47] LABS: ALBUMIN 3.3 g/dL (3.4-4.8); TOTAL BILIRUBIN 0.8 mg/dL (0.0-1.0)
[2021-08-27 11:12] LABS: HCG,QUAL RESULT NEGATIVE (NEGATIVE)
[2021-08-27 11:27] LABS: PROTHROMBIN TIME 10.5 SECS (9.5-12.5)
[2021-08-27 12:12] VITALS: BP_SYST 106
[2021-08-27 12:15] LABS: BILIRUBIN,URINE NEGATIVE (NEGATIVE); BLOOD, URINE 1+ (NEGATIVE); CLARITY/URINE CLEAR (CLEAR); COLOR,URINE YELLOW (YELLOW); GLUCOSE,URINE NEGATIVE (NEGATIVE); KETONES,URINE TRACE (NEGATIVE); LEUKOCYTE ESTERASE ,URINE NEGATIVE (NEGATIVE); NITRITE, URINE NEGATIVE (NEGATIVE); PH,URINE 6.5 (5.0-8.0); PROTEIN URINE NEGATIVE (NEGATIVE); UROBILINOGEN,URINE 0.2 (0.2-1.0)
[2021-08-27 12:22] LABS: BACTERIA,URINE RARE /HPF (None Seen); WBC,URINE 0-3 /HPF (0-3)
[2021-08-27] MEDS ORDERED: ALPRAZolam 0.25 MG TABLET PO PRN (15:15)
--- NOTE | 2021-08-27 15:30 | NUR ---
ANXIETY PATIENT IS CRYING AND FEELING ANXIOUS ABOUT UPCOMING SURGERY. SHE SAID SHE DID NOT WANT TO GO THROUGH THE SURGERY ANYMORE. ASKED IF SHE CAN TAKE HER HOME MED FOR ANXIETY. CALLED DR. OVERTON AND CONTINUED HER HOME MED.
--- NOTE | 2021-08-27 16:30 | NUR ---
AMA PATIENT SIGNED AMA. PATIENT UNDERSTANDS IMPLICATION OF LEAVING. CALLED OPERATING ROOM TO CANCEL PROCEDURE. DR. ANDINO IS INFORMED. IS WAITING OUTSIDE THE HOSPITAL. REMOVED IV. NO ACTIVE BLEEDING. PATIENT SAID SHE WILL JUST CALL HER PRIMARY CARE DOCTOR.
== END 2021-08-27 16:15 | disposition left against medical advice (07) | DRG 254 ==
LOC: SED 08:34 → SDS 14:12 → SMU 15:58
PROVIDERS: ADMIT Surgery; ATTEND Surgery
DX: K35.80 Unspecified acute appendicitis (principal); F13.20 Sedative, hypnotic or anxiolytic dependence, uncomplicated; G40.909 Epilepsy, unspecified, not intractable, without status epilepticus; F41.1 Generalized anxiety disorder; I10 Essential (primary) hypertension; J44.9 Chronic obstructive pulmonary disease, unspecified; M79.7 Fibromyalgia; E66.9 Obesity, unspecified; G89.29 Other chronic pain; Z20.822 Contact with and (suspected) exposure to COVID-19; N83.201 Unspecified ovarian cyst, right side; Z85.41 Personal history of malignant neoplasm of cervix uteri; Z90.49 Acquired absence of other specified parts of digestive tract; Z90.711 Acquired absence of uterus with remaining cervical stump; Z93.3 Colostomy status; Z79.01 Long term (current) use of anticoagulants; Z79.899 Other long term (current) drug therapy; Z68.35 Body mass index [BMI] 35.0-35.9, adult
CPT/HCPCS: 36415; 71045; 76376; 76700-TC; 80053; 81000; 83690; 84703; 85025; 85610-TC; 86886; 86900; 86901; 87081; 93005; 96365; 96375; 99285; J1885; J2270; J2405; J2543; J2765

== ENCOUNTER 2022-03-25 10:45 | Emergency (ER) | payer MEDICAID ==
[~2022-03-25] VITALS: Ht 160 cm; Wt 88.0 kg
[~2022-03-25 10:45] MED LIST changes: +LISI20TA30 PO; +SOM350 PO
[2022-03-25 10:50] VITALS: BP_SYST 118
[2022-03-25 11:22] LABS: HEMATOCRIT 38.1 % (36-48); MEAN CORPUSCULAR HEMOGLOBIN 30 pg (27-31); MEAN CORPUSCULAR HGB CONC 34 % (32-36); MEAN CORPUSCULAR VOLUME 88 fL (79.0-98.0); PLATELET COUNT (AUTO) 295 K/uL (130-430); RED BLOOD CELL COUNT(AUTO) 4.35 MIL/uL (4.2-6.2); RED CELL DISTRIBUTION WIDTH 14.2 % (9.0-15.0); WHITE BLOOD COUNT (AUTO) 6.3 K/uL (4.8-10.8)
[2022-03-25 11:28] LABS: ANION GAP 10 (5-15); CALCIUM 8.4 mg/dL (8.4-11.0); CHLORIDE 101 mmol/L (98-107); CREATININE 0.78 mg/dL (0.55-1.30); GLUCOSE 93 mg/dL (70-99); POTASSIUM 3.9 mmol/L (3.5-5.1); SODIUM SERUM 136 mmol/L (136-145); UREA NITROGEN, BLOOD 21 mg/dL (8-21)
[2022-03-25 11:29] LABS: GFR AFRICAN AMERICAN 107 mL/min (>90)
[2022-03-25 11:34] LABS: ALANINE AMINOTRANSFERASE 24 U/L (12-78); ALBUMIN 3.6 g/dL (3.4-4.8); AMYLASE 50 U/L (0-100); ASPARTATE AMINOTRANSFERASE 21 U/L (10-37); LIPASE 70 U/L (73-393); TOTAL BILIRUBIN 0.6 mg/dL (0.0-1.0)
[2022-03-25 11:35] LABS: BILIRUBIN,URINE NEGATIVE (NEGATIVE); COLOR,URINE YELLOW (YELLOW); GLUCOSE,URINE NEGATIVE (NEGATIVE); KETONES,URINE TRACE (NEGATIVE); LEUKOCYTE ESTERASE ,URINE NEGATIVE (NEGATIVE); NITRITE, URINE NEGATIVE (NEGATIVE); PROTEIN URINE NEGATIVE (NEGATIVE); UROBILINOGEN,URINE 0.2 (0.2-1.0)
[2022-03-25 11:38] LABS: BLOOD, URINE TRACE (NEGATIVE); CLARITY/URINE SLIGHTLY HAZY (CLEAR)
[2022-03-25 11:40] LABS: C-REACTIVE PROTEIN QUANT < 0.2 mg/dL (0-0.5)
[2022-03-25] MEDS ORDERED: KETOROLAC TROMETHAMINE 60 MG/2 ML VIAL IM ONE (11:45)
[2022-03-25 11:55] LABS: BACTERIA,URINE RARE /HPF (None Seen); WBC,URINE 0-3 /HPF (0-3)
[2022-03-25 12:24] LABS: ATYPICAL LYMPHOCYTES % 7 % (0-0); LYMPHOCYTES % (MANUAL) 56 % (20-46); MONOCYTES % (MANUAL) 8 % (0-11)
[2022-03-25 12:25] LABS: BASOPHILS % (MANUAL) 0 % (0-2); EOSINOPHILS % (MANUAL) 0 % (0-7)
[2022-03-25] MEDS ORDERED: IBUP-1969 PO (12:47)
[2022-03-25] MEDS ORDERED: HYDR-3917 PO (12:47)
== END 2022-03-25 13:15 | disposition home or self-care (01) ==
LOC: SED 10:45
DX: R10.32 Left lower quadrant pain (principal); I10 Essential (primary) hypertension; J44.9 Chronic obstructive pulmonary disease, unspecified; R56.9 Unspecified convulsions; Z79.899 Other long term (current) drug therapy; Z85.41 Personal history of malignant neoplasm of cervix uteri
CPT/HCPCS: 36415; 74176; 76376; 80053; 81000; 81025; 82150; 83605; 83690; 84703; 85007; 85027; 86140; 96372; 99284; J1885

== ENCOUNTER 2022-12-13 08:41 | Emergency (ER) | payer MEDICAID ==
[~2022-12-13] VITALS: Ht 160 cm; Wt 83.9 kg
[~2022-12-13 08:41] MED LIST changes: +HYDR-3917 PO; +IBUP-1969 PO
--- NOTE | 2022-12-13 08:56 | NUR ---
Patient to ER bed 4 to gown for evaluation. Side rails up. Report given to RAY.
[2022-12-13 08:57] VITALS: BP_SYST 117
--- NOTE | 2022-12-13 09:10 | NUR ---
DR. GODINEZ AT BEDSIDE TO ASSESS.
--- NOTE | 2022-12-13 09:10 | NUR ---
Pt bib self, ambulated to bed 4. Pt is A&Ox4, able to make needs known. Pt c/o of left pelvic pain for one week. Pt states she noticed a lump on the left side of pelvic area. Pain rating 9/10. Pt describes pain as cramping, sharp, and radiates to right side of pelvis. Pt denies vaginal discharge. Pt states nausea. Pt has a history of cervical cancer. Safety measures in place.
[2022-12-13] MEDS ORDERED: MORPHINE 4 MG INJ. 4 MG/ML VIAL IVP ONE (09:15)
[2022-12-13] MEDS ORDERED: ONDANSETRON HCL 4 MG/2 ML VIAL IVP ONE (09:15)
[2022-12-13] MEDS ORDERED: NACL 0.9% 1,000 ML IV ONE (09:15)
[2022-12-13 09:49] LABS: BASOPHILS % (AUTO) 0.4 % (0.0-2.0); EOSINOPHILS % (AUTO) 0.5 % (0.0-4.0); HEMATOCRIT 35.6 % (36-48); LYMPHOCYTES # (AUTO) 1.9 K/uL (1.0-5.5); LYMPHOCYTES % (AUTO) 41.8 % (20.5-51.5); MEAN CORPUSCULAR HEMOGLOBIN 31 pg (27-31); MEAN CORPUSCULAR HGB CONC 34 % (32-36); MEAN CORPUSCULAR VOLUME 91 fL (79.0-98.0); MONOCYTES # (AUTO) 0.4 K/uL (0.0-1.0); NEUTROPHILS # (AUTO) 2.2 K/uL (1.8-7.7); NEUTROPHILS % (AUTO) 48.3 % (40.0-70.0); PLATELET COUNT (AUTO) 265 K/uL (130-430); RED BLOOD CELL COUNT(AUTO) 3.91 MIL/uL (4.2-6.2); RED CELL DISTRIBUTION WIDTH 14.3 % (9.0-15.0); WHITE BLOOD COUNT (AUTO) 4.6 K/uL (4.8-10.8)
[2022-12-13 09:53] LABS: ERYTHROCYTE SEDIMENTATION RATE 15 MM/HR (0-20)
[2022-12-13 09:59] LABS: ANION GAP 7 (5-15); CALCIUM 8.8 mg/dL (8.4-11.0); CHLORIDE 103 mmol/L (98-107); CREATININE 0.61 mg/dL (0.55-1.30); GLUCOSE 93 mg/dL (70-99); UREA NITROGEN, BLOOD 12 mg/dL (8-21)
[2022-12-13 10:01] LABS: GFR AFRICAN AMERICAN 142 mL/min (>90)
[2022-12-13 10:04] LABS: ALANINE AMINOTRANSFERASE 22 U/L (12-78); ALBUMIN 3.3 g/dL (3.4-4.8); ASPARTATE AMINOTRANSFERASE 12 U/L (10-37); TOTAL BILIRUBIN 0.4 mg/dL (0.0-1.0)
[2022-12-13 10:07] LABS: C-REACTIVE PROTEIN QUANT < 0.2 mg/dL (0-0.5)
[2022-12-13] MEDS ORDERED: KETOROLAC TROMETHAMINE 15 MG VIAL IVP ONE (10:15)
--- NOTE | 2022-12-13 10:49 | NUR ---
PT LEF TO CT IN [facility]. PT STABLE.
--- NOTE | 2022-12-13 11:29 | NUR ---
TORADOL 15MG IVP GIVEN FOR PELVIC PAIN 06/05.
--- NOTE | 2022-12-13 12:52 | NUR ---
DR GODINEZ AT BEDSIDE DISCUSSING PLAN OF CARE.
[2022-12-13] MEDS ORDERED: OXYC-128 PO (13:01)
[2022-12-13 13:43] LABS: BILIRUBIN,URINE NEGATIVE (NEGATIVE); BLOOD, URINE NEGATIVE (NEGATIVE); CLARITY/URINE CLEAR (CLEAR); COLOR,URINE YELLOW (YELLOW); GLUCOSE,URINE NEGATIVE (NEGATIVE); KETONES,URINE NEGATIVE (NEGATIVE); LEUKOCYTE ESTERASE ,URINE NEGATIVE (NEGATIVE); NITRITE, URINE NEGATIVE (NEGATIVE); PH,URINE 6.5 (5.0-8.0); PROTEIN URINE NEGATIVE (NEGATIVE); UROBILINOGEN,URINE 0.2 (0.2-1.0)
[2022-12-13 13:53] VITALS: BP_SYST 107
--- NOTE | 2022-12-13 13:55 | NUR ---
Patient given written and verbal discharge instructions and verbalizes understanding. ER Dr Kelley discussed with patient the results and treatment provided. Patient in stable condition. ID arm band removed. IV catheter removed intact and dressing applied, no active bleeding. Rx of Percocet given. Patient educated on pain management and to follow up with PMD. Pain Scale 0/10. Opportunity for questions provided and answered. Medication side effect fact sheet provided.
== END 2022-12-13 13:53 | disposition home or self-care (01) ==
LOC: SED 08:41
DX: R19.00 Intra-abdominal and pelvic swelling, mass and lump, unspecified site (principal); C77.4 Secondary and unspecified malignant neoplasm of inguinal and lower limb lymph nodes; R50.9 Fever, unspecified; R11.0 Nausea; J44.9 Chronic obstructive pulmonary disease, unspecified; I10 Essential (primary) hypertension; Z79.899 Other long term (current) drug therapy
CPT/HCPCS: 99285; 74177; 96374; 96375; 96361; 80053; 85025; 85651; 86140; 87040; 36415; 76376; 81025; 83605; 81003; J1885; J2405; J2270; Q9967; J7030

== ENCOUNTER 2023-12-26 12:21 | Emergency (ER) | payer MEDICAID, OTHER ==
[~2023-12-26] VITALS: Ht 160 cm; Wt 77.1 kg
[~2023-12-26 12:21] MED LIST changes: +OXYC-128 PO
[2023-12-26 12:33] VITALS: BP_SYST 128; PULSE 110; RESP 16; TEMP 97.7; O2SAT 99
[2023-12-26] MEDS: NACL 0.9% 1,000 ML IV ONE (12:40)
[2023-12-26 12:44] LABS: BASOPHILS % (AUTO) 0.4 % (0.0-2.0); EOSINOPHILS % (AUTO) 0.5 % (0.0-4.0); HEMATOCRIT 34.5 % (36-48); HEMOGLOBIN 11.8 g/dL (12.0-16.0); LYMPHOCYTES # (AUTO) 2.7 K/uL (1.0-5.5); LYMPHOCYTES % (AUTO) 53.8 % (20.5-51.5); MEAN CORPUSCULAR HEMOGLOBIN 33 pg (27-31); MEAN CORPUSCULAR HGB CONC 34 % (32-36); MEAN CORPUSCULAR VOLUME 95 fL (79.0-98.0); MONOCYTES # (AUTO) 0.3 K/uL (0.0-1.0); MONOCYTES % (AUTO) 6.3 % (1.7-9.3); NEUTROPHILS # (AUTO) 1.9 K/uL (1.8-7.7); PLATELET COUNT (AUTO) 261 K/uL (130-430); RED BLOOD CELL COUNT(AUTO) 3.62 MIL/uL (4.2-6.2); RED CELL DISTRIBUTION WIDTH 12.9 % (9.0-15.0); WHITE BLOOD COUNT (AUTO) 4.9 K/uL (4.8-10.8)
[2023-12-26] MEDS: KETOROLAC TROMETHAMINE 30 MG VIAL IVP ONE (12:48)
[2023-12-26] MEDS: ONDANSETRON HCL 4 MG/2 ML VIAL IVP ONE (12:49)
[2023-12-26] MEDS: LORazepam 2 MG/ML VIAL IVP ONE (12:49)
[2023-12-26 13:01] LABS: CALCIUM 8.7 mg/dL (8.4-11.0); CREATININE 0.77 mg/dL (0.55-1.30); POTASSIUM 3.8 mmol/L (3.5-5.1)
[2023-12-26 13:05] LABS: ALBUMIN 3.6 g/dL (3.4-4.8); BILIRUBIN,DIRECT 0.1 mg/dL (0.0-0.3); TOTAL BILIRUBIN 0.2 mg/dL (0.0-1.0); TOTAL PROTEIN, SERUM 8.1 g/dL (6.4-8.3)
[2023-12-26] MEDS: MORPHINE 2 MG/ML INJ. SYRINGE IVP ONE (13:56)
[2023-12-26 14:59] LABS: BILIRUBIN,URINE NEGATIVE (NEGATIVE); BLOOD, URINE NEGATIVE (NEGATIVE); CLARITY/URINE CLEAR (CLEAR); COLOR,URINE YELLOW (YELLOW); GLUCOSE,URINE NEGATIVE (NEGATIVE); KETONES,URINE TRACE (NEGATIVE); LEUKOCYTE ESTERASE ,URINE NEGATIVE (NEGATIVE); NITRITE, URINE NEGATIVE (NEGATIVE); PROTEIN URINE NEGATIVE (NEGATIVE); UROBILINOGEN,URINE 0.2 (0.2-1.0)
[2023-12-26] MEDS: levETIRAcetam 500 MG TABLET PO ONE (15:13)
[2023-12-26 15:18] VITALS: BP_SYST 108; PULSE 82; RESP 18; TEMP 98.4; O2SAT 99
== END 2023-12-26 15:14 | disposition home or self-care (01) ==
LOC: SED 12:21
DX: R56.9 Unspecified convulsions (principal); R10.30 Lower abdominal pain, unspecified; I10 Essential (primary) hypertension; J44.9 Chronic obstructive pulmonary disease, unspecified; Z85.43 Personal history of malignant neoplasm of ovary; Z79.899 Other long term (current) drug therapy
CPT/HCPCS: 99285; 96374; 96375; 96361; 74176; 80076; 80048; 81001; 83690; 85025; 36415; 81003; J7030; J1885; J2060; J2405; J2270

== ENCOUNTER 2023-12-28 01:11 | Emergency (ER) | payer OTHER ==
[~2023-12-28] VITALS: Ht 160 cm; Wt 79.4 kg
[2023-12-28 01:27] VITALS: BP_SYST 103; PULSE 101; RESP 20; TEMP 98; O2SAT 100
[2023-12-28 01:51] LABS: BASOPHILS % (AUTO) 0.3 % (0.0-2.0); EOSINOPHILS % (AUTO) 0.7 % (0.0-4.0); HEMATOCRIT 31.9 % (36-48); HEMOGLOBIN 10.9 g/dL (12.0-16.0); LYMPHOCYTES # (AUTO) 2.8 K/uL (1.0-5.5); LYMPHOCYTES % (AUTO) 48.6 % (20.5-51.5); MEAN CORPUSCULAR HEMOGLOBIN 33 pg (27-31); MEAN CORPUSCULAR HGB CONC 34 % (32-36); MEAN CORPUSCULAR VOLUME 95 fL (79.0-98.0); MONOCYTES # (AUTO) 0.4 K/uL (0.0-1.0); MONOCYTES % (AUTO) 6.9 % (1.7-9.3); NEUTROPHILS # (AUTO) 2.5 K/uL (1.8-7.7); NEUTROPHILS % (AUTO) 43.5 % (40.0-70.0); PLATELET COUNT (AUTO) 227 K/uL (130-430); RED BLOOD CELL COUNT(AUTO) 3.36 MIL/uL (4.2-6.2); WHITE BLOOD COUNT (AUTO) 5.8 K/uL (4.8-10.8)
[2023-12-28 02:09] LABS: CALCIUM 8.6 mg/dL (8.4-11.0); CREATININE 0.66 mg/dL (0.55-1.30); POTASSIUM 3.8 mmol/L (3.5-5.1)
[2023-12-28 02:13] LABS: ALBUMIN 3.4 g/dL (3.4-4.8); BILIRUBIN,DIRECT 0.1 mg/dL (0.0-0.3); TOTAL BILIRUBIN 0.2 mg/dL (0.0-1.0); TOTAL PROTEIN, SERUM 7.5 g/dL (6.4-8.3)
[2023-12-28] MEDS: ONDANSETRON HCL 4 MG/2 ML VIAL IVP ONE (02:22)
[2023-12-28] MEDS: LORazepam 2 MG/ML VIAL IVP ONE (02:26)
[2023-12-28] MEDS: MORPHINE 4 MG INJ. 4 MG/ML VIAL IVP ONE (02:30)
[2023-12-28 02:41] LABS: BILIRUBIN,URINE NEGATIVE (NEGATIVE); BLOOD, URINE NEGATIVE (NEGATIVE); CLARITY/URINE CLEAR (CLEAR); COLOR,URINE YELLOW (YELLOW); GLUCOSE,URINE NEGATIVE (NEGATIVE); KETONES,URINE NEGATIVE (NEGATIVE); LEUKOCYTE ESTERASE ,URINE NEGATIVE (NEGATIVE); NITRITE, URINE NEGATIVE (NEGATIVE); PROTEIN URINE NEGATIVE (NEGATIVE); UROBILINOGEN,URINE 0.2 (0.2-1.0)
[2023-12-28 02:58] LABS: BARBITURATE, URINE NEGATIVE (NEG <=200); BENZODIAZEPINE, URINE POSITIVE (NEG <=150); CANNABINOID, URINE NEGATIVE (NEG <=50); COCAINE, URINE NEGATIVE (NEG <=150); METHAMPHETAMINES SCREEN,URINE NEGATIVE (NEG <=500); OPIATE, URINE NEGATIVE (NEG <=100); PHENCYCLIDINE SCREEN,URINE NEGATIVE (NEG <=25); UR TRICYCLIC ANTIDEPRESSANTS POSITIVE (NEG <=300); URINE AMPHETAMINE NEGATIVE (NEG <=500); URINE METHADONE NEGATIVE (NEG <=200); URINE OXYCODONE SCREEN NEGATIVE (NEG <=100)
[2023-12-28] MEDS: NACL 0.9% 1,000 ML IV ONE (03:32)
[2023-12-28 04:58] VITALS: BP_SYST 110; PULSE 84; RESP 18; TEMP 98.3; O2SAT 98
[2023-12-28] MEDS ORDERED: POLY17PO4 PO (05:20)
[2023-12-28] MEDS ORDERED: DICY-14 PO (05:20)
[2023-12-28] MEDS ORDERED: DOCU-144 PO (05:20)
== END 2023-12-28 04:58 | disposition home or self-care (01) ==
LOC: SED 01:11
DX: K59.00 Constipation, unspecified (principal); R10.30 Lower abdominal pain, unspecified; R10.2 Pelvic and perineal pain; R11.0 Nausea; I10 Essential (primary) hypertension; J44.9 Chronic obstructive pulmonary disease, unspecified; Z85.41 Personal history of malignant neoplasm of cervix uteri; Z79.899 Other long term (current) drug therapy
CPT/HCPCS: 99285; 74177; 96374; 76856; 96375; 96361; 80307; 80076; 80048; 83690; 85025; 36415; 81003; 81001; J2060; J2405; J2270; Q9967; J7030

== ENCOUNTER 2024-04-29 06:46 | Emergency (ER) | payer OTHER ==
[~2024-04-29] VITALS: Ht 162.6 cm; Wt 72.6 kg
[~2024-04-29 06:46] MED LIST changes: +DICY-14 PO; +DOCU-144 PO; +POLY17PO4 PO
[2024-04-29 07:11] VITALS: BP_SYST 116; PULSE 75; RESP 18; TEMP 98.3; O2SAT 98
[2024-04-29] MEDS: MORPHINE 4 MG INJ. 4 MG/ML VIAL IM ONE ×2 (07:32→09:12)
[2024-04-29] MEDS: ONDANSETRON 4 MG ODT TAB PO ONE (07:32)
[2024-04-29 07:40] LABS: BASOPHILS % (AUTO) 0.5 % (0.0-2.0); EOSINOPHILS # (AUTO) 0.1 K/uL (0.0-0.4); EOSINOPHILS % (AUTO) 1.2 % (0.0-4.0); HEMATOCRIT 34.9 % (36-48); HEMOGLOBIN 11.8 g/dL (12.0-16.0); LYMPHOCYTES # (AUTO) 2.5 K/uL (1.0-5.5); LYMPHOCYTES % (AUTO) 49.5 % (20.5-51.5); MEAN CORPUSCULAR HEMOGLOBIN 32 pg (27-31); MEAN CORPUSCULAR HGB CONC 34 % (32-36); MEAN CORPUSCULAR VOLUME 95 fL (79.0-98.0); MONOCYTES # (AUTO) 0.4 K/uL (0.0-1.0); MONOCYTES % (AUTO) 7.6 % (1.7-9.3); NEUTROPHILS # (AUTO) 2.1 K/uL (1.8-7.7); NEUTROPHILS % (AUTO) 41.2 % (40.0-70.0); PLATELET COUNT (AUTO) 261 K/uL (130-430); RED BLOOD CELL COUNT(AUTO) 3.67 MIL/uL (4.2-6.2); RED CELL DISTRIBUTION WIDTH 14.7 % (9.0-15.0)
[2024-04-29 07:48] LABS: SERUM HCG (QUALITATIVE) NEGATIVE (NEGATIVE)
[2024-04-29 07:54] LABS: PROTHROMBIN TIME 10.5 SECS (9.5-12.5)
[2024-04-29 07:58] LABS: BILIRUBIN,URINE 1+ (NEGATIVE); BLOOD, URINE NEGATIVE (NEGATIVE); CLARITY/URINE CLEAR (CLEAR); COLOR,URINE YELLOW (YELLOW); GLUCOSE,URINE NEGATIVE (NEGATIVE); KETONES,URINE NEGATIVE (NEGATIVE); LEUKOCYTE ESTERASE ,URINE NEGATIVE (NEGATIVE); NITRITE, URINE NEGATIVE (NEGATIVE); PROTEIN URINE NEGATIVE (NEGATIVE); UROBILINOGEN,URINE 0.2 (0.2-1.0)
[2024-04-29 08:24] LABS: CALCIUM 8.7 mg/dL (8.4-11.0); CREATININE 0.81 mg/dL (0.55-1.30); POTASSIUM 3.3 mmol/L (3.5-5.1)
[2024-04-29 09:24] VITALS: BP_SYST 98; PULSE 61; RESP 18; TEMP 98.1; O2SAT 94
== END 2024-04-29 09:23 | disposition home or self-care (01) ==
LOC: SED 06:46
DX: R10.2 Pelvic and perineal pain (principal); R10.84 Generalized abdominal pain; J45.909 Unspecified asthma, uncomplicated; J44.9 Chronic obstructive pulmonary disease, unspecified; I10 Essential (primary) hypertension; F41.9 Anxiety disorder, unspecified; M79.7 Fibromyalgia; Z85.41 Personal history of malignant neoplasm of cervix uteri; Z79.899 Other long term (current) drug therapy; Z79.2 Long term (current) use of antibiotics
CPT/HCPCS: 99285; 74176; 80048; 81001; 84703; 85025; 85610; 85730; 36415; 81025; 96372; 83605; 82397; Q0162; J2270; 81003

== ENCOUNTER 2024-06-04 20:31 | Inpatient (IN) | payer OTHER ==
[~2024-06-04] VITALS: Ht 160 cm; Wt 85.3 kg
[2024-06-04 20:50] VITALS: BP_SYST 110; PULSE 84; RESP 18; TEMP 98.6; O2SAT 98
[2024-06-04 22:31] LABS: BASOPHILS % (AUTO) 0.3 % (0.0-2.0); EOSINOPHILS % (AUTO) 0.2 % (0.0-4.0); HEMATOCRIT 36.8 % (36-48); HEMOGLOBIN 12.8 g/dL (12.0-16.0); LYMPHOCYTES # (AUTO) 1.9 K/uL (1.0-5.5); LYMPHOCYTES % (AUTO) 22.1 % (20.5-51.5); MEAN CORPUSCULAR HEMOGLOBIN 33 pg (27-31); MEAN CORPUSCULAR HGB CONC 35 % (32-36); MEAN CORPUSCULAR VOLUME 94 fL (79.0-98.0); MONOCYTES # (AUTO) 0.5 K/uL (0.0-1.0); MONOCYTES % (AUTO) 5.8 % (1.7-9.3); NEUTROPHILS # (AUTO) 6.2 K/uL (1.8-7.7); NEUTROPHILS % (AUTO) 71.6 % (40.0-70.0); PLATELET COUNT (AUTO) 251 K/uL (130-430); RED CELL DISTRIBUTION WIDTH 13.9 % (9.0-15.0); WHITE BLOOD COUNT (AUTO) 8.6 K/uL (4.8-10.8)
[2024-06-04] MEDS ORDERED: NACL 0.9% 1,000 ML IV ONE (22:45)
[2024-06-04 22:50] LABS: ALBUMIN 3.6 g/dL (3.4-4.8); BILIRUBIN,DIRECT 0.1 mg/dL (0.0-0.3); CREATININE 0.75 mg/dL (0.55-1.30); POTASSIUM 4.1 mmol/L (3.5-5.1); TOTAL BILIRUBIN 0.3 mg/dL (0.0-1.0)
[2024-06-04] MEDS: ONDANSETRON HCL 4 MG/2 ML VIAL IVP ONE (23:05)
[2024-06-04] MEDS: MORPHINE 4 MG INJ. 4 MG/ML VIAL IVP ONE (23:09)
[2024-06-05] VITALS (8 sets, daily range): BP systolic 98–114; PULSE 70–94; RESP 16–20; TEMP 97.6–100; O2SAT 96–99
[2024-06-05] MEDS: MORPHINE 4 MG INJ. 4 MG/ML VIAL IVP ONE (00:05)
[2024-06-05] MEDS: NACL 0.9% 1,000 ML IV ONE ×2 (00:13→00:14)
[2024-06-05 00:50] LABS: BILIRUBIN,URINE NEGATIVE (NEGATIVE); BLOOD, URINE NEGATIVE (NEGATIVE); CLARITY/URINE CLEAR (CLEAR); COLOR,URINE YELLOW (YELLOW); GLUCOSE,URINE NEGATIVE (NEGATIVE); KETONES,URINE TRACE (NEGATIVE); LEUKOCYTE ESTERASE ,URINE 2+ (NEGATIVE); NITRITE, URINE NEGATIVE (NEGATIVE); PH,URINE 7.5 (5.0-8.0); PROTEIN URINE NEGATIVE (NEGATIVE); UROBILINOGEN,URINE 0.2 (0.2-1.0)
[2024-06-05] MEDS: PANTOPRAZOLE SODIUM 40 MG/VIAL (PROTONIX) ONE (03:56)
[2024-06-05] MEDS: PANTOPRAZOLE SODIUM 80 MG in NS 100 ML IV ONE (04:13)
[2024-06-05] MEDS ORDERED: OXYC1TAB10 PO (04:33)
[2024-06-05] MEDS ORDERED: IBUP-1970 PO (04:34)
[2024-06-05] MEDS ORDERED: PROC10TA69 PO (04:34)
[2024-06-05] MEDS ORDERED: LIDOINT TP (04:34)
[2024-06-05] MEDS: MORPHINE 2 MG/ML INJ. SYRINGE IVP PRN (05:39)
[2024-06-05] MEDS: ACETAMINOPHEN 500 MG TABLET PO PRN (05:40)
[2024-06-05] MEDS: D5/0.45 NS 1,000 ML IV SCH (05:41)
[2024-06-05 06:54] LABS: BASOPHILS % (AUTO) 0.2 % (0.0-2.0); EOSINOPHILS % (AUTO) 0.1 % (0.0-4.0); HEMATOCRIT 33.5 % (36-48); HEMOGLOBIN 11.3 g/dL (12.0-16.0); LYMPHOCYTES # (AUTO) 1.3 K/uL (1.0-5.5); LYMPHOCYTES % (AUTO) 19.3 % (20.5-51.5); MEAN CORPUSCULAR HEMOGLOBIN 32 pg (27-31); MEAN CORPUSCULAR HGB CONC 34 % (32-36); MEAN CORPUSCULAR VOLUME 95 fL (79.0-98.0); MONOCYTES # (AUTO) 0.4 K/uL (0.0-1.0); MONOCYTES % (AUTO) 6.6 % (1.7-9.3); NEUTROPHILS # (AUTO) 4.9 K/uL (1.8-7.7); NEUTROPHILS % (AUTO) 73.8 % (40.0-70.0); PLATELET COUNT (AUTO) 227 K/uL (130-430); RED BLOOD CELL COUNT(AUTO) 3.52 MIL/uL (4.2-6.2); RED CELL DISTRIBUTION WIDTH 13.8 % (9.0-15.0); WHITE BLOOD COUNT (AUTO) 6.6 K/uL (4.8-10.8)
[2024-06-05] MEDS ORDERED: PANTOPRAZOLE SODIUM 40 MG/VIAL (PROTONIX) IVP SCH (09:00)
[2024-06-05] MEDS: ONDANSETRON HCL 4 MG/2 ML VIAL IVP PRN (10:16)
[2024-06-05] MEDS: ALPRAZolam 0.25 MG TABLET PO PRN (15:13)
[2024-06-05] MEDS ORDERED: iohexoL 350 mgI/mL, 100 ML INFUS..BTL IV ONE (15:46)
[2024-06-05 16:50] LABS: BASOPHILS % (AUTO) 0.3 % (0.0-2.0); EOSINOPHILS % (AUTO) 0.1 % (0.0-4.0); HEMATOCRIT 38.1 % (36-48); LYMPHOCYTES # (AUTO) 0.6 K/uL (1.0-5.5); LYMPHOCYTES % (AUTO) 7.4 % (20.5-51.5); MEAN CORPUSCULAR HEMOGLOBIN 32 pg (27-31); MEAN CORPUSCULAR HGB CONC 34 % (32-36); MEAN CORPUSCULAR VOLUME 94 fL (79.0-98.0); MONOCYTES # (AUTO) 0.3 K/uL (0.0-1.0); MONOCYTES % (AUTO) 3.3 % (1.7-9.3); NEUTROPHILS # (AUTO) 7.7 K/uL (1.8-7.7); NEUTROPHILS % (AUTO) 88.9 % (40.0-70.0); PLATELET COUNT (AUTO) 267 K/uL (130-430); RED BLOOD CELL COUNT(AUTO) 4.04 MIL/uL (4.2-6.2); RED CELL DISTRIBUTION WIDTH 13.7 % (9.0-15.0); WHITE BLOOD COUNT (AUTO) 8.7 K/uL (4.8-10.8)
[2024-06-05] MEDS: PANTOPRAZOLE SODIUM 40 MG/VIAL (PROTONIX) IVP SCH (20:19)
[2024-06-05] MEDS: PROCHLORPERAZINE EDISYLATE 10 MG/2 ML VIAL IVP PRN (23:06)
[2024-06-06] VITALS: PULSE 62; RESP 16
[2024-06-06 04:00] VITALS: PULSE 64
[2024-06-06 06:08] LABS: BASOPHILS % (AUTO) 0.2 % (0.0-2.0); EOSINOPHILS % (AUTO) 0.1 % (0.0-4.0); HEMATOCRIT 34.8 % (36-48); HEMOGLOBIN 11.5 g/dL (12.0-16.0); LYMPHOCYTES # (AUTO) 1.4 K/uL (1.0-5.5); LYMPHOCYTES % (AUTO) 19.2 % (20.5-51.5); MEAN CORPUSCULAR HEMOGLOBIN 32 pg (27-31); MEAN CORPUSCULAR HGB CONC 33 % (32-36); MEAN CORPUSCULAR VOLUME 95 fL (79.0-98.0); MONOCYTES # (AUTO) 0.7 K/uL (0.0-1.0); NEUTROPHILS # (AUTO) 5.3 K/uL (1.8-7.7); NEUTROPHILS % (AUTO) 71.5 % (40.0-70.0); PLATELET COUNT (AUTO) 239 K/uL (130-430); RED BLOOD CELL COUNT(AUTO) 3.65 MIL/uL (4.2-6.2); RED CELL DISTRIBUTION WIDTH 13.7 % (9.0-15.0); WHITE BLOOD COUNT (AUTO) 7.4 K/uL (4.8-10.8)
[2024-06-06 06:28] LABS: ALBUMIN 3.2 g/dL (3.4-4.8); CALCIUM 8.7 mg/dL (8.4-11.0); CREATININE 0.7 mg/dL (0.55-1.30); POTASSIUM 3.4 mmol/L (3.5-5.1); TOTAL BILIRUBIN 0.4 mg/dL (0.0-1.0); TOTAL PROTEIN, SERUM 7.5 g/dL (6.4-8.3)
[2024-06-06 07:00] VITALS: O2SAT 98
[2024-06-06 08:00] VITALS: BP_SYST 107; PULSE 76; RESP 18; TEMP 97.6; O2SAT 98
[2024-06-06] MEDS: PANTOPRAZOLE SODIUM 40 MG TAB PO ONE (10:16)
[2024-06-06] MEDS ORDERED: PRO40 PO (11:45)
[2024-06-06 12:57] VITALS: BP_SYST 120; PULSE 82; RESP 18; TEMP 98; O2SAT 98
[2024-06-06 13:03] VITALS: BP_SYST 120; PULSE 89; RESP 18; TEMP 98; O2SAT 98
[2024-06-07] MEDS ORDERED: PANTOPRAZOLE SODIUM 40 MG TAB PO SCH (09:00)
== END 2024-06-06 13:20 | disposition home or self-care (01) | DRG 242 ==
LOC: SED 20:31 → STU 06-05 03:30
PROVIDERS: ADMIT Specialist; ATTEND Specialist
DX: K22.6 Gastro-esophageal laceration-hemorrhage syndrome (principal); R65.10 Systemic inflammatory response syndrome (SIRS) of non-infectious origin without acute organ dysfunction; C78.7 Secondary malignant neoplasm of liver and intrahepatic bile duct; C53.9 Malignant neoplasm of cervix uteri, unspecified; F41.9 Anxiety disorder, unspecified; Z79.899 Other long term (current) drug therapy; Z93.3 Colostomy status; Z90.49 Acquired absence of other specified parts of digestive tract; Z85.43 Personal history of malignant neoplasm of ovary; N83.202 Unspecified ovarian cyst, left side
CPT/HCPCS: 36415; 71045; 71250-TC; 80048; 80053; 80076; 81001; 81003; 83605; 85025; 86304; 87040; 93005; 96375; 99285; G0378; J0780; J2270; J2405; J2470; Q9967